=== PATIENT | male | born 1965 | race Caucasian/White ===

== ENCOUNTER → 2018-10-30 13:50 | Outpatient (CLI) | payer OTHER, SELFPAY ==
[2018-10-10 08:43] VITALS: BMI 30.9
--- NOTE | 2018-10-30 13:51 | ECHOCS_ITS ---
Reason For Study: HTN Procedure This was a 2D Doppler, Color Flow transthoracic echocardiogram. The study was technically difficult. Contrast injection was performed. Exam performed in department. Left Ventricle Normal LV size. Moderate eccentric left ventricular hypertrophy. Left ventricular systolic function is normal. The estimated ejection fraction is 70 %. Stage 1 diastolic dysfunction. Mid cavitary dynamic gradient 35 mm/Hg. No regional wall motion abnormalities noted. Right Ventricle Normal RV size. ICD or pacer leads identified within the right ventricle. Normal systolic function. Atria The left atrium is moderately enlarged. Normal right atrium. Mitral Valve Normal mitral valve. Mild (1+) eccentric mitral valve insufficiency. Tricuspid Valve Normal tricuspid valve. Aortic Valve Trisinus/trileaflet aortic valve. Mild (1+) aortic valve insufficiency. Pulmonic Valve Normal pulmonic valve. Great Vessels Normal aortic root. The pulmonary artery is normal size. Normal inferior vena cava. Pericardium/Pleural No pericardial effusion. Medication 22 gauge I.V. with prn adaptor inserted into right arm. Diluted definity 3.5ml given slow IV push to enhance endocardial definition. MMode/2D Measurements & Calculations LVIDd: 5.5 cm IVSd: 1.5 cm Ao root diam: 3.5 cm LVIDs: 2.4 cm LVPWd: 0.85 cm LA dimension: 5.1 cm FS: 56.8 % LAV(MOD-bp): 85.5 ml LA A4 area: 27.5 cm2 RA A4 area: 19.8 cm2 LAV(MOD-bp) Indexed: 38.2 ml/m2 LAV(MOD-sp2): 73.1 ml LAV(MOD-sp4): 99.9 ml Time Measurements MV dec time: 0.24 sec Doppler Measurements & Calculations MV E max osmani: 82.9 cm/sec Lat Peak E' Osmani: 6.2 cm/sec Med Peak E' Osmani: 4.3 cm/sec MV A max osmani: 99.9 cm/sec E/E' lat: 13.4 E/E' med: 19.2 MV E/A: 0.83 MV V2 max: 118.5 cm/sec MV P1/2t max osmani: 91.5 cm/sec Ao V2 max: 188.3 cm/sec MV max P.6 mmHg MV P1/2t: 78.3 msec Ao max P.2 mmHg MV V2 mean: 58.1 cm/sec MV dec slope: 342.2 cm/sec2 MV mean P.6 mmHg MV V2 VTI: 36.3 cm MVA(P1/2t): 2.8 cm2 AI max osmani: 369.3 cm/sec LV V1 max: 176.0 cm/sec PA V2 max: 107.9 cm/sec AI max P.5 mmHg LV V1 max P.4 mmHg AI dec slope: 54.9 cm/sec2 AI P1/2t: 1972 msec Interpretation Summary Normal LV size. Moderate eccentric left ventricular hypertrophy. Left ventricular systolic function is normal. The estimated ejection fraction is 70 %. Stage 1 diastolic dysfunction. Mid cavitary dynamic gradient 35 mm/Hg. Contrast injection was performed. Compared to prior study, there is no significant change. Ordering Physician: Garrett Noguera Referring Physician: Duane Ellison Performed By: West Rojas RCS
== END ==
PROVIDERS: Family Provider Family Medicine; PCP Family Medicine; Referring Provider Internal Medicine Cardiovascular Disease; Visit Provider Internal Medicine Cardiovascular Disease
DX: I10 Essential (primary) hypertension (principal); I42.2 Other hypertrophic cardiomyopathy
CPT/HCPCS: 93306; Q9957; A4216; C8929

== ENCOUNTER → 2019-01-26 15:34 | Outpatient (CLI) | payer OTHER, SELFPAY ==
[2018-10-10 08:43] VITALS: BMI 30.9
[2019-01-26 17:21] LABS: Absolute Lymphocyte Count 4.99 X10^3/uL (0.83-4.51); Absolute Neutrophil Count 4.9 X10^3/uL (2.0-7.7); Basophil# 0.07 X10^3/uL; Basophil% 0.6 % (0-1); Eosinophil# 0.19 X10^3/uL; Eosinophils% 1.7 % (0-5); Hematocrit 49.1 % (40-54); Hemoglobin 16.7 g/dL (13.0-16.5); Lymphocyte # 4.99 X10^3/ul (4.0); Lymphocyte % 44.6 % (19-41); Mean Corpuscular Volume 88.3 fL (80-94); Mean Platelet Vol. 11.5 fl (6.2-12.0); Monocyte# 0.98 X10^3/uL; Monocyte% 8.8 % (0-10); NRBC Flagged by Analyzer 0 % (0-5); Neutrophil # 4.92 X10^3/uL (2.7-7.7); Neutrophil % 43.9 % (47-70); Platelet Count 195 K/mm3 (150-450); RBC Distribution Width CV 13.2 % (11.6-14.6); RBC Distribution Width SD 42.3 fl (35.1-43.9); Red Blood Count 5.56 M/mm3 (4.6-6.2); White Blood Count 11.2 K/mm3 (4.4-11.0)
[2019-01-26 17:53] LABS: Anion Gap 6 (5-15); BUN 20 mg/dL (7-18); BUN/Creat Ratio 18.3 RATIO (10-20); Calcium,Total 8.8 mg/dL (8.5-10.1); Chloride 106 mmol/L (98-107); Creatinine, Serum 1.09 mg/dL (0.70-1.30); EST Glomerular Filtration Rate 74 mL/min (>60); Est Glom Filt Rate - Afr Amer 90 mL/min (>60); Glucose 73 mg/dL (74-106); Magnesium 2.4 mg/dL (1.6-2.6); Potassium 4.2 mmol/L (3.5-5.1); Sodium Level 141 mmol/L (136-145)
== END ==
PROVIDERS: Family Provider Family Medicine; PCP Family Medicine; Referring Provider Nurse Practitioner Family; Visit Provider Nurse Practitioner Family
DX: I42.2 Other hypertrophic cardiomyopathy (principal); I49.8 Other specified cardiac arrhythmias; R53.83 Other fatigue
CPT/HCPCS: 80048; 83735; 85025

== ENCOUNTER → 2019-04-14 10:29 | Outpatient (CLI) | payer OTHER, SELFPAY ==
[2018-10-10 08:43] VITALS: BMI 30.9
[2019-04-14 11:06] LABS: Absolute Lymphocyte Count 4.41 X10^3/uL (0.83-4.51); Absolute Neutrophil Count 4.3 X10^3/uL (2.0-7.7); Basophil# 0.09 X10^3/uL; Basophil% 0.9 % (0-1); Color, Urine Yellow (Yellow); Eosinophil# 0.27 X10^3/uL; Eosinophils% 2.8 % (0-5); Glucose, Dipstick Normal (Normal); Hematocrit 51.8 % (40-54); Hemoglobin 17.4 g/dL (13.0-16.5); Ketone-Dipstick Negative (Negative); Leukocyte Esterase-Dipstick Negative /ul (Negative); Lymphocyte # 4.41 X10^3/ul (4.0); Lymphocyte % 45.5 % (19-41); Mean Corp Hgb Conc 33.6 g/dL (32-36); Mean Corpuscular Hgb 29.6 pg (27.0-32.0); Mean Corpuscular Volume 88.1 fL (80-94); Mean Platelet Vol. 10.9 fl (6.2-12.0); Monocyte# 0.55 X10^3/uL; Monocyte% 5.7 % (0-10); NRBC Flagged by Analyzer 0 % (0-5); Neutrophil # 4.32 X10^3/uL (2.7-7.7); Neutrophil % 44.5 % (47-70); Nitrite-Dipstick Negative (Negative); Occult Blood-Urine Negative /ul (Negative); Platelet Count 197 K/mm3 (150-450); Protein-Dipstick 15 mg/dl (Negative); RBC Distribution Width CV 12.8 % (11.6-14.6); RBC Distribution Width SD 41.7 fl (35.1-43.9); Red Blood Count 5.88 M/mm3 (4.6-6.2); Urine Bilirubin Dipstick Negative (Negative); Urine Clarity Sl. Cloudy (Clear); Urine Urobilinogen Normal (Normal); White Blood Count 9.7 K/mm3 (4.4-11.0)
[2019-04-14 11:30] LABS: ALB/GLOB Ratio 1.3 RATIO (0.9-2.4); AST(SGOT) 30 U/L (15-37); Alanine Aminotransfer ALT/SGPT 50 U/L (16-61); Alkaline Phosphatase 69 U/L (45-117); Anion Gap 4 (5-15); BUN 15 mg/dL (7-18); BUN/Creat Ratio 12.9 RATIO (10-20); Calcium,Total 8.6 mg/dL (8.5-10.1); Chloride 107 mmol/L (98-107); Cholesterol 221 mg/dL (200); Creatinine, Serum 1.16 mg/dL (0.70-1.30); EST Glomerular Filtration Rate 69 mL/min (>60); Est Glom Filt Rate - Afr Amer 84 mL/min (>60); Globulin 3.1 g/dL (2.2-4.2); Glucose 91 mg/dL (74-106); High Density Lipoprotein 51 mg/dL; PSA,Total - Annual Screen 0.43 ng/mL (0.00-4.00); Potassium 4.7 mmol/L (3.5-5.1); Protein, Total 7.1 g/dL (6.4-8.2); Sodium Level 142 mmol/L (136-145); Triglycerides 249 mg/dL; Very Low Density Lipoprotein 50 mg/dL (5-40)
== END ==
PROVIDERS: Family Provider Family Medicine; PCP Family Medicine; Referring Provider Family Medicine; Visit Provider Family Medicine
DX: Z00.00 Encounter for general adult medical examination without abnormal findings (principal); I10 Essential (primary) hypertension; Z12.5 Encounter for screening for malignant neoplasm of prostate
CPT/HCPCS: 36415; 80053; 80061; 81002; 84153; 85025; G0103

== ENCOUNTER → 2020-04-22 16:44 | Outpatient (CLI) | payer OTHER, SELFPAY ==
[2020-04-22 12:49] VITALS: BMI 29.7
[2020-04-22 17:51] LABS: AST(SGOT) 24 U/L (15-37); Alanine Aminotransfer ALT/SGPT 37 U/L (16-61); Alkaline Phosphatase 63 U/L (45-117); Anion Gap 5 (5-15); BUN 20 mg/dL (7-18); BUN/Creat Ratio 18.2 RATIO (10-20); Bilirubin, Direct 0.22 mg/dL (0.00-0.30); Calcium,Total 8.7 mg/dL (8.5-10.1); Chloride 105 mmol/L (98-107); Cholesterol 229 mg/dL (200); EST Glomerular Filtration Rate 73 mL/min (>60); Est Glom Filt Rate - Afr Amer 89 mL/min (>60); Globulin 3.1 g/dL (2.2-4.2); Glucose 80 mg/dL (74-106); High Density Lipoprotein 61 mg/dL; Magnesium 2.4 mg/dL (1.6-2.6); Potassium 4.5 mmol/L (3.5-5.1); Protein, Total 7.1 g/dL (6.4-8.2); Sodium Level 138 mmol/L (136-145); Thyroid Stim Hormone (TSH) 1.94 uIU/mL (0.358-3.74); Triglycerides 158 mg/dL; Very Low Density Lipoprotein 32 mg/dL (5-40)
== END ==
PROVIDERS: PCP Family Medicine; Referring Provider Internal Medicine Cardiovascular Disease; Visit Provider Internal Medicine Cardiovascular Disease
DX: E78.5 Hyperlipidemia, unspecified (principal); I47.1 Supraventricular tachycardia; I42.2 Other hypertrophic cardiomyopathy
CPT/HCPCS: 36415; 80048; 80061; 80076; 83735; 84443

== ENCOUNTER 2020-06-20 06:46 | Day surgery (SDC) | payer OTHER, SELFPAY ==
[2020-04-22 12:49] VITALS: BMI 29.7
--- NOTE | 2020-06-12 11:41 | RAD_ITS ---
STUDY: X-RAY CHEST REASON FOR EXAM: Male, 55 years old. HOCM -- CATHETERIZATION TUESDAY TECHNIQUE: PA and lateral views of the chest. COMPARISON: Comparison is made with prior study dated 01/31/2015. FINDINGS: The lungs are clear and expanded. There is no demonstrated pleural abnormality. Normal size heart. A left-sided ICD is seen. Normal mediastinum and arleth. Normal visualized pulmonary arteries. Normal visualized aortic arch and descending thoracic aorta. There are degenerative changes of the visualized thoracic spine. Normal visualized ribs, clavicles, and shoulders. There is no demonstrated abnormality of the visualized soft tissue structures of the upper abdomen. RAD/Chest PA and Lateral IMPRESSION: No acute abnormality is seen. Electronically Signed: Floyd Tran MD at 11:56 EST , Service support ,
[2020-06-12 12:07] LABS: Absolute Lymphocyte Count 2.83 X10^3/uL (0.83-4.51); Absolute Neutrophil Count 3.4 X10^3/uL (2.0-7.7); Basophil# 0.05 X10^3/uL; Basophil% 0.7 % (0-1); Eosinophil# 0.14 X10^3/uL; Hematocrit 48.1 % (40-54); Hemoglobin 15.7 g/dL (13.0-16.5); Lymphocyte # 2.83 X10^3/ul (4.0); Mean Corp Hgb Conc 32.6 g/dL (32-36); Mean Corpuscular Hgb 29.2 pg (27.0-32.0); Mean Corpuscular Volume 89.4 fL (80-94); Mean Platelet Vol. 11.5 fl (6.2-12.0); Monocyte# 0.48 X10^3/uL; Monocyte% 6.9 % (0-10); NRBC Flagged by Analyzer 0 % (0-5); Neutrophil # 3.38 X10^3/uL (2.7-7.7); Platelet Count 179 K/mm3 (150-450); RBC Distribution Width SD 42.2 fl (35.1-43.9); Red Blood Count 5.38 M/mm3 (4.6-6.2); White Blood Count 6.9 K/mm3 (4.4-11.0)
[2020-06-12 12:40] LABS: Anion Gap 4 (5-15); BUN 17 mg/dL (7-18); BUN/Creat Ratio 15.9 RATIO (10-20); Calcium,Total 9.2 mg/dL (8.5-10.1); Chloride 106 mmol/L (98-107); Creatinine, Serum 1.07 mg/dL (0.70-1.30); EST Glomerular Filtration Rate 76 mL/min (>60); Est Glom Filt Rate - Afr Amer 92 mL/min (>60); Glucose 90 mg/dL (74-106); Potassium 4.7 mmol/L (3.5-5.1); Sodium Level 139 mmol/L (136-145)
[2020-06-19 09:58] VITALS: BMI 29.7
[2020-06-20] VITALS (13 sets, daily range): BP systolic 144–184; BP diastolic 77–96; PULSE 49–64; RESP 8–18; TEMP 36.2–36.6; O2SAT 94–99
--- NOTE | 2020-06-20 06:49 | HP_ITS ---
[facility] History of Present Illness Details: ALVARADO KIRBY, is a 55 M who presents to the office today for a follow-up visit. He is a gentleman with a history of hypertrophic cardiomyopathy hypertension status post ICD implantation who returns today for routine follow-up visit. He had had an episode where he had some symptoms with activity and came in and had his defibrillator interrogated. On he noted some palpitations and his interrogation today did confirm that he did have approximately 7 hours of probable atrial tachyarrhythmia. It appeared to have abated spontaneously. He did have an episode in January as well for a few beats. He otherwise feels well. He has lost a significant amount of weight which is commendable. He denies any chest pain or shortness breath and paroxysmal nocturnal dyspnea. He also denies any pedal edema and has had no neck, jaw discomfort suggest angina he says that he occasionally does feel some palpitations. He had his defibrillator interrogated today. His physical exam today demonstrates clear lungs and systolic murmur at the left sternal border but no pedal edema. His blood pressure is under excellent control. Intake Vital Signs 04/22/20 Height 6 ft 04/22/20 Weight: 219 lb 04/22/20 BMI 29.7 04/22/20 BP 133/80 H 04/22/20 Respiration 16 04/22/20 Pulse 60 04/22/20 Pulse Oximetry (%) 96 Intake Visit Reasons: 1 Y FU, pacer 3:30 Allergies cefadroxil [From Duricef] Allergy (Severe, Verified 04/22/20 12:50) Rash Medications metoprolol succinate 100 mg tablet,extended release 24 hr 100 mg PO BID #180 tab 04/22/20 [Rx Confirmed 04/22/20] Ejection fraction %: 65 to 70 [facility] Medical History Hypertrophic cardiomyopathy (Chronic) Hyperlipidemia (Chronic) History of melanoma (Resolved) Obesity (Chronic) Atrial arrhythmia (Resolved) Frequent PVCs (Resolved) Non-sustained ventricular tachycardia (Resolved) Syncope (Resolved) Surgical History History of implantable cardiac defibrillator (ICD) (Chronic 07/24/14) History of arthroscopic knee surgery (Resolved) History of left heart catheterization (Resolved 06/04/05) History of melanoma excision (Resolved) History of shoulder surgery (Resolved) Family History Father CAD (coronary artery disease) Hx of CABG Myocardial infarction, Onset Age: 41 Uncle CAD (coronary artery disease) Myocardial infarction, Onset Age: 40 Social History (Updated 04/22/20 @ 16:[address] Garrett Noguera MD) Smoking Status: Never smoker alcohol intake: current details: Rare substance use type: does not use ROS Const Const: Positive for weight loss; negative for fatigue, weakness, headache(s), frequent falls, difficulty sleeping or excessive sweating Eyes Eyes: Negative for loss of peripheral vision, transient loss of vision, blurry vision, double vision or tunnel vision ENT ENT: Negative for headache(s), dizziness, Nosebleed/epistaxis or balance problems Cardio Chest Pain: No Palpitations: Yes (feels weak, lightheaded, sob) feels like its: fast, thumping, pounding Edema: None Muscle aches with walking: None Resp Respiratory: Negative for SOB with activity, SOB at rest, SOB orthopnea\SOB lying down, Cough or paroxysmal nocturnal dyspnea GI GI: Negative nausea, vomiting, heartburn or black,tarry stools : Negative for hematuria Musc Musc: Negative for muscle aches/ myalgia, muscle weakness, joint pain or balance problems Skin Skin: Negative non-healing lesions, rash or unusual bruising Neuro Neuro: Negative for dizziness, lightheadedness, near syncope, syncope, orthostatic symptoms, frequent falls, headache(s), weakness, blurry vision, double vision or lack of coordination Amos Hematologic/Lymphatic: Negative for easy bleeding or easy bruising Endo Endo: Negative for fatigue, excessive sweating or increased thirst/drinking Psych Psych: Negative for anxiety or depression Allergy Allergy/Immunology: Negative for hives, Negative for rash Cardiology Exam Const Appearance: cooperative, healthy appearing, no acute distress, well developed and well groomed Nutritional Appearance: average body habitus and well nourished Orientation: alert, awake and oriented x3 Head Head: normal to inspection, normocephalic and atraumatic Ears: hearing grossly normal bilaterally and external ears normal Nose: external nose normal, nares normal, nasal mucous membranes and turbinates normal, septum normal, no nasal discharge Face and Sinus: face symmetric Mouth: oral mucosae normal, tongue normal, oropharynx normal and moist mucous membranes Teeth and gingiva: dentition normal Throat: posterior oropharynx normal, tonsils normal and uvula midline Eyes General: appearance normal, both eyes and all related structures Eyelids: eyelids normal Conjunctivae: conjunctivae normal Pupils: PERRL, normal by confrontation and accommodation normal EOM: EOM intact bilaterally Neck Neck: normal visual inspection, trachea midline and no JVD JVD: +5 Carotids: normal carotid upstroke and bounding pulses Chest Chest inspection: normal inspection of the chest, symmetric chest movement and normal respiratory effort Auscultation: Bilateral: Clear to Auscultation Cardio Palpation: normal PMI Rate: regular rate Rhythm: regular rhythm Heart sounds: S1 normal, S2 normal and normal, physiologic split S2; negative rub, gallop or murmur GI GI: normal to inspection, soft, no hepatosplenomegaly and bowel sounds present Neuro General: alert, awake, oriented x3, gait normal, moves all extremities and no focal sensory deficit Skin Skin: no rashes or lesions noted Extremities Pulses: Normal: Right Femoral Pulse, Left Femoral Pulse, Right Dorsalis Pedis Pulse, Left Dorsalis Pedis Pulse, Right Posterior Tibial Pulse, Left Posterior Tibial Pulse, Right Radial Pulse, Left Radial Pulse Lower Extremity Edema: None: Bilateral Musculoskel Musculoskeletal: No joint tenderness Psych Psychological: normal affect Assessment & Plan 1. Hypertrophic cardiomyopathy I42.2 Plan He does have a history of hypertrophic cardiomyopathy his last echocardiogram in October 2018 demonstrated an ejection fraction of 70%, moderate left ventricular hypertrophy, mid cavity gradient of 35 mmHg. He has had no other symptomatology and the plan is to continue the same and repeat the echo at his next visit. Orders Orders: Basic Metabolic Profile (BMP) Today Liver Profile Today 2. History of implantable cardiac defibrillator (ICD) Z95.810 Plan He is status post ICD implantation his ICD was interrogated today it is noted to be functioning well with a longevity of 6 years. He did notice some atrial tachyarrhythmias which was confirmed I have suggested that he can take an extra metoprolol if this happens again. I do not think there is a reason for an antiarrhythmic at this time. No evidence of atrial fibrillation was noted. 3. Atrial tachycardia I47.1 Plan He does have a history of atrial tachyarrhythmia and this would continue to be monitored through our device clinic. Thank you for allowing me to participate in his care. A lipid profile is also warranted for risk stratification. 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) Coding Level of Care Code Off vis,est,level 4 Diagnoses Hypertrophic cardiomyopathy I42.2 History of implantable cardiac defibrillator (ICD) Z95.810 Atrial tachycardia I47.1 Coding Level of Care Code Off vis,est,level 4 Diagnoses Hypertrophic cardiomyopathy I42.2 History of implantable cardiac defibrillator (ICD) Z95.810 Atrial tachycardia I47.1 Supplemental Info Supplemental Information Labs LDL Cholesterol 120 mg/dL (0-130) 04/14/19 HDL Cholesterol 51 mg/dL (40-) 04/14/19 Triglycerides 249 mg/dL (-199) H 04/14/19 VLDL Cholesterol 50 mg/dL (5-40) H 04/14/19 Diagnostics Echocardiogram 10/30/18 Pacemaker Check 05/25/19
--- NOTE | 2020-06-20 08:37 | CL.D_ITS ---
Patient Name: ALVARADO KIRBY Study Date: 06/20/2020 Performing: Garrett Noguera MD Ht: 72.04 inches 183 cm : 1965 Wt: 218.26 lbs 99 kg Age: 55 Gender: male BSA: 2.21 PROCEDURE(S) PERFORMED [id number]/COR/LV [id number] W OR WO PTCA, SINGLE CORONARY ARTERY CLINICAL PROFILE AND INDICATIONS Indications: Cardiac Arrythmia Heart Failure: None Stress/Imaging Stress/Image Study Performed: No CAD Presentations: No Sxs, no angina. CONCLUSIONS High-grade stenosis of the mid left circumflex artery. Minimal disease noted in the LAD and right co ronary artery RECOMMENDATIONS Referred for immediate PCI DESCRIPTION OF PROCEDURE The patient arrived to the procedure lab. The risks and benefits of the procedure as well as a full d escription of our services here and current unavailability of surgical backup were fully explained to the patient and/or their significant other prior to the catheterization. The Timeout was completed, verifying the correct patient and procedure. The patient's procedural site was prepped and draped in the usual fashion. Local anesthetic was given subcutaneously to right radial region with Lidocaine 2% . Using a modified Seldinger technique, arterial access was obtained via the right radial artery, a 6 Fr sheath was inserted. Left Coronary Artery selective angiography was performed in multiple views u sing a 5 Fr. 4.0 [place] catheter. Right Coronary Artery selective angiography was then performed in mu ltiple views using a 5 Fr. 4.0 [place] catheter. Left Ventriculography was performed in JAY projection using a 5 Fr. Pigtail catheter. LV to AO pullback pressures were then recorded. CORONARY ANGIOGRAPHY DOMINANCE: Right Dominant LEFT HEART ASSESSMENT Left Ventricular Ejection Fraction: by LV Gram 70 % Normal LV wall motion Cardiomyopathy: Hypertrophic LEFT MAIN: Angiographically normal LEFT ANTERIOR DESCENDING ARTERY: Mild luminal irregularities CIRCUMFLEX ARTERY: MID CIRC: 99 % Stenosis RIGHT CORONARY ARTERY: Mild luminal irregularities COMPLICATIONS PROCEDURE MEDICATIONS Fentanyl 50 mcg IV Versed 1 mg IV Versed 1 mg IV Oxygen: 2 L/min via nasal cannula Brilinta 180 mg PO @ 06/20/2020 08:16:42 Heparin diluted in 23cc Heparinized saline. Patient given 10cc IA of this solution. 06/20/2020 07:58:2 5 Verapamil 2.5mg, Ntg 100mcgs, 2000 units of Heparin diluted in 23cc Heparinized saline. Patient give n 10cc IA of this solution. 06/20/2020 07:58:25 SUMMARY OF HEMODYNAMIC DATA Time AIR REST ECG 07:14:41 AO 136/78 (102) SA 08:13:45 LV 105/9, 19 08:19:35 LV 102/8, 14 08:19:41 LV 108/12, 22 08:20:46 LVp 107/11, 19 08:20:50 AOp 114/70 (91) 08:20:55 Signed By Garrett Noguera MD On 06/20/2020 08:36:46 Garrett Noguera MD
--- NOTE | 2020-06-20 10:30 | EKG12_ITS ---
Test Reason : POST PCI Blood Pressure : / mmHG Vent. Rate : 054 BPM Atrial Rate : 054 BPM P-R Int : 170 ms QRS Dur : 112 ms QT Int : 476 ms P-R-T Axes : 014 -36 106 degrees QTc Int : 451 ms Sinus bradycardia Left axis deviation T wave abnormality, consider lateral ischemia Abnormal ECG Confirmed by WILL JUAN, GARRETT ([id number]), television news video editor PERCY PACKER ([id number]) on 06/24/2020 12:37:25 PM Referred By: Garrett Noguera Confirmed By:GARRETT NOGUERA MD
[2020-06-20] MEDS: 0.9% Normal Saline 1,000 ML 75 ML IV (10:40)
--- NOTE | 2020-06-20 11:29 | CRPHASE1_ITS ---
Patient Communication PHII Cardiac Rehab Discussed with Patient:: Yes Guide to Cardiac Rehab Given to Patient:: Yes Cardiac Rehab Facility Choice List Given to Patient:: Yes - Pt chooses [facility] Choice Program [facility] CR PHII:: Communication Given to CR, Refer to [facility] Manager Performance:: Dr. Haskins Refer Phase II Cardiac Rehab:: Yes Sessions:: 36 sessions - 3 days/wk, 12 weeks Cardiac Rehabilitation Info Cardiac Rehabilitation Program Information: Cardiac Rehabilitation is important for patients like you who are recovering from a heart problem. Cardiac rehabilitation programs are recognized as integral to the continued care of the patient with coronary heart disease. The cardiac rehabilitation program is designed to optimize a patient's physical, psychological, and social functioning. Health special needs caregiver work in cardiac rehabilitation programs and assist you with getting the treatments you need to get stronger and healthier - like exercise, healthy eating habits, and medications. Cardiac rehabilitation has been show to help people with heart problems live longer and have better life enjoyment than people who do not go to cardiac rehabilitation. Please contact the Cardiac Rehabilitation Program at [facility] at in two weeks if you have not heard from them.
--- NOTE | 2020-06-20 11:30 | CRPH1.INSTRU ---
General Education CAD and cardiac anatomy and function:: Patient communicates acknowledgment Explanation of diagnoses and procedures:: Patient communicates acknowledgment Sign/Symptoms of NM:: Patient communicates acknowledgment Antiplatelet therapy: Patient communicates acknowledgment Proper use of NTG-SL: Not instructed Emergency procedures and activation of EMS: Patient communicates acknowledgment Compliance of all prescribed medications: Patient communicates acknowledgment Smoking Nicotine/Smoking Response Code:: Patient communicates acknowledgment Dyslipidemia Dyslipidemia Response Code:: Patient communicates acknowledgment Overweight/Obesity Patient Overweight/Obesity Risk Factors Are:: Overweight = 26-29 Overweight/Obesity:: Patient communicates acknowledgment Hypertension Hypertension:: Patient communicates acknowledgment Heart Disease Heart Disease Response Code:: Patient communicates acknowledgment Diabetes Diabetes:: Patient communicates acknowledgment Metabolic Syndrome Metabolic Syndrome Response Code:: Patient communicates acknowledgment Sedentary Sedentary Response Code:: Patient communicates acknowledgment Stress Stress Response Code:: Patient communicates acknowledgment
--- NOTE | 2020-06-20 13:46 | CL.PCI_ITS ---
PCI Cardiac Cath Report PCI Report: Procedure performed; Successful percutaneous core intervention of high-grade proximal left circumflex stent Using 2.5 x 22 mm drug-eluting stent/resolute Preprocedure stenosis is a 95% and ERROL-3 flow with reduction of stenosis post stent to 0% and maintaining ERROL-3 flow post procedure. Pre-procedure; This patient is a 55-year-old with history of hypertrophic cardiomyopathy, hypertension Had ICD device He is to see his primary irb compliance coordinator Dr. Noguera in the office where he had symptoms of palpitation and atrial arrhythmia his device has been interrogated LV function is preserved Based on his clinical presentation he was brought into the [facility] by his primary irb compliance coordinator underwent cardiac catheterization I reviewed the cardiac catheterization and discussed the plan with the Dr. Noguera He had left main normal angiographically, had mild nonobstructive LAD and left circumflex Had a very high-grade stenosis of at least 95% of the proximal left circumflex which is moderate sized vessel. Patient was given Brilinta 180 mg, aspirin and we used heparin as an anticoagulant Interventional equipment and plan; 1. We used 6 Moldovan 3.5 EBU guide catheter 2. We used 2 x 15 mm balloon We used 2.5 x 22 resolute/drug-eluting stent. Consent; Risk and benefit of the procedure explained in detail the patient elected to proceed informed consent obtained Procedure in detail; We proceed with the guide catheter cannulate the left main ostium without difficulty then we proceed with a run-through wire across the lesion in the proximal left circumflex, followed by balloon dilatation using 2.0 balloon and followed by placement of a drug-eluting stent 2.5 x 22 is explained Patient tolerated the procedure very well with no complication and achievement of excellent result with no evidence of dissection or flow limitation of the left circumflex artery Following this all catheter removed TR band applied to right radial artery area to maintain hemostasis. Conclusion and recommendations; Patient will be on dual antiplatelet therapy with the Brilinta and aspirin at least for 1 year if no complication and will continue on medical therapy with his primary irb compliance coordinator No complication in the Sample Processor. Suleman Haskins MD,[facility]
--- NOTE | 2020-06-20 14:02 | CASEMGMT ---
Pt to be sent home on Brilinta. Pt provided Brilinta copay, explanation provided. Pt denies further questions. No cooncerns returning home.
--- NOTE | 2020-06-20 16:35 | PCM.DC.CCA ---
<Lauren Haynes - Last Filed: 06/20/20 16:58> Discharge Diet: Low fat/ Low Cholesterol Lifting Restrictions: 10 pounds and also avoid any pushing or pulling for 3 days after your test. Call your doctor if your incision/area has: Continuous Slow Oozing, Sudden Increased Bleeding, Increased Pain/ Swelling, Increased Redness, Foul Smelling Discharge, Swelling at the incision site Call your doctor if you observe: Fever of 101 or Higher, Shortness of breath, Chest pain Additional Instructions: You were started on Brilinta. This medication is important to keep you stent open. This can NOT be stopped fro at least one year. At your next Office visit, we can discuss switching this to a less expensive medication if need be. I have also started you on 2 new medications to help with your heart. You were started on Lisinopril and atorvastatin. I sent these to the local pharmacy An appt was made for a follow up visit at the [facility], if you can not make this appt please call the office to reschedule. Allergies/Adverse Reactions: Allergies cefadroxil [From Duricef] Allergy (Severe, Verified 06/19/20 10:07) Rash Medications to take at Discharge aspirin 81 mg tablet,delayed release 81 mg PO DAILY 06/05/20 Atorvastatin Calcium 40 mg PO QHS #30 tab 06/20/20 Lisinopril [Zestril] 5 mg PO DAILY #30 tab 06/20/20 Ticagrelor [Brilinta] 90 mg PO BID #60 tab 06/20/20 atorvastatin 40 mg tablet 40 mg PO DAILY #30 tab 06/20/20 Metoprolol Succinate 25 mg PO BID #60 tab.er.24h 06/21/20 The following prescriptions were given: Atorvastatin Calcium 40 mg PO QHS #30 tab Ticagrelor [Brilinta] 90 mg PO BID #60 tab Transmission Status: Received by [facility]/pharmacy #[id number] Metoprolol Succinate 25 mg PO BID #60 tab.er.24h Transmission Status: Pending to [facility]/pharmacy #[id number] Lisinopril [Zestril] 5 mg PO DAILY #30 tab Transmission Status: Received by [facility]/pharmacy #[id number] Orders to be completed after discharge: Phase II, Outpatient Cardiac Rehab Location: None Selected Primary Care Physician: Duane Ellison MD [Primary Care Provider] - Test Results: Test results from this visit will be discussed in further detail at your follow-up appointment, if applicable. Please Follow Up With: Lauren Haynes PA When: 07/15 at 1:30 Cardiac Rehabilitation Info Cardiac Rehabilitation Program Information: Cardiac Rehabilitation is important for patients like you who are recovering from a heart problem. Cardiac rehabilitation programs are recognized as integral to the continued care of the patient with coronary heart disease. The cardiac rehabilitation program is designed to optimize a patient's physical, psychological, and social functioning. Health managed care director work in cardiac rehabilitation programs and assist you with getting the treatments you need to get stronger and healthier - like exercise, healthy eating habits, and medications. Cardiac rehabilitation has been show to help people with heart problems live longer and have better life enjoyment than people who do not go to cardiac rehabilitation. Please contact the Cardiac Rehabilitation Program at [facility] at in two weeks if you have not heard from them. <Suleman Haskins - Last Filed: 06/21/20 11:30> Discharge Activity: Return to Normal Activity Call your doctor if you observe: Dizziness, Fainting spells, Swelling in the ankles, Increased palpitations (irregular heartbeat), Uncontrolled pain Please follow up with your Primary Care Physician in: 2 weeks Test Results: Test results from this visit will be discussed in further detail at your follow-up appointment, if applicable. Cardiac Rehabilitation Info Cardiac Rehabilitation Program Information: Cardiac Rehabilitation is important for patients like you who are recovering from a heart problem. Cardiac rehabilitation programs are recognized as integral to the continued care of the patient with coronary heart disease. The cardiac rehabilitation program is designed to optimize a patient's physical, psychological, and social functioning. Health managed care director work in cardiac rehabilitation programs and assist you with getting the treatments you need to get stronger and healthier - like exercise, healthy eating habits, and medications. Cardiac rehabilitation has been show to help people with heart problems live longer and have better life enjoyment than people who do not go to cardiac rehabilitation. Please contact the Cardiac Rehabilitation Program at [facility] at in two weeks if you have not heard from them.
[2020-06-20] MEDS: MELATONIN 3 MG TABLET PO (23:59)
[2020-06-21] VITALS (7 sets, daily range): BP systolic 142–165; BP diastolic 80–88; PULSE 48–65; RESP 16; TEMP 36.5–36.7; O2SAT 94–99
--- NOTE | 2020-06-21 00:22 | NURSING ---
Per pt request, vitals and second assessment done at midnight so pt can sleep until 6 am without being woken up. ROSEANN Pickens.
[2020-06-21 08:02] LABS: Hematocrit 48.3 % (40-54); Hemoglobin 16.1 g/dL (13.0-16.5); Mean Corp Hgb Conc 33.3 g/dL (32-36); Mean Corpuscular Hgb 29.8 pg (27.0-32.0); Mean Corpuscular Volume 89.4 fL (80-94); Mean Platelet Vol. 11.5 fl (6.2-12.0); Platelet Count 158 K/mm3 (150-450); RBC Distribution Width CV 13.2 % (11.6-14.6); White Blood Count 6.7 K/mm3 (4.4-11.0)
[2020-06-21] MEDS: Aspirin E.C. 81 MG Tablet PO (08:09)
[2020-06-21] MEDS: TICAGRELOR 90 MG TABLET PO (08:10)
[2020-06-21 08:20] LABS: ALB/GLOB Ratio 1.3 RATIO (0.9-2.4); AST(SGOT) 18 U/L (15-37); Alanine Aminotransfer ALT/SGPT 26 U/L (16-61); Albumin, Serum 3.5 g/dL (3.2-5.0); Alkaline Phosphatase 63 U/L (45-117); Anion Gap 4 (5-15); BUN 12 mg/dL (7-18); BUN/Creat Ratio 13.2 RATIO (10-20); Calcium,Total 8.4 mg/dL (8.5-10.1); Chloride 112 mmol/L (98-107); Creatinine, Serum 0.91 mg/dL (0.70-1.30); EST Glomerular Filtration Rate 91 mL/min (>60); Est Glom Filt Rate - Afr Amer 110 mL/min (>60); Globulin 2.7 g/dL (2.2-4.2); Glucose 101 mg/dL (74-106); Potassium 4.3 mmol/L (3.5-5.1); Protein, Total 6.2 g/dL (6.4-8.2); Sodium Level 141 mmol/L (136-145)
--- NOTE | 2020-06-21 10:00 | EKG12_ITS ---
Test Reason : AM EKG Blood Pressure : / mmHG Vent. Rate : 052 BPM Atrial Rate : 052 BPM P-R Int : 160 ms QRS Dur : 108 ms QT Int : 488 ms P-R-T Axes : 033 -18 087 degrees QTc Int : 453 ms Sinus bradycardia T wave abnormality, consider anterolateral ischemia Abnormal ECG When compared with ECG of 20-JUN-2020 10:08, MANUAL COMPARISON REQUIRED, DATA IS UNCONFIRMED Confirmed by WILL JUAN, GARRETT ([id number]), video tape editor PERCY PACKER ([id number]) on 06/24/2020 12:51:01 PM Referred By: Garrett Noguera Confirmed By:GARRETT NOGUERA MD
--- NOTE | 2020-06-21 12:45 | NURSING ---
at bedside. Discharge teaching completed. Questions answered.
== END 2020-06-21 12:55 | disposition home or self-care (01) ==
LOC: CLSP 06:46 → PCU 10:59
PROVIDERS: Internal Medicine Interventional Cardiology; PCP Family Medicine; Referring Provider Internal Medicine Cardiovascular Disease; Visit Provider Internal Medicine Cardiovascular Disease
DX: I42.2 Other hypertrophic cardiomyopathy (principal); I47.1 Supraventricular tachycardia; Z95.810 Presence of automatic (implantable) cardiac defibrillator; R01.1 Cardiac murmur, unspecified; E78.5 Hyperlipidemia, unspecified; E66.9 Obesity, unspecified; Z88.1 Allergy status to other antibiotic agents; Z82.49 Family history of ischemic heart disease and other diseases of the circulatory system
CPT/HCPCS: 36415; 71046; 80048; 80053; 85025; 85027; 92928; 93005; 93458; 99152; 99153; J7030; J7040; C1725; C1769; C1874; C1887; C1894; C9600; J1327; Q9967

== ENCOUNTER → 2021-01-13 13:56 | Outpatient (CLI) | payer OTHER, SELFPAY ==
[2021-01-13 17:53] LABS: Anion Gap 8 (5-15); BUN 24 mg/dL (7-18); BUN/Creat Ratio 18.2 RATIO (10-20); Calcium,Total 8.4 mg/dL (8.5-10.1); Chloride 105 mmol/L (98-107); Creatinine, Serum 1.32 mg/dL (0.70-1.30); EST Glomerular Filtration Rate 59 mL/min (>60); Est Glom Filt Rate - Afr Amer 72 mL/min (>60); Glucose 86 mg/dL (74-106); Magnesium 2.3 mg/dL (1.6-2.6); Potassium 4.5 mmol/L (3.5-5.1); Sodium Level 141 mmol/L (136-145)
== END ==
PROVIDERS: PCP Family Medicine; Referring Provider Internal Medicine Cardiovascular Disease; Visit Provider Internal Medicine Cardiovascular Disease
DX: I42.2 Other hypertrophic cardiomyopathy (principal); I47.1 Supraventricular tachycardia; I25.10 Atherosclerotic heart disease of native coronary artery without angina pectoris; I51.4 Myocarditis, unspecified; I47.2 Ventricular tachycardia; E78.5 Hyperlipidemia, unspecified; Z85.820 Personal history of malignant melanoma of skin
CPT/HCPCS: 36415; 80048; 83735; 93225; 93226

== ENCOUNTER → 2021-01-23 14:59 | Outpatient (CLI) | payer OTHER, SELFPAY ==
--- NOTE | 2021-01-23 15:01 | ECHOCS_ITS ---
Version 2 Reason For Study: Arrhythmia Procedure This was a 2D Doppler, Color Flow transthoracic echocardiogram. Contrast injection was performed. Exam performed in department. Left Ventricle Normal LV size. Moderate concentric left ventricular hypertrophy. The echo findings are consistent with hypertrophic cardiomyopathy. Mid cavitary obliteration noted. The estimated ejection fraction is 75 %. Left ventricular systolic function is hyperdynamic. [place] : Hypokinetic. Apical wall motion abnormality may reflect pacemaker activation. Right Ventricle Normal RV size. ICD or pacer leads identified within the right ventricle. Normal systolic function. Atria Normal left atrium. Normal right atrium. Mitral Valve Normal mitral valve. Mild (1+) mitral valve insufficiency. Tricuspid Valve Normal tricuspid valve. Mild (1+) tricuspid valve insufficiency. Pulmonary artery systolic pressure is 32 mmHg. Aortic Valve Normal aortic valve. Mild (1+) aortic valve insufficiency. Great Vessels Normal aortic root. The pulmonary artery is normal size. Normal inferior vena cava. Pericardium/Pleural No pericardial effusion. Medication Diluted definity 4ml given slow IV push to enhance endocardial definition. MMode/2D Measurements & Calculations LVIDd: 5.0 cm IVSd: 1.6 cm Ao root diam: 3.4 cm LVIDs: 2.4 cm LVPWd: 1.3 cm RVDd: 3.5 cm FS: 51.9 % LAV(MOD-bp): 57.3 ml LA A4 area: 18.9 cm2 LA dimension(2D): 5.4 cm LAV(MOD-bp) Indexed: 26.1 ml/m2 LAV(MOD-sp2): 64.5 ml LAV(MOD-sp4): 49.9 ml RA A4 area: 15.6 cm2 Doppler Measurements & Calculations MV E max osmani: 78.5 cm/sec Lat Peak E' Osmani: 7.1 cm/sec Med Peak E' Osmani: 3.9 cm/sec MV A max osmani: 90.8 cm/sec E/E' lat: 11.1 E/E' med: 20.3 MV E/A: 0.86 Ao V2 max: 179.8 cm/sec AI max osmani: 365.7 cm/sec LV V1 max: 160.0 cm/sec Ao max P.9 mmHg AI max P.5 mmHg LV V1 max P.2 mmHg Ao V2 mean: 133.7 cm/sec AI dec slope: 126.3 cm/sec2 Ao mean P.7 mmHg AI P1/2t: 848.3 msec Ao V2 VTI: 39.9 cm PA V2 max: 114.6 cm/sec TR max osmani: 268.2 cm/sec TR max P.8 mmHg ECHO/Echo Complete W/ Contrast Interpretation Summary Normal LV size. Moderate concentric left ventricular hypertrophy. The estimated ejection fraction is 75 %. Left ventricular systolic function is hyperdynamic. Mid cavitary obliteration noted Contrast injection was performed. Ordering Physician: Garrett Noguera Referring Physician: Duane Ellison Performed By: Vianey Pacheco, ALEJANDRA, RVT
== END ==
PROVIDERS: PCP Family Medicine; Referring Provider Internal Medicine Cardiovascular Disease; Visit Provider Internal Medicine Cardiovascular Disease
DX: I42.2 Other hypertrophic cardiomyopathy (principal); I47.1 Supraventricular tachycardia; Z95.5 Presence of coronary angioplasty implant and graft
CPT/HCPCS: 93306; Q9957; A4216; C8929; J3490

== ENCOUNTER 2021-05-05 08:28 | Outpatient (CLI) | payer OTHER, SELFPAY | END 2021-05-05 23:59 | disposition short-term general hospital (02) | LOC: LABSPEC 08:29 | PROVIDERS: PCP Family Medicine; Referring Provider Physician Assistant Surgical; Visit Provider Physician Assistant Surgical | DX: Z11.52 Encounter for screening for COVID-19 (principal) | CPT/HCPCS: 87635; U0003; U0005 ==

== ENCOUNTER → 2021-09-29 | Outpatient (CLI) | payer OTHER, SELFPAY | END | disposition home or self-care (01) | PROVIDERS: PCP Family Medicine; Visit Provider Physician Assistant Medical | DX: G47.33 Obstructive sleep apnea (adult) (pediatric) (principal) | CPT/HCPCS: 95811 ==

== ENCOUNTER → 2021-10-03 | Outpatient (CLI) | payer OTHER, SELFPAY ==
[2021-10-03 11:18] LABS: Absolute Lymphocyte Count 3.62 X10^3/uL (0.83-4.51); Absolute Neutrophil Count 3.6 X10^3/uL (2.0-7.7); Basophil# 0.05 X10^3/uL; Basophil% 0.6 % (0-1); Eosinophil# 0.14 X10^3/uL; Eosinophils% 1.8 % (0-5); Hemoglobin 16.1 g/dL (13.0-16.5); Lymphocyte # 3.62 X10^3/ul (0.83-4.51); Lymphocyte % 45.4 % (19-41); Mean Corp Hgb Conc 33.5 g/dL (32-36); Mean Corpuscular Hgb 29.5 pg (27.0-32.0); Mean Corpuscular Volume 88.1 fL (80-94); Mean Platelet Vol. 10.9 fl (6.2-12.0); Monocyte# 0.55 X10^3/uL; Monocyte% 6.9 % (0-10); NRBC Flagged by Analyzer 0 % (0-5); Platelet Count 178 K/mm3 (150-450); RBC Distribution Width CV 13.3 % (11.6-14.6); RBC Distribution Width SD 42.8 fl (35.1-43.9); Red Blood Count 5.45 M/mm3 (4.6-6.2)
[2021-10-03 12:07] LABS: ALB/GLOB Ratio 1.2 RATIO (0.9-2.4); AST(SGOT) 32 U/L (15-37); Alanine Aminotransfer ALT/SGPT 55 U/L (16-61); Albumin, Serum 3.7 g/dL (3.2-5.0); Alkaline Phosphatase 66 U/L (45-117); Anion Gap 3 (5-15); BUN 18 mg/dL (7-18); BUN/Creat Ratio 16.1 RATIO (10-20); Calcium,Total 8.3 mg/dL (8.5-10.1); Chloride 108 mmol/L (98-107); Cholesterol 112 mg/dL (200); Creatinine, Serum 1.12 mg/dL (0.70-1.30); EST Glomerular Filtration Rate 71 mL/min (>60); Est Glom Filt Rate - Afr Amer 86 mL/min (>60); Glucose 94 mg/dL (74-106); High Density Lipoprotein 48 mg/dL; PSA,Total - Annual Screen 0.46 ng/mL (0.00-4.00); Potassium 4.6 mmol/L (3.5-5.1); Protein, Total 6.7 g/dL (6.4-8.2); Sodium Level 139 mmol/L (136-145); Triglycerides 49 mg/dL; Very Low Density Lipoprotein 10 mg/dL (5-40)
== END | disposition home or self-care (01) ==
LOC: LAB 10:37
PROVIDERS: PCP Family Medicine; Referring Provider Family Medicine; Visit Provider Family Medicine
DX: Z00.00 Encounter for general adult medical examination without abnormal findings (principal); E78.5 Hyperlipidemia, unspecified; I25.10 Atherosclerotic heart disease of native coronary artery without angina pectoris; I10 Essential (primary) hypertension; Z12.5 Encounter for screening for malignant neoplasm of prostate
CPT/HCPCS: 36415; 80053; 80061; 84153; 85025; G0103

== ENCOUNTER → 2022-01-18 | Outpatient (CLI) | payer OTHER, SELFPAY | END | disposition home or self-care (01) | LOC: SL 08:40 | PROVIDERS: PCP Family Medicine; Visit Provider Nurse Practitioner Acute Care | DX: Z46.89 Encounter for fitting and adjustment of other specified devices (principal) ==

== ENCOUNTER → 2022-04-08 | Outpatient (CLI) | payer OTHER, SELFPAY | END | disposition home or self-care (01) | LOC: SL 13:32 | PROVIDERS: PCP Family Medicine; Visit Provider Internal Medicine Critical Care Medicine | DX: Z46.89 Encounter for fitting and adjustment of other specified devices (principal) ==

== ENCOUNTER → 2022-06-04 | Outpatient (CLI) | payer OTHER, SELFPAY ==
--- NOTE | 2022-06-04 13:45 | ECHOCS_ITS ---
Reason For Study: HOCM Procedure This was a 2D Doppler, Color Flow transthoracic echocardiogram. The study was technically difficult. Contrast injection was performed. Exam performed in department. Left Ventricle Normal LV size. Moderate concentric left ventricular hypertrophy. The estimated ejection fraction is 80 %. Mid cavitary dynamic gradient 32 mmHg increasing to 42 mmHg with Valsalva mm/Hg. Stage 3 diastolic dysfunction. No regional wall motion abnormalities noted. Right Ventricle Normal RV size. ICD or pacer leads identified within the right ventricle. Normal systolic function. Atria The left atrium is mildly enlarged. Normal right atrium. Mitral Valve Normal mitral valve. Mild-Moderate (1-2+) eccentric mitral valve insufficiency. Tricuspid Valve Normal tricuspid valve. Mild (1+) tricuspid valve insufficiency. Pulmonary artery systolic pressure is 30 mmHg. Aortic Valve Trisinus/trileaflet aortic valve. Mild (1+) aortic valve insufficiency. Pulmonic Valve Normal pulmonic valve. Mild (1+) pulmonic valve insufficiency. Great Vessels Normal aortic root. The pulmonary artery is normal size. Normal inferior vena cava. Pericardium/Pleural No pericardial effusion. Medication 22 gauge I.V. with prn adaptor inserted into right arm. Diluted definity 2ml given slow IV push to enhance endocardial definition. MMode/2D Measurements & Calculations LVIDd: 5.4 cm IVSd: 1.4 cm Ao root diam: 3.2 cm LVIDs: 2.7 cm LVPWd: 1.2 cm FS: 49.3 % LAV(MOD-sp4): 93.3 ml LA A4 area: 26.4 cm2 LA dimension(2D): 4.5 cm RA A4 area: 15.4 cm2 Time Measurements MV dec time: 0.23 sec Doppler Measurements & Calculations MV E max osmani: 91.9 cm/sec Lat Peak E' Osmani: 8.9 cm/sec Med Peak E' Osmani: 5.6 cm/sec MV A max osmani: 28.6 cm/sec E/E' lat: 10.3 E/E' med: 16.5 MV E/A: 3.2 MV V2 max: 110.9 cm/sec MV dec slope: 406.2 cm/sec2 Ao V2 max: 153.1 cm/sec MV max P.9 mmHg Ao max P.4 mmHg MV V2 mean: 55.8 cm/sec Ao V2 mean: 118.0 cm/sec MV mean P.6 mmHg Ao mean P.9 mmHg MV V2 VTI: 37.7 cm Ao V2 VTI: 34.6 cm AV (velocity ratio): 0.92 LV V1 max: 145.4 cm/sec PA V2 max: 109.1 cm/sec TR max osmani: 256.2 cm/sec LV V1 max P.5 mmHg PA V2 mean: 65.1 cm/sec TR max P.3 mmHg LV V1 mean P.2 mmHg LV V1 mean: 91.7 cm/sec LV V1 VTI: 31.8 cm ECHO/Echo Complete W/ Contrast Interpretation Summary Normal LV size. The estimated ejection fraction is 80 %. Mid cavitary dynamic gradient 32 mmHg increasing to 42 mmHg with Valsalva mm/Hg . Moderate concentric left ventricular hypertrophy. Stage 3 diastolic dysfunction. The left atrium is mildly enlarged. Contrast injection was performed. Compared to previous study, the left ventricu lar systolic function is the same.. Ordering Physician: Lauren Haynes Referring Physician: Guilherme Ellison M.D. Performed By: Sofia Prado RCS
== END | disposition home or self-care (01) ==
PROVIDERS: PCP Family Medicine; Visit Provider Physician Assistant Medical
DX: I42.2 Other hypertrophic cardiomyopathy (principal)
CPT/HCPCS: 93306; Q9957; A4216; C8929

== ENCOUNTER → 2022-12-21 | Outpatient (CLI) | payer OTHER, SELFPAY ==
--- NOTE | 2022-12-21 12:54 | ECHOLC_ITS ---
Reason For Study: HCOM Procedure This was a limited 2D transthoracic echocardiogram. The study was technically difficult. Contrast injection was performed. Exam performed in department. Left Ventricle Normal LV size. Moderate concentric left ventricular hypertrophy. Left ventricular systolic function is normal. The estimated ejection fraction is 70 %. Mid cavitary dynamic gradient 17 mm at rest to 35 mm with Valsalva. mm/Hg. No regional wall motion abnormalities noted. Right Ventricle Normal RV size. ICD or pacer leads identified within the right ventricle. Normal systolic function. Atria The left atrium is mildly enlarged. Normal right atrium. Great Vessels Normal aortic root. The pulmonary artery is normal size. Normal inferior vena cava. Pericardium/Pleural No pericardial effusion. Medication 22 gauge I.V. with prn adaptor inserted into right arm. Diluted definity 1.5ml given slow IV push to enhance endocardial definition. MMode/2D Measurements & Calculations LVIDd: 5.1 cm IVSd: 1.2 cm LAV(MOD-sp4): 83.0 ml LVIDs: 2.7 cm LVPWd: 1.2 cm FS: 47.1 % SV(MOD-sp4): 91.8 ml LVAd ap4: 40.4 cm2 LVAd ap2: 24.4 cm2 LVLd ap4: 10.1 cm LVLd ap2: 6.4 cm EDV(MOD-sp4): 131.0 ml EDV(MOD-sp2): 75.5 ml EDV(sp4-el): 136.6 ml EDV(sp2-el): 78.8 ml LVAs ap4: 19.4 cm2 LVLs ap4: 8.3 cm ESV(MOD-sp4): 39.2 ml ESV(sp4-el): 38.4 ml EF(MOD-sp4): 70.1 % EF(sp4-el): 71.9 % SV(sp4-el): 98.2 ml LA A4 area: 26.3 cm2 LA dimension(2D): 4.3 cm RA A4 area: 19.7 cm2 ECHO/Echo Limited w/Contrast Interpretation Summary Normal LV size. Left ventricular systolic function is normal. The estimated ejection fraction is 70 %. Mid cavitary dynamic gradient 17 mm at rest to 35 mm with Valsalva. mm/Hg. Moderate concentric left ventricular hypertrophy. Compared to the previous the extent of the gradient is less. Contrast injection was performed. Ordering Physician: Lauren Haynes Referring Physician: Lauren Haynes Performed By: Sofia Prado RCS
== END | disposition home or self-care (01) ==
PROVIDERS: PCP Family Medicine; Referring Provider Physician Assistant Medical; Visit Provider Physician Assistant Medical
DX: I50.9 Heart failure, unspecified (principal); I42.2 Other hypertrophic cardiomyopathy
CPT/HCPCS: 93308; Q9957; A4216; C8924

== ENCOUNTER → 2023-10-10 | Outpatient (CLI) | payer OTHER, SELFPAY ==
[2023-10-10 09:16] LABS: Cholesterol 117 mg/dL (200); High Density Lipoprotein 47 mg/dL; PSA,Total - Annual Screen 0.88 ng/mL (0.00-4.00); Triglycerides 58 mg/dL; Very Low Density Lipoprotein 12 mg/dL (5-40)
== END | disposition home or self-care (01) ==
PROVIDERS: PCP Family Medicine; Visit Provider Family Medicine
DX: Z13.0 Encounter for screening for diseases of the blood and blood-forming organs and certain disorders involving the immune mechanism (principal); E78.1 Pure hyperglyceridemia
CPT/HCPCS: 36415; 80061; 84153; G0103

== ENCOUNTER → 2023-10-12 | Outpatient (CLI) | payer OTHER, SELFPAY ==
[2023-10-12 08:20] LABS: Absolute Lymphocyte Count 3.27 X10^3/uL (0.83-4.51); Absolute Neutrophil Count 4.5 X10^3/uL (2.0-7.7); Basophil# 0.07 X10^3/uL; Basophil% 0.8 % (0-1); Eosinophil# 0.21 X10^3/uL; Eosinophils% 2.4 % (0-5); Hematocrit 45.7 % (40-54); Hemoglobin 15.1 g/dL (13.0-16.5); Lymphocyte # 3.27 X10^3/ul (0.83-4.51); Lymphocyte % 37.9 % (19-41); Mean Corpuscular Hgb 27.9 pg (27.0-32.0); Mean Corpuscular Volume 84.5 fL (80-94); Mean Platelet Vol. 10.8 fl (6.2-12.0); Monocyte# 0.56 X10^3/uL; Monocyte% 6.5 % (0-10); NRBC Flagged by Analyzer 0 % (0-5); Neutrophil # 4.49 X10^3/uL (2.7-7.7); Neutrophil % 52.1 % (47-70); Platelet Count 184 K/mm3 (150-450); RBC Distribution Width CV 14.7 % (11.6-14.6); RBC Distribution Width SD 44.6 fl (35.1-43.9); Red Blood Count 5.41 M/mm3 (4.6-6.2); White Blood Count 8.6 K/mm3 (4.4-11.0)
== END | disposition home or self-care (01) ==
LOC: LAB 08:01
PROVIDERS: PCP Family Medicine; Visit Provider Family Medicine
DX: Z13.0 Encounter for screening for diseases of the blood and blood-forming organs and certain disorders involving the immune mechanism (principal); E78.1 Pure hyperglyceridemia
CPT/HCPCS: 85025

== ENCOUNTER → 2023-12-29 | Outpatient (CLI) | payer OTHER, SELFPAY ==
--- NOTE | 2023-12-29 07:54 | ECHOCS_ITS ---
Reason For Study: Other Hypertrophic Cardiomyopathy Procedure This was a 2D Doppler, Color Flow transthoracic echocardiogram. Contrast injection was performed. Exam performed in department. Left Ventricle Normal LV size. Moderate concentric left ventricular hypertrophy. The estimated ejection fraction is 70 %. Resting LV gradient 34 mmHg. Valsalva LV gradient 42 mmHg. No regional wall motion abnormalities noted. Right Ventricle Normal RV size. ICD or pacer leads identified within the right ventricle. Normal systolic function. Atria Normal left atrium. Normal right atrium. Mitral Valve Normal mitral valve. Tricuspid Valve Normal tricuspid valve. Mild tricuspid valve insufficiency. Pulmonary artery systolic pressure is 26 mmHg. Aortic Valve Trisinus/trileaflet aortic valve. Pulmonic Valve Normal pulmonic valve. Great Vessels Mildly dilated aortic root. The pulmonary artery is normal size. Inferior vena cava collapse with respiration. Pericardium/Pleural No pericardial effusion. Medication 22 gauge I.V. with prn adaptor inserted into right arm. Diluted definity 2.5ml given slow IV push to enhance endocardial definition. MMode/2D Measurements & Calculations LVIDd: 4.9 cm IVSd: 1.7 cm Ao root diam: 3.9 cm LVIDs: 3.7 cm LVPWd: 1.5 cm RVDd: 4.1 cm FS: 24.6 % LAV(MOD-bp): 77.8 ml LVAd ap4: 40.4 cm2 SV(MOD-sp4): 110.1 ml LAV(MOD-bp) Indexed: 33.5 ml/m2 LVLd ap4: 8.8 cm LAV(MOD-sp2): 94.0 ml EDV(MOD-sp4): 150.8 ml LAV(MOD-sp4): 61.8 ml EDV(sp4-el): 157.3 ml LVAs ap4: 20.0 cm2 LVLs ap4: 8.2 cm ESV(MOD-sp4): 40.7 ml ESV(sp4-el): 41.7 ml EF(MOD-sp4): 73.0 % EF(sp4-el): 73.5 % SV(sp4-el): 115.6 ml LA A4 area: 21.6 cm2 LA dimension(2D): 4.3 cm RA A4 area: 16.1 cm2 TAPSE: 2.0 cm Time Measurements MV dec time: 0.26 sec Doppler Measurements & Calculations MV E max osmani: 75.7 cm/sec Lat Peak E' Osmani: 7.9 cm/sec Med Peak E' Osmani: 4.5 cm/sec MV A max osmani: 73.1 cm/sec E/E' lat: 9.5 E/E' med: 16.8 MV E/A: 1.0 MV V2 max: 85.7 cm/sec MV P1/2t max osmani: 88.8 cm/sec Ao V2 max: 171.0 cm/sec MV max P.9 mmHg MV P1/2t: 85.4 msec Ao max P.7 mmHg MV V2 mean: 46.0 cm/sec MV dec slope: 304.4 cm/sec2 Ao V2 mean: 120.6 cm/sec MV mean P.0 mmHg MVA(P1/2t): 2.6 cm2 Ao mean P.7 mmHg MV V2 VTI: 34.3 cm Ao V2 VTI: 35.8 cm AV (velocity ratio): 0.96 LV V1 max: 146.3 cm/sec PA V2 max: 88.8 cm/sec TR max osmani: 241.2 cm/sec LV V1 max P.6 mmHg PA max PG (full): 1.2 mmHg TR max P.3 mmHg LV V1 mean P.6 mmHg LV V1 mean: 98.9 cm/sec LV V1 VTI: 34.3 cm ECHO/Echo Complete W/ Contrast Interpretation Summary Normal LV size. Moderate concentric left ventricular hypertrophy. The estimated ejection fraction is 70 %. Resting LV gradient 34 mmHg. Mildly dilated aortic root. Contrast injection was performed. Ordering Physician: Lauren Haynes Referring Physician: Lauren Haynes Performed By: West Rojas RCS
== END | disposition home or self-care (01) ==
PROVIDERS: PCP Family Medicine; Referring Provider Physician Assistant Medical; Visit Provider Physician Assistant Medical
DX: I42.2 Other hypertrophic cardiomyopathy (principal)
CPT/HCPCS: 93306; Q9957; A4216; C8929

== ENCOUNTER → 2025-03-05 | Outpatient (CLI) | payer OTHER, SELFPAY ==
--- NOTE | 2025-03-05 07:56 | ECHOCS_ITS ---
Reason For Study Reason For Study: HCM Procedure This was a 2D Doppler, Color Flow transthoracic echocardiogram. Contrast injection was performed. Exam performed in department. Left Ventricle Normal LV size. Moderate concentric left ventricular hypertrophy. The left ventricular ejection fraction is 65 %. Resting LV gradient 24 mmHg. Valsalva LV gradient 42 mmHg. No regional wall motion abnormalities noted. Right Ventricle Normal RV size. ICD or pacer leads identified within the right ventricle. Normal systolic function. Atria Normal left atrium. Normal right atrium. Mitral Valve Mild-Moderate (1-2+) eccentric mitral valve insufficiency. Tricuspid Valve Normal tricuspid valve. Mild (1+) tricuspid valve insufficiency. Pulmonary artery systolic pressure is 33 mmHg. Aortic Valve Trisinus/trileaflet aortic valve. Mild (1+) aortic valve insufficiency. Pulmonic Valve Normal pulmonic valve. Mild (1+) pulmonic valve insufficiency. Great Vessels Mild to moderately dilated aortic root. The pulmonary artery is normal size. Inferior vena cava collapse with respiration. Pericardium/Pleural No pericardial effusion. Medication 22 gauge I.V. with prn adaptor inserted into right arm. Diluted definity 2ml given slow IV push to enhance endocardial definition. MMode/2D Measurements & Calculations LVIDd: 4.8 cm IVSd: 1.7 cm Ao root diam: 4.1 cm LVIDs: 2.4 cm LVPWd: 1.4 cm RVDd: 4.2 cm FS: 49.8 % asc Aorta Diam: 4.0 cm LAV(MOD-bp): 71.8 ml LVAd ap4: 43.6 cm2 LAV(MOD-bp) Indexed: 31.8 ml/m2 LVLd ap4: 9.5 cm LAV(MOD-sp2): 79.1 ml EDV(MOD-sp4): 164.7 ml LAV(MOD-sp4): 63.6 ml EDV(sp4-el): 170.7 ml LVAs ap4: 26.9 cm2 LVLs ap4: 8.2 cm ESV(MOD-sp4): 72.4 ml ESV(sp4-el): 74.8 ml EF(MOD-sp4): 56.0 % EF(sp4-el): 56.2 % LVAd ap2: 42.9 cm2 SV(MOD-sp4): 92.3 ml SV(MOD-sp2): 108.2 ml LVLd ap2: 9.2 cm SI(MOD-sp4): 40.8 ml/m2 SI(MOD-sp2): 47.9 ml/m2 EDV(MOD-sp2): 166.9 ml EDV(sp2-el): 169.1 ml LVAs ap2: 23.8 cm2 LVLs ap2: 8.2 cm ESV(MOD-sp2): 58.7 ml ESV(sp2-el): 58.8 ml EF(MOD-sp2): 64.8 % SV(sp4-el): 96.0 ml Ao sinus diam: 3.[address] [place]: 3.0 cm LA dimension(2D): 4.9 cm LA A4 area: 20.5 cm2 RA A4 area: 15.2 cm2 TAPSE: 1.5 cm Time Measurements MV dec time: 0.30 sec Doppler Measurements & Calculations MV E max osmani: 86.4 cm/sec Lat Peak E' Osmani: 8.5 cm/sec Med Peak E' Osmani: 5.7 cm/sec MV A max osmani: 77.0 cm/sec E/E' lat: 10.2 E/E' med: 15.0 MV E/A: 1.1 MV dec slope: 284.7 cm/sec2 Ao V2 max: 163.4 cm/sec AI max osmani: 370.9 cm/sec Ao max P.7 mmHg AI max P.1 mmHg Ao V2 mean: 129.2 cm/sec AI dec slope: 175.4 cm/sec2 Ao mean P.2 mmHg AI P1/2t: 619.5 msec Ao V2 VTI: 38.7 cm AV (velocity ratio): 0.85 LV V1 max: 137.3 cm/sec PA V2 max: 86.4 cm/sec PI end-d osmani: 178.9 cm/sec LV V1 max P.5 mmHg LV V1 mean P.7 mmHg LV V1 mean: 103.6 cm/sec LV V1 VTI: 32.8 cm TR max osmani: 270.6 cm/sec TR max P.3 mmHg ECHO/Echo Complete W/ Contrast Interpretation Summary Normal LV size. Moderate concentric left ventricular hypertrophy. The left ventricular ejection fraction is 65 %. Valsalva LV gradient 42 mmHg. Resting LV gradient 24 mmHg. Ordering Physician: Lauren Haynes Referring Physician: Lauren Haynes Performed By: Imani Andersen RDCS
== END | disposition home or self-care (01) ==
LOC: CVS 07:54
PROVIDERS: PCP Family Medicine; Referring Provider Physician Assistant Medical; Visit Provider Physician Assistant Medical
DX: I42.2 Other hypertrophic cardiomyopathy (principal)
CPT/HCPCS: 93306; Q9957; A4216; C8929

== ENCOUNTER 2025-03-08 23:31 | Emergency (ER) | payer OTHER, SELFPAY ==
[2025-03-08 23:33] VITALS: BP 140/71; PULSE 62; RESP 16; TEMP 36.6; O2SAT 98; BMI 32.2
--- NOTE | 2025-03-08 23:56 | EKG12_ITS ---
Test Reason : DYSRHYTHMIA Blood Pressure : */* mmHG Vent. Rate : 61 BPM Atrial Rate : 61 BPM P-R Int : 180 ms QRS Dur : 122 ms QT Int : 456 ms P-R-T Axes : 25 -53 98 degrees QTcB Int : 459 ms Normal sinus rhythm Left anterior fascicular block Left ventricular hypertrophy with QRS widening and repolarization abnormality ( R in aVL , Harman product , Romhilt-Crockett ) Abnormal ECG Confirmed by WILL JUAN, KENNY ([id number]), associate entertainment editor PERCY PACKER ([id number]) on 03/11/2025 1:34:17 PM Referred By: Confirmed By: KENNY SOLIS MD
[2025-03-09 00:15] VITALS: BP 118/75; BP 126/71; BP 131/67
[2025-03-09 00:17] LABS: Hematocrit 49.0 % (40-54); Hemoglobin 16.9 g/dL (13.0-16.5); Immature Granulocytes Count 0.030 X10^3/uL (0.0-0.0); Mean Corp Hgb Conc 34.5 g/dL (32-36); Mean Corpuscular Volume 86.0 fL (80-94); Mean Platelet Vol. 11.4 fl (6.2-12.0); NRBC Flagged by Analyzer 0 % (0-5); Platelet Count 189 K/mm3 (150-450); RBC Distribution Width CV 13.4 % (11.6-14.6); RBC Distribution Width SD 41.7 fl (35.1-43.9); Red Blood Count 5.70 M/mm3 (4.6-6.2); White Blood Count 9.8 K/mm3 (4.4-11.0)
[2025-03-09 00:33] LABS: Magnesium 2.2 mg/dL (1.5-2.2)
[2025-03-09 00:37] LABS: Anion Gap 13 (5-15); BUN 17 mg/dL (4-19); BUN/Creat Ratio 16.3 RATIO (10-20); Calcium,Total 8.7 mg/dL (7.6-11.0); Carbon Dioxide 21.2 mmol/L (21.0-32.0); Chloride 104 mmol/L (98-108); Estimated Creatinine Clearance 92.87 ml/min (50-250); Glucose 104 mg/dL (70-99); Potassium 3.9 mmol/L (3.3-5.1)
--- OUTSIDE RECORDS SUMMARY | 2025-03-09 01:06 | XMS RPT_ITS | CCD ---
Author Organization [facility] Care Team Providers Care Business Development Agent Name Role Phone ROSEANN Cedeno, Taylor Guardado Unavailable Unavailable ROSEANN Cedeno, Taylor Guardado Unavailable Unavailable ROSEANN Cedeno, Taylor Guardado Unavailable Unavailable THEODORE ALLISON Attending Unavailable REFERRING, GIFTY WO ID~[id number] Primary Care Unava ilable Laci Eller Unavailable Unavailable Unavailable Dr. Laci Eller Primary Care Provider Dr. Laci Eller Referring Provider JULIO Fisher Attending Provider Dr. Laci Eller Primary Care Provider Dr. Laci Eller Referring Provider JULIO Fisher Attending Provider Dr. Laci Eller Primary Care Provider Dr. Laci Eller Referring Provider [phone] Brian LOPEZ, JOHN-Meño Kimbrough Attending Provider Laci Eller MD Primary Care Provider Dr. Laci Eller Primary Care Provider Dr. Laci Eller Referring Provider Dr. Johann Blunt Attending Provider JULIO Fisher Attending Provider Dr. Garrett Noguera Attending Provider Dr. Laci Eller Primary Care Provider Dr. Laci Eller Referring Provider Alexandrea Cedeno Attending Provider Unavailable JULIO Fisher Attending Provider Dr. Garrett Noguera Attending Provider Laci Eller MD Primary Care Provider RAFITA, LACI SIERRA Primary Care Unavailab le INGRAM, MOUNA Y Referring Unavailable RAFITA, LACI SIERRA Primary Care Unavailab le RAFITA, LACI SIERRA Referring Unavailab le RAFITA, LACI SIERRA Primary Care Unavailab le RAFITA, LACI SIERRA Referring Unavailab le INGRAM, MOUNA Y Referring Unavailable RAFITA, LACI SIERRA Primary Care Unavailab Laci Ambriz MD Primary Care Provider LACI ELLER Attending Unavailab le RAFITA, LACI SIERRA Primary Care Unavailab le RAFITA, LACI SIERRA Attending Unavailab le RAFITA, LACI SIERRA Primary Care Unavailab le RAFITA, LACI SIERRA Attending Unavailab le SELF Referring Unavailable RAFITA, LACI SIERRA Primary Care Unavailab le RAFITA, LACI SIERRA Attending Unavailab le RAFITA, LACI SIERRA Primary Care Unavailab le Rafita Dr. Laci JUAN Primary Care Provider Dr. Laci Eller MD Referring Provider Brian MIDDLEWARE ENGINEER-CKaylan Attending Provider Tal MIDDLEWARE ENGINEER-CSavannah Attending Provider [phone] Dr. Garrett Noguera MD Attending Provider [phone] Alexandrea Cedeno Attending Provider Unavailable Dr. Laci Eller MD Primary Care Provider [phone] Dr. Laci Eller MD Referring Provider Felipe Torres Attending Provider Dr. Laci Eller MD Primary Care Provider Dr. Garrett Noguera MD Attending Provider Dr. Garrett Noguera MD Referring Provider [phone] Dr. Laci Eller MD Referring Provider Rafita, Laci Primary Care Unavailable Surinder Engle Attending Unavailable Rafita, Laci Referring Unavailable Rafita, Laci Primary Care Unavailable Chuckie, Roxobel Referring Unavailable Chuckie, Roxobel Attending Unavailable Rafita, Laci Primary Care Unavailable Chuckie, Garrett Referring Unavailable Chuckie, Garrett Attending Unavailable Rafita, Laci Primary Care Unavailable Chuckie, Roxobel Attending Unavailable Rafita, Laci Referring Unavailable Rafita, Laci Primary Care Unavailable Chuckie, Garrett Attending Unavailable Rafita, Alci Primary Care Unavailable Savannah Parada Attending Unavailable Rafita, Laci Referring Unavailable Rafita, Laci Primary Care Unavailable Alexandrea Cedeno Attending Unavailable Rafita, Laci Referring Unavailable Rafita, Laci Primary Care Unavailable Kaylan Torres NP Attending Unavailable Rafita, Laci Referring Unavailable WilianAlexandrea Attending Unavailable Rafita, Laci Referring Unavailable Rafita, Laci Primary Care Unavailable Lauren Fisher Attending Unavail able Rafita, Laci Referring Unavailable Rafita, Laci Primary Care Unavailable Chuckie, Garrett Referring Unavailable Chuckie, Garrett Attending Unavailable Rafita, Laci Primary Care Unavailable Rafita, Laci Primary Care Unavailable Felipe Torres Attending Unavailable Allergies Allergy Classification Reported Allergen(s) Allergy Type Date of Onset Reaction(s) Facility (3 sources) cefadroxil drug allergy 1 developed a rash [facility] Work Phone: (11 sources) Cefadroxil Drug Allergy 2 Rash [facility] (20 sources) ceFAZolin; Translations: [CEFAZOLIN] Drug Allergy 5 Rash, Itching [facility] (1 source) Cefadroxil Drug Allergy 5 [facility] Repository Medications Current Medications Medication Drug Class(es) Dates Sig (Normalized) Sig (Original) amoxicillin 875 mg / clavulanate 125 mg oral tablet (3 sources) Penicillin-class Antibacterial Start: 11-20-2024 Amoxicillin-Pot Clavulanate 875-125 mg tablet Active 1 {tbl} PO Q12H 14 0 November 20, 2024 12:00am 12 hr dextromethorphan hydrobromide 30 mg / guaiFENesin 600 mg extended release oral tablet (3 sources) Uncompetitive T-dghwwj-R-aspartat e Receptor Antagonist, Sigma-1 Agonist Start: 11-20-2024 Dextromethorphan -Guaifenesin 30-600 mg tablet extended release 12 hr Active 1 {tbl} PO Q12H as needed for cough 14 0 November 20, 2024 12:00am Ibuprofen (18 sources) Nonsteroidal Anti-inflammatory Drug IBUPROFEN ORAL as necessary Active IBUPROFEN ORAL a s necessary 0 Active Comment on above: as necessary tirzepatide (MOUNJARO) 5 mg/0.5 mL pen injector (2 sources) Start: 4 End: 5 inject 5 mg by subcutaneous injection every week tirzepatide (MOUNJARO) 5 mg/0.5 mL pen injector Inject 5 mg subcutaneously one time a week. 2 mL 5 02/27/2024 08/25/2024 Active Completed/Discontinued Medications Medication Drug Class(es) Dates Sig (Normalized) Sig (Original) OXYCODONE-ACETAMINO PHEN (12 sources) Opioid Agonist Start: 03-19-2011 End: 07-16-2011 PERCOCET 5-325 MG TABS one to two tabs four times a day as needed for pain OXYCODONE-ACETAMINOP HEN [id number] Garrett Noguera MD Start: 03-19-2011 PERCOCET 5-325 MG TABS one to two tabs four times a day as needed for pain OXYCODONE-ACETAMINOPHEN [id number] Theodore Mcwilliams MD Start: 12-04-2010 End: 07-16-2011 PERCOCET 5-325 MG TABS one t o two tabs four times a day as needed for pain OXYCODONE-ACETAMINOPHEN [id number] Garrett Noguera MD Start: 12-04-2010 PERCOCET 5-325 MG TABS one to two tabs four times a day as needed for pain OXYCODONE-ACETAMINOPHEN [id number] Theodore Mcwilliams MD amoxicillin 500 mg oral tablet (6 sources) Penicillin-class Antibacterial Start: 07-31-2010 End: 09-29-2010 take 4 tablets by mouth every hour AMOXICILLIN 500 MG TABS 4 tablets by mouth 1 hr prior to procedure AMOXICILLIN [id number] Qing Fournier apixaban 5 mg oral tablet (20 sources) Factor Xa Inhibitor Start: 03-07-2021 End: 08-10-2024 take 1 tablet by mouth twice daily Apixaban (Eliquis) 5 mg tablet Discontinued 5 mg PO TWICE A DAY 60 September 13, 2023 1:19pm August 10, 2024 7:55am Comment on above: Take 5 mg by mouth t wice daily. aspirin 81 mg delayed release oral tablet (20 sources) Platelet Aggregation Inhibitor, Nonsteroidal Anti-inflammatory Drug Start: 06-30-2021 End: 11-23-2022 take 1 tablet by mouth once daily Aspirin (Adult Aspirin Regimen) 81 mg tablet,delayed release (DR/EC) Discontinued 81 mg PO DAILY 1 June 30, 2021 12:00am November 23, 2022 1:45pm Start: 06-05-2020 End: 03-07-2021 take 1 tablet by mouth once daily Aspirin (Adult Aspirin Regimen) 81 mg tablet,delayed release (DR/EC) Discontinued 81 mg PO DAILY June 05, 2020 1:00am March 07, 2021 12:39pm atorvastatin 40 mg oral tablet (20 sources) HMG-CoA Reductase Inhibitor Start: 06-20-2020 End: 06-18-2024 take 1 tablet by mouth at bedtime Atorvastatin 40 mg tablet Discontinued 40 mg PO AT BEDTIME 90 June 24, 2023 12:59pm June 18, 2024 11:44am Comment on above: Take by mouth. Take 40 mg by mouth once daily. cefadroxil 500 mg oral capsule (6 sources) Cephalosporin Antibacterial Start: 12-04-2010 End: 07-16-2011 CEFADROXIL 500 MG CAPS one tab twice a day CEFADROXIL [id number] Garrett Noguera MD clindamycin 300 mg oral capsule (12 sources) Lincosamide Antibacterial Start: 12-06-2010 End: 07-16-2011 CLEOCIN 300 MG CAPS one tab three times a day CLINDAMYCIN HCL [id number] Garrett Noguera MD INTERFERON JUNAID-2B (6 sources) Interferon alpha INTRON A [id number] UNIT/ML SOLN INTERFERON JUNAID-2B [id number] Herman Bearmudez DO End: 07-16-2011 INTRON A [id number] UNIT/ML SO LN INTERFERON JUNAID-2B [id number] Garrett Noguera MD lisinopril 5 mg oral tablet (20 sources) Angiotensin Converting Enzyme Inhibitor Start: 06-20-2020 End: 10-17-2024 take 1 tablet by mouth once daily Lisinopril 5 mg tablet Discontinued 5 mg PO DAILY 90 4 June 18, 2024 11:44am October 17, 2024 12:52pm Comment on above: Take by mouth. Take 5 mg by mouth o nce daily. loratadine 10 mg oral tablet (4 sources) Start: 04-18-1969 loratadine (CLARITIN) 10 mg tablet Take by mouth. 0 04/18/1969 Active Comment on above: Take by mouth. 24 hr metoprolol succinate 100 mg extended release oral tablet (20 sources) beta-Adrenergic Selin Start: 06-24-2020 End: 07-04-2020 take 1 capsule by mouth twice daily Metoprolol Succinate 100 mg capsule,sprinkle,ER 24hr Discontinued 100 mg PO TWICE A DAY June 24, 2020 1:00am July 04, 2020 12:59pm Start: 06-21-2020 End: 06-24-2020 take 1 tablet by mouth twice daily Metoprolol Succinate 25 MG tablet extended release 24 hr Discontinued 25 mg PO TWICE A DAY 60 0 June 21, 2020 1:00am June 24, 2020 12:05pm Start: 11-08-2017 End: 01-26-2019 take 0.5 tablet by mouth every twenty-four hours in the evening Metoprolol Succinate 100 mg tablet extended release 24 hr Discontinued 100 mg PO .COMPLEX 135 November 08, 2017 10:36am October 10, 2018 8:47am 100 mg PO 1 tablet in the am and 0.5 tablet in the pm: MUST BE PAR Brand, [place] Brand, Aralez brand, or Name brand Astra ZenXipLink Start: 08-26-2017 End: 11-08-2017 take 0.5 tablet by mouth once in the evening Metoprolol Succinate 100 mg tablet extended release 24 hr Discontinued 100 mg PO .COMPLEX August 26, 2017 12:00am November 08, 2017 10:36am 100 mg PO 1 tablet in the am and 0.5 tablet in the pm: MUST BE PAR Brand, [place] Brand, Aralez brand, or Name brand Astra ZenXipLink per Dr. Baljinder Forde Start: 12-03-2015 End: 08-01-2024 take 1 tablet by mouth twice daily Metoprolol Succinate 100 mg tablet extended release 24 hr Discontinued 100 mg PO TWICE A DAY 180 3 August 11, 2023 8:05am August 01, 2024 8:01am Start: 07-31-2010 take 1 tablet by marita th in the morning, then take 0.5 tablet by mouth once METOPROLOL SUCCINATE ER 100 MG [id number] One tablet by mouth in am and 1/2 tablet at night (per Dr. Baljinder Forde) METOPROLOL SUCCINATE [id number] Garrett Noguera MD Comment on above: Take one tablet in t he morning and one-half tablet in the evening daily. MULTIPLE VITAMIN (3 sources) Start: 1 take 1 tablet by mouth once daily MULTIVITAMINS TABS One tablet by mouth daily MULTIPLE VITAMIN [id number] Qing Fournier Multivitamin preparation (8 sources) Start: 8 End: 8 take 1 tablet by mouth once daily Multivitamin Discontinued 1 TABLET PO daily October 02, 2017 11:00pm October 04, 2017 8:19am Start: 10-03-2017 End: 10-04-2017 take 1 tablet by mouth once daily Multivitamin Discontinued 1 TABLET PO daily October 03, 2017 12:00am October 04, 2017 9:19am Start: 07-31-2010 multivitamin ( MULTIPLE VITAMIN ESSENTIAL ORAL) Take by mouth. 0 07/31/2010 Active Comment on above: Take by mouth. multivitamin tablet (1 source) End: 022 take 6-9 tablets by mouth once daily multivitamin tablet Take 6-9 tablets by mouth once daily. 0 04/05/2022 Discontinued Comment on above: Take 6-9 tablets by mouth once daily. Multivitamin tablet (5 sources) Start: 018 End: 018 Multivitamin tablet Discontinued 1 {tbl} PO daily October 03, 2017 12:00am October 04, 2017 9:19am naproxen sodium 220 mg oral tablet (6 sources) Nonsteroidal Anti-inflammatory Drug Start: 011 End: 011 ALEVE 220 MG TABS PRN NAPROXEN SODIUM [id number] Theodore Mcwilliams MD pantoprazole 40 mg delayed release oral tablet (11 sources) Proton Pump Inhibitor Start: End: take 1 tablet by mouth once daily Pantoprazole 40 mg tablet,delayed release (DR/EC) Discontinued 40 mg PO DAILY May 11, 2021 1:00am June 09, 2021 3:22pm x 4 weeks ticagrelor 90 mg oral tablet (20 sources) Start: End: take 1 tablet by mouth twice daily Ticagrelor 90 mg tablet Discontinued 90 mg PO TWICE A DAY 180 4 August 05, 2020 9:44am June 30, 2021 5:02pm tirzepatide (MOUNJARO) 2.5 mg/0.5 mL pen injector (9 sources) Start: 024 End: inject 2.5 mg by subcutaneous injection every week tirzepatide (MOUNJARO) 2.5 mg/0.5 mL pen injector Inject 2.5 mg subcutaneously one time a week. 2 mL 1 12/12/2023 02/27/2024 Discontinued Start: 12-12-2023 inject 2.5 mg by sub cutaneous injection every week tirzepatide (MOUNJARO) 2.5 mg/0.5 mL pen injector Inject 2.5 mg subcutaneously one time a week. 2 mL 1 12/12/2023 Active Start: 11-17-2023 End: 12-12-2023 inject 2.5 mg by subcutaneous injection every week tirzepatide (MOUNJARO) 2.5 mg/0.5 mL pen injector Inject 2.5 mg subcutaneously one time a week. 2 mL 1 11/17/2023 12/12/2023 Discontinued Start: 11-17-2023 inject 2.5 mg by sub cutaneous injection every week tirzepatide (MOUNJARO) 2.5 mg/0.5 mL pen injector Inject 2.5 mg subcutaneously one time a week. 2 mL 1 11/17/2023 Active tirzepatide 2.5 mg/0.5 mL (5 mg/mL) subcutaneous compounded injection (1 source) Start: 01-26-2024 End: 02-27-2024 inject 50 [IU] by subcutaneous injection every week tirzepatide 2.5 mg/0.5 mL (5 mg/mL) subcutaneous compounded injection INJECT 50 UNITS SUBCUTANEOUSLY ONCE WEEKLY 01/26/2024 02/27/2024 Discontinued Problems Active Problems Problem Classification Problem Date Documented Date Episodic/Chronic Cancer; other and unspecified primary (20 sources) H/O Malignant melanoma; Translations: [Personal history of malignant melanoma of skin] Onset: 07-16-2011 10-01-2010 Episodic Cardiac dysrhythmias (20 sources) Atrial arrhythmia; Translations: [Paroxysmal atrial fibrillation] Onset: 03-12-2014 03-12-2014 Chronic Comment on above: per 30 day event mon itor 03/05/21 Cardiac dysrhythmias (20 sources) Palpitations; Translations: [Palpitations] Onset: 04-05-2022 04-05-2022 Episodic Conduction disorders (20 sources) Presence of automatic (implantable) cardiac defibrillator; Translations: [Past history of procedure] Onset: 07-24-2014 07-30-2014 Chronic Congestive heart failure; nonhypertensive (6 sources) Symptomatic congestive heart failure; Translations: [Heart failure, unspecified] 11-23-2022 Chronic Coronary atherosclerosis and other heart disease (20 sources) Multi vessel coronary artery disease; Translations: [Coronary atherosclerosis of unspecified type of vessel, [place] or graft] Chronic Disorders of lipid metabolism (20 sources) Hyperlipidemia; Translations: [Other and unspecified hyperlipidemia] Onset: 10-08-2016 Chronic Essential hypertension (20 sources) Hypertensive disorder; Translations: [Unspecified essential hypertension] Onset: 10-08-2016 Resolved: 04-04-2023 Chronic Heart valve disorders (20 sources) Mitral valve disorder; Translations: [Rheumatic mitral valve disease, unspecified] Onset: 07-31-2010 07-31-2010 Chronic Immunizations and screening for infectious disease (7 sources) Patient encounter status; Translations: [Encounter for immunization] Episodic Melanomas of skin (20 sources) Malignant melanoma; Translations: [Melanoma of skin, site unspecified] Onset: 05-06-2010 05-06-2010 Chronic Other diseases of veins and lymphatics (18 sources) Lymphedema; Translations: [Lymphedema, not elsewhere classified] Onset: 11-05-2011 11-05-2011 Chronic Other nutritional; endocrine; and metabolic disorders (3 sources) Body mass index (BMI) 31.0-31.9, adult; Translations: [Body mass index (BMI) 31.0-31.9, adult] Onset: 03-06-2013 03-06-2013 Chronic Other nutritional; endocrine; and metabolic disorders (20 sources) Obesity; Translations: [Obesity, unspecified] Onset: 03-25-2022 04-05-2022 Chronic Other nutritional; endocrine; and metabolic disorders (3 sources) Obesity, unspecified; Translations: [Obesity, unspecified] Chronic Other nutritional; endocrine; and metabolic disorders (2 sources) Obesity caused by energy imbalance; Translations: [Other obesity due to excess calories] 11-21-2023 Chronic Other upper respiratory infections (7 sources) Acute sinusitis; Translations: [Acute sinusitis, unspecified] Onset: 11-20-2024 11-20-2024 Episodic Kisha-; endo-; and myocarditis; cardiomyopathy (20 sources) Cardiomyopathy in diseases classified elsewhere; Translations: [Other hypertrophic cardiomyopathy] Onset: 04-17-2006 Resolved: 09-26-2015 02-29-2012 Chronic Residual codes; unclassified (20 sources) Obstructive sleep apnea syndrome; Translations: [Obstructive sleep apnea (adult) (pediatric)] Onset: 09-08-2021 Chronic Comment on above: AutoPap 5 to 15 cm o f water Residual codes; unclassified (7 sources) Obstructive sleep apnea (adult) (pediatric); Translations: [Obstructive sleep apnea (adult)(pediatric)] Chronic Residual codes; unclassified (11 sources) Other specified postprocedural states; Translations: [Personal history of surgery to heart and great vessels, presenting hazards to health] Onset: 05-08-2021 Episodic Unclassified (1 source) Weight Problem Onset: 11-17-2023 Past or Other Problems Problem Classification Problem Date Documented Date Episodic/Chronic Administrative/social admission (7 sources) Other specified counseling; Translations: [Administrative reason for encounter] Onset: 4 05-05-2023 Episodic Conditions associated with dizziness or vertigo (6 sources) Dizziness and giddiness; Translations: [Dizziness and giddiness] Onset: 1 Resolved: 6 07-31-2010 Episodic Coronary atherosclerosis and other heart disease (1 source) Presence of coronary angioplasty implant and graft; Translations: [History of coronary artery stent placement] Onset: 2 Episodic Melanomas of skin (18 sources) History of melanoma in situ of skin; Translations: [Personal history of melanoma in-situ] Onset: 9 04-05-2022 Episodic Neoplasms of unspecified nature or uncertain behavior (20 sources) Neoplasm of uncertain behavior of skin; Translations: [Neoplasm of uncertain behavior of skin] Onset: 1 11-19-2010 Episodic Other and unspecified benign neoplasm (12 sources) Benign neoplasm of skin of trunk; Translations: [Lipoma of other skin and subcutaneous tissue] Onset: 1 Resolved: 6 10-01-2010 Episodic Other circulatory disease (6 sources) Electrocardiogram abnormal; Translations: [Abnormal electrocardiogram [ECG] [EKG]] Onset: 1 Resolved: 6 09-26-2015 Episodic Other lower respiratory disease (6 sources) Dyspnea; Translations: [Shortness of breath] Onset: 1 Resolved: 6 07-31-2010 Episodic Other screening for suspected conditions (not mental disorders or infectious disease) (4 sources) Encounter for screening for diseases of the blood and blood-forming organs and certain disorders involving the immune mechanism; Translations: [Encounter for screening for malignant neoplasm of prostate] Onset: 3 Episodic Other skin disorders (3 sources) Localized swelling, mass and lump, unspecified; Translations: [Localized swelling, mass and lump, unspecified] Onset: 1 11-19-2010 Episodic Residual codes; unclassified (20 sources) History of radiofrequency ablation operation for arrhythmia; Translations: [Other specified postprocedural states] Onset: 2 05-11-2021 Episodic Comment on above: Successful ablation for atrial fibrillation and homogeneization of scar area inthe spetal area. The patient tolerated the procedure well with no immediatecomplications.05/08/2021 Syncope (6 sources) Syncope and collapse; Translations: [Syncope and collapse] Onset: 1 Resolved: 6 07-31-2010 Episodic Unclassified (3 sources) Family history of ischemic heart disease and other diseases of the circulatory system; Translations: [Family history of ischemic heart disease and other diseases of the circulatory system] 03-12-2014 Episodic Results Test Name Value Interpretation Reference Range Facility Cardiology Visit Reporton Cardiology Visit Report [facility] [address] [place] [address] OFFICE VISIT Date of Service: 02/07/25 MR#: [id number] Acct: [id number] Name: CARLOS BRIONES Rep #: [id number] : 1965 Provider: JULIO Quinn Age/Sex: 59/M Location: [facility] Status: Signed HPI HPI History of Present Illness Details: Carlos Briones is a 59 year-old gentleman who presents here today for a cardiovascular follow-up. He has a history of hypertrophic cardiomyopathy, hypertension and ICD implant. In March of 2020 he was seen in the ER for probable atrial tachyarrhythmia. It appeared to have abated spontaneously. He underwent a cardiac catheterization in 06/2020 demonstrated a high-grade 95% proximal circumflex artery and a moderate-sized vessel. He underwent angioplasty and stenting using a 2.5 x 22 mm drug-eluting stent. He had established with EP for evaluation for atrial fibrillation and tachyarrhythmia. He did undergo an AF RF ablation on May 08, 2021. He did start on a Bipap for his JANNETH. Recent echocardiogram from December 2022 demonstrates an ejection fraction of 70%, mid cavitary dynamic gradient of 17 mmHg at rest with 35 mmHg at Valsalva. Moderate concentric LVH is noted. From a cardiac standpoint, the patient is doing well. He denies any palpitations, chest pain, pressure or heaviness. He denies SOB, Orthopnea, and PND. He does not have bleeding issues; no blood in urine, stool, or nosebleeds. He denies any decrease in energy level, or claudication. He does have myalgias- bilateral lower extremities. He does not have edema, or sudden weight gain. He denies lightheadedness, dizziness, syncopal or near syncopal episodes, and headaches. 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 @ 9:00 [employer] Fusion Developer Required: No Accompanied by: Self Is patient in pain?: No Allergies cefadroxil (From Duricef) Allergy (Severe, Verified 02/07/25 09:31) Rash Medications ???Medication ???Instructions ???Recorded ???Confirmed ???Type atorvastatin 40 mg tablet 40 mg PO QHS #90 tabs 06/18/24 Rx metoprolol succinate 100 mg 100 mg PO BID #180 tabs 08/01/24 1 Rx tablet,extended release 24 hr apixaban 5 mg tablet (Eliquis) 5 mg PO BID #60 tabs 08/10/2401/17 Rx lisinopril 5 mg tablet 5 mg PO DAILY #90 tabs 10/17/24 Rx Ejection fraction %: 75 Have you fallen in the past year?: No Nurse's Note: Pt states that his BP is not normally that high. [facility] Medical History (Updated 02/07/25 @ 09:53 by Lauren KIM, PA) Essential hypertension Paroxysmal atrial fibrillation Myocardial fibrosis determined by magnetic resonance imaging (06/01/14) Atherosclerotic heart disease of [place] coronary artery without angina pectoris Atrial tachycardia Hyperlipidemia Non-sustained ventricular tachycardia Frequent PVCs Obesity Syncope History of melanoma Hypertrophic cardiomyopathy Atrial arrhythmia Surgical History Lipoma History of radiofrequency ablation procedure for cardiac arrhythmia (05/08/21) History of coronary artery stent placement (03/05/21) History of melanoma excision History of left heart catheterization (06/04/05) History of implantable cardiac defibrillator (ICD) (07/24/14) History of arthroscopic knee surgery History of shoulder surgery Family History Father CAD (coronary artery disease) Hx of CABG Myocardial infarction, Onset Age: 41 Uncle CAD (coronary artery disease) Myocardial infarction, Onset Age: 40 Social History Smoking Status: Never smoker alcohol intake: current details: Rare substance use type: does not use ROS Const Const: Negative for fatigue, weakness or headache(s) Eyes Eyes: Negative for change in vision ENT ENT: Negative for headache(s), dizziness, Nosebleed/epistaxis or balance problems Cardio Chest Pain: No Palpitations: No Edema: None Resp Respiratory: Negative for SOB with activity GI GI: Negative nausea, vomiting, heartburn or bright, red blood in stools : Negative for hematuria Musc Musc: Negative for balance problems Neuro Neuro: Negative for dizziness, lightheadedness, syncope, headache(s) or weakness Endo Endo: Negative for fatigue Cardiology Exam Con (more content not included)... Normal [facility] Pacemaker Checkon 02-07-2025 Pacemaker Check [facility] [address] [place] [address]. [address] [place] [address] Pacemaker Check Date of Service: 02/07/251714 MR#: [id number] Acct: [id number] Name: CARLOS BRIONES Rep #: [id number] : 1965 From: Alexandrea Cedeno Age/Sex: 59/M Location: [facility] [place] Status: Signed Billing Codes ICD Device Billin ICD Dev Prog Eval, Single Assessment and Plan Assessment and Plan (1) History of implantable cardiac defibrillator (ICD): Status: Chronic (2) Hypertrophic cardiomyopathy: Status: Chronic (3) History of radiofrequency ablation procedure for cardiac arrhythmia: Status: Acute Comment: Successful ablation for atrial fibrillation and homogeneization of scar area in the spetal area. The patient tolerated the procedure well with no immediate complications.05/08/2021 10/23/25 1716 Date Alexandrea Chavez Signature: Date (if applicable) CC: Normal [facility] Office Visit Reporton 2024 Office Visit Report [facility] [address] [place] [address] OFFICE VISIT Date of Service: 11/20/24 MR#: [id number] Acct: [id number] Patient: CARLOS BRIONES Rep #: [id number] : 1965 Provider: JULIO Oliveros Age/Sex: 59/M [place] [facility] [place]: Signed Intake Vital Signs 08/02/24 08:33 Height 1.83 m Weight: 97.522 kg BMI 29.1 BP 132/76 H Blood Pressure Location Rt brachial Position Sitting Respiration 18 Pulse 51 L Pulse Source Monitor Pulse Oximetry (%) 94 Oxygen Delivery Method room air Intake Visit Reasons: Cough Chief Complaint: sinus pressure Allergies cefadroxil (From Duricef) Allergy (Severe, Verified 08/02/24 08:52) Rash [facility] Medical History Paroxysmal atrial fibrillation Myocardial fibrosis determined by magnetic resonance imaging (06/01/14) Atherosclerotic heart disease of [place] coronary artery without angina pectoris Atrial tachycardia Hyperlipidemia Non-sustained ventricular tachycardia Frequent PVCs Obesity Syncope History of melanoma Hypertrophic cardiomyopathy Atrial arrhythmia Surgical History Lipoma History of radiofrequency ablation procedure for cardiac arrhythmia (05/08/21) History of coronary artery stent placement (06/20/20) History of melanoma excision History of left heart catheterization (06/04/05) History of implantable cardiac defibrillator (ICD) (07/24/14) History of arthroscopic knee surgery History of shoulder surgery Family History Father CAD (coronary artery disease) Hx of CABG Myocardial infarction, Onset Age: 41 Uncle CAD (coronary artery disease) Myocardial infarction, Onset Age: 40 Social History Smoking Status: Never smoker alcohol intake: current details: Rare substance use type: does not use HPI HPI Chief Complaint: sinus pressure Details: CARLOS BRIONES, is a 59 M who presents to virtual visit today for sinus pressure. Pt started to feel ill on . He has increased frontal and maxillary pressure. After this he started to have fevers noting a temperature up to 102.8F at home. This am his temp was 99.6F. He has chills and body aches along with that. He also has a cough that is productive of mucus. He has no SOB. He has no runny nose, ear ache, or sore throat. He has post nasal drainage. He is taking motrin prn for aches and fever. ROS Const Constitutional: Positive for body ache, chills, fatigue and fever(s) ENT ENT: Positive for sinus pressure and sinus pain; No ear or mastoid pain, nasal congestion or sore throat Resp Respiratory: Positive for cough Cough: Yes productive; No shortness of breath or wheezing Endo Endocrine: Positive for fatigue Aller/Imm Allergy/Immunologic: No wheezing Exam Const General: cooperative, healthy appearing, comfortable, no acute distress, well developed and well groomed Nutritional Appearance: average body habitus and well nourished Orientation: alert, awake and oriented x3 HENMT Head: normocephalic and atraumatic Face and sinus: no sinus tenderness Resp Effort Inspection: normal respiratory effort, able to speak in complete sentences, symmetric chest movement and no cough Coding Level of Care Code Off vis,est,level 3 Diagnoses Acute sinusitis J01.90 Assessment and Plan Assessment and Plan (1) Acute sinusitis: Status: Acute Plan: Approx 6 day hx of sinus pressure, post nasal drainage, productive cough without sob, fevers up to 102.8F, chills, body ache. NO SOB. At this time his presentation is c/w acute sinusitis, and he will be placed on amox/clav (pt has allergy to duricef however notes that he has had amox without any issues in the past), and mucinex prn cough/congestion. I have stressed that if he develops worsening symptoms especially SOB then he will need seen in person for a more thorough evaluation. pmhx CHF, CAD, AICD in place, Afib, JANNETH, HLD complicating the above as comorbidity. Time spent on virtual visit 10 minutes. Disclaimer: This visit was performed virtually via live audio and video at the request of the patient. As such the physical exam and testing is limited by what is able to be seen through the patient's camera and lighting which may vary in quality, and limited by what the patient is able to perform via clinician instruction. If there is no significant improvement or new complications, the patient should follow up [id number] with a clinician of the appropriate level of care. Medications: New amoxicillin-pot clavulanate 875-125 mg 1 TAB PO Q12H 14 tabs 0RF dextromethorphan-guaifenes in 30-600 mg 1 TAB P (more content not included)... Normal [facility] Pacemaker Checkon 11-05-2024 Pacemaker Check [facility] [address] [place] [address] Pacemaker Check Date of Service: 11/05/24 1640 MR#: [id number] Acct: [id number] Name: BRIONESCARLOS NELSON Rep #: [id number] : 1965 From: Alexandrea Cedeno Age/Sex: 59/M Location: [facility] [place] Status: Signed Assessment and Plan Assessment and Plan (1) History of radiofrequency ablation procedure for cardiac arrhythmia: Status: Acute Comment: Successful ablation for atrial fibrillation and homogeneization of scar area in the spetal area. The patient tolerated the procedure well with no immediate complications.05/08/2021 (2) Paroxysmal atrial fibrillation: Status: Acute Comment: per 30 day event monitor 03/05/21 (3) History of implantable cardiac defibrillator (ICD): Status: Chronic (4) Hypertrophic cardiomyopathy: Status: Chronic 11/05/24 1644 Date Alexandrea Chavez Signature: Date (if applicable) CC: Normal [facility] Cardiology Visit Reporton Cardiology Visit Report [facility] [address] [place] [address] OFFICE VISIT Date of Service: 08/02/24 MR#: [id number] Acct: [id number] Name: CARLOS BRIONES Rep #: [id number] : 1965 Provider: DEUCE connors Age/Sex: 59/M Location: [facility] [place] Status: Signed HPI HPI History of Present Illness Details: Carlos Briones is a 59 year-old gentleman who presents here today for a cardiovascular follow-up. He has a history of hypertrophic cardiomyopathy, hypertension and ICD implant. In March of 2020 he was seen in the ER for probable atrial tachyarrhythmia. It appeared to have abated spontaneously. He underwent a cardiac catheterization in 06/2020 demonstrated a high-grade 95% proximal circumflex artery and a moderate-sized vessel. He underwent angioplasty and stenting using a 2.5 x 22 mm drug-eluting stent. He had established with EP for evaluation for atrial fibrillation and tachyarrhythmia. He did undergo an AF RF ablation on May 08, 2021. He did start on a Bipap for his JANNETH. Recent echocardiogram from December 2022 demonstrates an ejection fraction of 70%, mid cavitary dynamic gradient of 17 mmHg at rest with 35 mmHg at Valsalva. Moderate concentric LVH is noted. From a cardiac standpoint, the patient is doing well. He denies any palpitations, chest pain, pressure or heaviness. He denies SOB, Orthopnea, and PND. He does not have bleeding issues; no blood in urine, stool, or nosebleeds. He denies any decrease in energy level, or claudication. He does have myalgias- bilateral lower extremities. He does not have edema, or sudden weight gain. He denies lightheadedness, dizziness, syncopal or near syncopal episodes, and headaches. Intake Vital Signs 01/03/24 14:24 07/19/24 07:48 08/02/24 08:33 Height 6 ft 6 ft 6 ft Weight: 215 lb BMI 29.1 BP 132/76 H Blood Pressure Location Rt brachial Position Sitting Respiration 18 Pulse 51 L Pulse Source Monitor Pulse Oximetry (%) 94 Oxygen Delivery Method room air Intake Visit Reasons: 6 M FU/SR @ 8:30 Oracle Fusion Developer Required: No Accompanied by: Self Is patient in pain?: No Allergies cefadroxil (From Duricef) Allergy (Severe, Verified 08/02/24 08:52) Rash Medications ???Medication ???Instructions ???Recorded ???Confirmed ???Type apixaban 5 mg tablet (Eliquis) 5 mg PO BID #60 tabs 09/13/2307/17 Rx atorvastatin 40 mg tablet 40 mg PO QHS #90 tabs 06/18/24 Rx lisinopril 5 mg tablet 5 mg PO DAILY #90 tabs 06/18/24 Rx metoprolol succinate 100 mg 100 mg PO BID #180 tabs 08/01/24 0 08/02/24 Rx tablet,extended release 24 hr Have you fallen in the past year?: No PFSH Medical History Paroxysmal atrial fibrillation Myocardial fibrosis determined by magnetic resonance imaging (06/01/14) Atherosclerotic heart disease of [place] coronary artery without angina pectoris Atrial tachycardia Hyperlipidemia Non-sustained ventricular tachycardia Frequent PVCs Obesity Syncope History of melanoma Hypertrophic cardiomyopathy Atrial arrhythmia Surgical History Lipoma History of radiofrequency ablation procedure for cardiac arrhythmia (05/08/21) History of coronary artery stent placement (06/20/20) History of melanoma excision History of left heart catheterization (06/04/05) History of implantable cardiac defibrillator (ICD) (07/24/14) History of arthroscopic knee surgery History of shoulder surgery Family History Father CAD (coronary artery disease) Hx of CABG Myocardial infarction, Onset Age: 41 Uncle CAD (coronary artery disease) Myocardial infarction, Onset Age: 40 Social History Smoking Status: Never smoker alcohol intake: current details: Rare substance use type: does not use ROS Const Const: Negative for fatigue, weakness, fever(s), headache(s), chills, frequent falls, weight gain or weight loss Eyes Eyes: Negative for blind spots, loss of peripheral vision, transient loss of vision, blurry vision, change in vision, double vision, floaters or tunnel vision ENT ENT: Negative for headache(s), dizziness, Nosebleed/epistaxis, balance problems or neck pain Cardio Chest Pain: No Palpitations: No Edema: None Muscle aches with walking: None Resp Respiratory: Negative for SOB with activity, SOB at rest or SOB orthopnea SOB lying down GI GI: Negative nausea, vomiting, heartburn, bloating, vomiting blood/hematemesis, bright, red blood in stools or black,tarry stools Musc Musc: Positive for muscle aches/ myalgia; Negative for muscle w (more content not included)... Normal [facility] Pacemaker Checkon 08-02-2024 Pacemaker Check [facility] [address] [place] [address] Pacemaker Check Date of Service: 08/02/24 1016 MR#: [id number] Acct: [id number] Name: CARLOS BRIONES Rep #: [id number] : 1965 From: Alexandrea Cedeno Age/Sex: 59/M Location: [facility] [place] Status: Signed Billing Codes ICD Device Billin ICD Dev Prog Eval, Single Assessment and Plan Assessment and Plan (1) Paroxysmal atrial fibrillation: Status: Acute Comment: per 30 day event monitor 03/05/21 (2) History of implantable cardiac defibrillator (ICD): Status: Chronic (3) Hypertrophic cardiomyopathy: Status: Chronic (4) Non-sustained ventricular tachycardia: Status: Chronic 08/02/24 1017 Date Alexandrea Robersonignuriah Signature: Date (if applicable) CC: Normal [facility] Pulmonary Visit Reporton Pulmonary Visit Report [facility] [address] [place] [address] OFFICE VISIT Date of Service: 07/19/24 MR#: [id number] Acct: [id number] Name: CARLOS BRIONES Rep #: [id number] : 1965 Provider: DEUCE Torres Age/Sex: 59/M Location: [facility] [place] Status: Signed Assessment and Plan Assessment and Plan (1) JANNETH (obstructive sleep apnea): Status: Chronic Comment: AutoPap 5 to 15 cm of water Plan: He is using and benefiting from Pap therapy. No indication for titration study at this time. Contact the office for any new or worsening symptoms in the meantime. Follow-up in 1 year. (2) Obesity: Status: Chronic Qualifiers: Obesity type: due to excess calories Obesity classification: adult class 1 (BMI 30 - 34.9) Serious obesity comorbidity presence: with serious comorbidity Body mass index: BMI 30.0-30.9 Qualified Code(s): E66.811 - Obesity, class 1; E66.09 - Other obesity due to excess calories; Z68.30 - Body mass index [BMI] 30.0-30.9, adult Plan: Improving. Continue to encourage weight loss. Plan Details Follow Up: 1 Year HPI 1 Y FU Chief Complaint: Routine follow-up HPI Comments Details: This patient presents to the office today for annual follow-up of his obstructive sleep apnea. He is ambulatory and currently on room air. He has not recently been seen in the ED or urgent care for any respiratory illness. He has not required any antibiotics or prednisone for any breathing problems. He denies any difficulty with shortness of breath. He denies any wheezing, chest tightness, chest pain or palpitations. He also denies any fever, chills or body aches. He has not had any cough, sputum production or hemoptysis. He wakes up feeling rested and refreshed. He does admit to some restlessness when sleeping, however not problematic. He is not requiring naps. He does not nod off to sleep unintentionally. He does not have difficulty with dry mouth or morning headaches. He is not having problems with mask leak. He is not having excessive nocturia. Compliance report for the past 30 days shows 97 % compliance with an average use of 6 hours and 57 minutes per night. Current setting is 5 to 15 cm of water with pressures being utilized at 6.3-9.9 cm of water. Residual AHI of 3.2 events per hour. Leaks do not appear to be an issue. Intake Vital Signs 07/14/23 07:27 01/03/24 14:24 07/19/24 07:48 Height 6 ft 6 ft 6 ft Weight: 224 lb BMI 30.4 BP 120/75 Blood Pressure Location Rt brachial Position Sitting Respiration 18 Pulse 58 L Pulse Source Monitor Temp 97.4 F L Temperature Source Temporal Artery Pulse Oximetry (%) 95 Oxygen Delivery Method room air Intake Visit Reasons: 1 Y FU Chief Complaint: Annual FU JANNETH Oracle Fusion Developer Required: No DME Vendor: Emmanuel Accompanied by: Self Allergies cefadroxil (From [employer]) Allergy (Severe, Verified 07/19/24 07:55) Rash Medications ???Medication ???Instructions ???Recorded ???Confirmed ???Type metoprolol succinate 100 mg 100 mg PO BID #180 tabs 08/11/23 0 07/19/24 Rx tablet,extended release 24 hr apixaban 5 mg tablet (Eliquis) 5 mg PO BID #60 tabs 09/13/23/07/10 Rx atorvastatin 40 mg tablet 40 mg PO QHS #90 tabs 06/18/2407/10 Rx lisinopril 5 mg tablet 5 mg PO DAILY #90 tabs 06/18/24 Rx PFSH Medical History Paroxysmal atrial fibrillation Myocardial fibrosis determined by magnetic resonance imaging (06/01/14) Atherosclerotic heart disease of [place] coronary artery without angina pectoris Atrial tachycardia Hyperlipidemia Non-sustained ventricular tachycardia Frequent PVCs Obesity Syncope History of melanoma Hypertrophic cardiomyopathy Atrial arrhythmia Surgical History Lipoma History of radiofrequency ablation procedure for cardiac arrhythmia (05/08/21) History of coronary artery stent placement (06/20/20) History of melanoma excision History of left heart catheterization (06/04/05) History of implantable cardiac defibrillator (ICD) (07/24/14) History of arthroscopic knee surgery History of shoulder surgery Family History Father CAD (coronary artery disease) Hx of CABG Myocardial infarction, Onset Age: 41 Uncle CAD (coronary artery disease) Myocardial infarction, Onset Age: 40 Social History Smoking Status: Never smoker alcohol intake: current details: Rare substance use type: does not use Review of Systems Resp Respiratory: Yes as per HPI Exam Const Constitutional: Positive conversant, co (more content not included)... Normal [facility] Urgent Care Visit Reporton 1 06-10-2023 Urgent Care Visit Report [facility] [address], [address] [place] [id number] OFFICE VISIT Date of Service: 04/09/24 MR#: [id number] Acct: [id number] Name: CARLOS BRIONES Rep #: [id number] : 1965 Provider: JULIO Hunter Age/Sex: 59/M Location: [facility] [place] Status: Signed Intake Vital Signs 01/03/24 14:24 Height 6 ft Weight: 243 lb BMI 32.9 BP 131/75 H Blood Pressure Location Rt brachial Position Sitting Respiration 18 Pulse 58 L Pulse Source Monitor Pulse Oximetry (%) 96 Oxygen Delivery Method room air Intake Visit Reasons: DOT 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 Chief Complaint: Annual FU JANNETH Allergies cefadroxil (From [facility] Allergy (Severe, Verified 04/09/24 08:03) Rash Medications ???Medication ???Instructions ???Recorded ???Confirmed ???Type atorvastatin 40 mg tablet 40 mg PO QHS #90 tabs 06/24/23 04/09/24 Rx lisinopril 5 mg tablet 5 mg PO DAILY #90 tabs 03/08/24 12/23/24 Rx metoprolol succinate 100 mg 100 mg PO BID #180 tabs 08/11/23 04/09/24 Rx tablet,extended release 24 hr apixaban 5 mg tablet (Eliquis) 5 mg PO BID #60 tabs 09/13/23 04/09/24 Rx Nurse's Note: [facility] Medical History Paroxysmal atrial fibrillation Myocardial fibrosis determined by magnetic resonance imaging (06/01/14) Atherosclerotic heart disease of [place] coronary artery without angina pectoris Atrial tachycardia Hyperlipidemia Non-sustained ventricular tachycardia Frequent PVCs Obesity Syncope History of melanoma Hypertrophic cardiomyopathy Atrial arrhythmia Surgical History Lipoma History of radiofrequency ablation procedure for cardiac arrhythmia (05/08/21) History of coronary artery stent placement (06/20/20) History of melanoma excision History of left heart catheterization (06/04/05) History of implantable cardiac defibrillator (ICD) (07/24/14) History of arthroscopic knee surgery History of shoulder surgery Family History Father CAD (coronary artery disease) Hx of CABG Myocardial infarction, Onset Age: 41 Uncle CAD (coronary artery disease) Myocardial infarction, Onset Age: 40 Social History Smoking Status: Never smoker alcohol intake: current details: Rare substance use type: does not use HPI HPI Chief Complaint: Annual FU JANNETH Details: CARLOS BRIONES, is a 59 M who presents to the office today for Office Procedures Physical Exam Coding PE Coding DOT PE: Yes Coding Level of Care Code No Charge Diagnoses Encounter for examination required by Department of Transportation (DOT) Z02.89 Assessment and Plan Assessment and Plan (1) Encounter for examination required by Department of Transportation (DOT): Status: Acute 04/09/24 0832 Date Surinder Chavez Signature: Date (if applicable) CC: Normal [facility] CNOVon 02-27-2024 CNOV Office Visit ([facility] ) -- CARLOS BRIONES ([id number]) 1965 M Date Time Provider Department 02/27/24 3:50 PM LACI ELLER During your visit today, we recorded the following information about you: Temperature Pulse Respiration Blood pressure 97.2 degrees 64/minute 18/minute 130/80 Weight Height 109.3 kg 1.829 m Elena Escobar MA 02/27/2024 3:41 PM Signed Pt is here today for his 3 month follow up. Pt would like to increase the dose of tirzepatide to the compounding pharmacy. Laci Eller MD 03/04/2024 5:20 PM Signed Subjective Carlosharshad Briones is a 58 year old male. Neyda presents today for follow-up for his obesity. He was placed on Mounjaro 2.5 mg. He is tolerating this well. He has lost 6 pounds in 1 month. Review of Systems Constitutional: Negative. HENT: Negative. Eyes: Negative. Respiratory: Negative. Cardiovascular: Negative. Gastrointestinal: Negative. Endocrine: Negative. Genitourinary: Negative. Musculoskeletal: Negative. Skin: Negative. Allergic/Immunologic: Negative. Neurological: Negative. Hematological: Negative. Psychiatric/Behavioral: Negative. PAST SURGICAL HISTORY Procedure Laterality Date PAST SURGICAL HISTORY OF right shoulder repair PAST SURGICAL HISTORY OF left knee surgery PAST SURGICAL HISTORY OF 04/09/10 Left knee meniscus repair PAST SURGICAL HISTORY OF 05/28/10 Excision back AND chest skin cancer PAST SURGICAL HISTORY OF 2010 Excision lymph nodes left axilla VASECTOMY UNI/BI SPX W/POSTOP SEMEN EXAMS PAST MEDICAL HISTORY Diagnosis Date H/O Malignant melanoma 07/16/2011 History of coronary artery stent placement 06/20/2020 Hyperlipidemia 03/23/2021 Hypertension, benign 10/08/2016 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) 04/17/2006 Melanoma (HCC) Mitral valve disease 07/31/2010 Neoplasm of uncertain behavior of skin 11/17/2010 Other lymphedema 11/05/2011 Other primary cardiomyopathies HCM Palpitations 04/05/2022 Personal history of melanoma in-situ 04/03/2019 Pure hyperglyceridemia 10/08/2016 FAMILY HISTORY Problem Relation Age of Onset other (CAD s/p CABG, stents [Other]) Father age 65, .First [place] at age of 41 Coronary Artery Disease Paternal Grandfather Ischemic Heart Disease Paternal Uncle Cancer Mother at age 76 - mediastinal tumor Social History Tobacco Use Smoking status: Never Smokeless tobacco: Never Vaping Use Vaping status: Never Used Substance Use Topics Alcohol use: Yes Comment: occassionally Drug use: No ALLERGIES Allergen Reactions Ancef [Cefazolin] Rash, Itching MEDICATIONS: ELIQUIS 5 mg tab(s) Take 5 mg by mouth twice daily. atorvastatin (LIPITOR) 40 mg tablet Take 40 mg by mouth once daily. lisinopril (ZESTRIL, PRINIVIL) 5 mg tablet Take 5 mg by mouth once daily. metoprolol succinate ER (TOPROL XL) 100 mg Tb24 Take one tablet in the morning and one-half tablet in the evening daily. (Patient taking differently: Take 100 mg by mouth two times a day.) tirzepatide (MOUNJARO) 5 mg/0.5 mL pen injector Inject 5 mg subcutaneously one time a week. IBUPROFEN ORAL as necessary Allergies, past surgical history, family history and past medical history were reviewed per this encounter. Medications were reviewed and verified. 02/21/2024 02/27/2024 INTAKE PAIN ASSESSMENT Are you having pain associated with your visit today? No No If pain assessment is 0, no action needed. If pain assessment is positive, please see assessment and plain. Objective BP 130/80 (BP Site: Right Arm, BP Position: Sitting, BP Cuff Size: Regular Adult) Pulse 64 Temp 36.2 ?C (97.2 ?F) (Temporal) Resp 18 Ht 182.9 cm (6') Wt 109.3 kg (241 lb) SpO2 95% BMI 32.69 kg/m? Physical Exam Assessment and Plan Encounter Diagnosis ICD-10-CM 1. Class 1 obesity due to excess calories with serious comorbidity and body mass index (BMI) of 32.0 to 32.9 in adult E66.811 E66.09 Z68.32 Increase tirzepatide to 5 mg weekly. Improve diet. Exercise as tolerated. Laci Eller MD March 04, 2024 Allergies As of Date: 02/27/2024 Noted Allergy Reaction ANCEF (CEFAZOLIN) 07/24/2014 2 - Rash 9 - Itching Date Reviewed: 02/27/2024 Reviewed by: Elena Escobar MA - Fully Assessed Reason for Visit: 3 Month Follow up [Other] Primary Visit Diagnosis:Class 1 obesity due to excess calories with serious comorbidity and body mass index (BMI) of 32.0 to 32.9 in adult [E66.811, E66.09, Z68.32] Order(s):tirzepatide (MOUNJARO) 5 mg/0.5 mL pen injectorInject 5 mg subcutaneously one time a week.Disp: 2 mLRfl: 5 Prescriptions as of 03/04/2024 - tirzepatide (MOUNJARO) 5 mg/0.5 mL pen injector Inject 5 mg subcutaneously one time a week. - ELIQUIS 5 mg tab(s) Take 5 mg by mouth twice daily. - atorvastatin (LIPITOR) 40 mg tablet Take 40 mg by mouth onc (more content not included)... [facility] [employer] -- CARLOS BRIONES ([id number]) 1965 M Date Time Provider Department 11/21/23 LACI ELLER During your visit today, we recorded the following information about you: Lexi Schafer MA 11/21/2023 6:40 AM Signed Items addressed in this encounter: Prior Authorization Denied, Mounjaro Not covered when used to treat weight loss Able to close encounter. Lexi Schafer MA November 21, 2023 6:39 AM 6:39 AM Allergies As of Date: 11/21/2023 Noted Allergy Reaction ANCEF (CEFAZOLIN) 07/24/2014 2 - Rash 9 - Itching Date Reviewed: 11/17/2023 Reviewed by: Racheal Mazariegos LPN - Fully Assessed Reason for Visit: Denied, Mounjaro [Other] Prescriptions as of 11/21/2023 - tirzepatide (MOUNJARO) 2.5 mg/0.5 mL pen injector Inject 2.5 mg subcutaneously one time a week. - ELIQUIS 5 mg tab(s) Take 5 mg by mouth twice daily. - atorvastatin (LIPITOR) 40 mg tablet Take 40 mg by mouth once daily. - lisinopril (ZESTRIL, PRINIVIL) 5 mg tablet Take 5 mg by mouth once daily. - metoprolol succinate ER (TOPROL XL) 100 mg Tb24 Take one tablet in the morning and one-half tablet in the evening daily. - IBUPROFEN ORAL as necessary Problem List As Of Date 11/21/2023 Noted Resolved Hypertrophic obstructive cardiomyopathy (HOCM) *04/17/2006 Melanoma [C43.9] 05/06/2010 H/O Malignant melanoma [Z85.820] 07/16/2011 Other lymphedema [I89.0] 11/05/2011 History of coronary artery stent placement [Z95*06/20/2020 Pure hyperglyceridemia [E78.1] 10/08/2016 Personal history of melanoma in-situ [Z86.006] 04/03/2019 Palpitations [R00.2] 04/05/2022 Obstructive sleep apnea syndrome [G47.33] 09/08/2021 Obesity [E66.9] 03/25/2022 Neoplasm of uncertain behavior of skin [D48.5] 11/17/2010 Mitral valve disease [I05.9] 07/31/2010 Hypertension, benign [I10] 10/08/2016 Hyperlipidemia [E78.5] 03/23/2021 Hypertension [I10] 04/05/2022 04/04/2023 Encounter Status:Closed by LEXI SCHAFER on 11/21/23 [facility] CNPN Telephone (CHARLINES) -- MIRTACARLOS ([id number]) 1965 M Date Time Provider Department 11/21/23 LACI ELLER During your visit today, we recorded the following information about you: Lexi Schafer MA 11/21/2023 9:06 AM Signed Items addressed in this encounter: Prior Authorization Chantell Crouch Only covered when used to treat type 2 diabetes Able to close encounter. Lexi Schafer MA November 21, 2023 9:05 AM 9:05 AM Allergies As of Date: 11/21/2023 Noted Allergy Reaction ANCEF (CEFAZOLIN) 07/24/2014 2 - Rash 9 - Itching Date Reviewed: 11/17/2023 Reviewed by: Racheal Mazariegos LPN - Fully Assessed Reason for Visit: Chantell Crouch [Other] Prescriptions as of 11/21/2023 - tirzepatide (MOUNJARO) 2.5 mg/0.5 mL pen injector Inject 2.5 mg subcutaneously one time a week. - ELIQUIS 5 mg tab(s) Take 5 mg by mouth twice daily. - atorvastatin (LIPITOR) 40 mg tablet Take 40 mg by mouth once daily. - lisinopril (ZESTRIL, PRINIVIL) 5 mg tablet Take 5 mg by mouth once daily. - metoprolol succinate ER (TOPROL XL) 100 mg Tb24 Take one tablet in the morning and one-half tablet in the evening daily. - IBUPROFEN ORAL as necessary Problem List As Of Date 11/21/2023 Noted Resolved Hypertrophic obstructive cardiomyopathy (HOCM) *04/17/2006 Melanoma [C43.9] 05/06/2010 H/O Malignant melanoma [Z85.820] 07/16/2011 Other lymphedema [I89.0] 11/05/2011 History of coronary artery stent placement [Z95*06/20/2020 Pure hyperglyceridemia [E78.1] 10/08/2016 Personal history of melanoma in-situ [Z86.006] 04/03/2019 Palpitations [R00.2] 04/05/2022 Obstructive sleep apnea syndrome [G47.33] 09/08/2021 Obesity [E66.9] 03/25/2022 Neoplasm of uncertain behavior of skin [D48.5] 11/17/2010 Mitral valve disease [I05.9] 07/31/2010 Hypertension, benign [I10] 10/08/2016 Hyperlipidemia [E78.5] 03/23/2021 Hypertension [I10] 04/05/2022 04/04/2023 Encounter Status:Closed by LEXI SCHAFER on 11/21/23 [facility] CNPN Telephone (Glau[employer]) -- CARLOS BRIONES ([id number]) 1965 M Date Time Provider Department 11/21/23 LACI ELLER During your visit today, we recorded the following information about you: Lexi Schafer MA 11/21/2023 9:08 AM Signed Items addressed in this encounter: MyChart Encounter Denied, Mounjaro Only covered when used to treat type 2 diabetes Able to close encounter. Lexi Schafer MA November 21, 2023 9:08 AM 9:08 AM Allergies As of Date: 11/21/2023 Noted Allergy Reaction ANCEF (CEFAZOLIN) 07/24/2014 2 - Rash 9 - Itching Date Reviewed: 11/17/2023 Reviewed by: Racheal Mazariegos LPN - Fully Assessed Prescriptions as of 11/21/2023 - tirzepatide (MOUNJARO) 2.5 mg/0.5 mL pen injector Inject 2.5 mg subcutaneously one time a week. - ELIQUIS 5 mg tab(s) Take 5 mg by mouth twice daily. - atorvastatin (LIPITOR) 40 mg tablet Take 40 mg by mouth once daily. - lisinopril (ZESTRIL, PRINIVIL) 5 mg tablet Take 5 mg by mouth once daily. - metoprolol succinate ER (TOPROL XL) 100 mg Tb24 Take one tablet in the morning and one-half tablet in the evening daily. - IBUPROFEN ORAL as necessary Problem List As Of Date 11/21/2023 Noted Resolved Hypertrophic obstructive cardiomyopathy (HOCM) *04/17/2006 Melanoma [C43.9] 05/06/2010 H/O Malignant melanoma [Z85.820] 07/16/2011 Other lymphedema [I89.0] 11/05/2011 History of coronary artery stent placement [Z95*06/20/2020 Pure hyperglyceridemia [E78.1] 10/08/2016 Personal history of melanoma in-situ [Z86.006] 04/03/2019 Palpitations [R00.2] 04/05/2022 Obstructive sleep apnea syndrome [G47.33] 09/08/2021 Obesity [E66.9] 03/25/2022 Neoplasm of uncertain behavior of skin [D48.5] 11/17/2010 Mitral valve disease [I05.9] 07/31/2010 Hypertension, benign [I10] 10/08/2016 Hyperlipidemia [E78.5] 03/23/2021 Hypertension [I10] 04/05/2022 04/04/2023 Encounter Status:Closed by LEXI SCHAFER on 11/21/23 [facility] CNOVkirk 11-17-2023 CNOV Office Visit (COMPAPLA ) -- CARLOS BRIONES ([id number]) 1965 M Date Time Provider Department 11/17/23 1:40 PM LACI ELLER During your visit today, we recorded the following information about you: Temperature Pulse Respiration Blood pressure 98.2 degrees 58/minute 18/minute 138/82 Weight Height 112.2 kg 1.829 m Racheal Mazariegos LPN 11/21/2023 10:04 AM Signed Patient in the office today wanting to discuss weight loss options. No refills needed. Racheal Mazariegos LPN November 17, 2023 2:12 PM Laci Eller MD 11/21/2023 10:04 AM Signed Subjective Carlos Briones is a 58 year old male. Neyda presents today for evaluation of his obesity. His BMI is 33.5. His weight is 247 pounds. He is interested in weight loss medication. Review of Systems Constitutional: Negative. HENT: Negative. Eyes: Negative. Respiratory: Negative. Cardiovascular: Negative. Gastrointestinal: Negative. Endocrine: Negative. Genitourinary: Negative. Musculoskeletal: Negative. Skin: Negative. Allergic/Immunologic: Negative. Neurological: Negative. Hematological: Negative. Psychiatric/Behavioral: Negative. PAST SURGICAL HISTORY No date: PAST SURGICAL HISTORY OF Comment: right shoulder repair No date: PAST SURGICAL HISTORY OF Comment: left knee surgery 04/09/10: PAST SURGICAL HISTORY OF Comment: Left knee meniscus repair 05/28/10: PAST SURGICAL HISTORY OF Comment: Excision back AND chest skin cancer 2010: PAST SURGICAL HISTORY OF Comment: Excision lymph nodes left axilla No date: VASECTOMY UNI/BI SPX W/POSTOP SEMEN EXAMS PAST MEDICAL HISTORY 07/16/2011: H/O Malignant melanoma 06/20/2020: History of coronary artery stent placement 03/23/2021: Hyperlipidemia 10/08/2016: Hypertension, benign 04/17/2006: 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) No date: Melanoma (HCC) 07/31/2010: Mitral valve disease 11/17/2010: Neoplasm of uncertain behavior of skin 11/05/2011: Other lymphedema No date: Other primary cardiomyopathies Comment: HCM 04/05/2022: Palpitations 04/03/2019: Personal history of melanoma in-situ 10/08/2016: Pure hyperglyceridemia FAMILY HISTORY Problem Relation Age of Onset other (CAD s/p CABG, stents [Other]) Father age 65, .First [place] at age of 41 Coronary Artery Disease Paternal Grandfather Ischemic Heart Disease Paternal Uncle Cancer Mother at age 76 - mediastinal tumor Social History Tobacco Use Smoking status: Never Smokeless tobacco: Never Vaping Use Vaping Use: Never used Substance Use Topics Alcohol use: Yes Comment: occassionally Drug use: No ALLERGIES Allergen Reactions Ancef [Cefazolin] Rash, Itching MEDICATIONS: ELIQUIS 5 mg tab(s) Take 5 mg by mouth twice daily. atorvastatin (LIPITOR) 40 mg tablet Take 40 mg by mouth once daily. lisinopril (ZESTRIL, PRINIVIL) 5 mg tablet Take 5 mg by mouth once daily. metoprolol succinate ER (TOPROL XL) 100 mg Tb24 Take one tablet in the morning and one-half tablet in the evening daily. (Patient taking differently: Take 100 mg by mouth two times a day.) IBUPROFEN ORAL as necessary tirzepatide (MOUNJARO) 2.5 mg/0.5 mL pen injector Inject 2.5 mg subcutaneously one time a week. Allergies, past surgical history, family history and past medical history were reviewed per this encounter. Medications were reviewed and verified. Objective BP 138/82 (BP Site: Left Arm, BP Position: Sitting, BP Cuff Size: Large Adult) Pulse (!) 58 Temp 36.8 ?C (98.2 ?F) (Temporal) Resp 18 Ht 182.9 cm (6') Wt 112.2 kg (247 lb 4 oz) SpO2 96% BMI 33.53 kg/m? Physical Exam Vitals reviewed. Constitutional: Appearance: Normal appearance. HENT: Head: Normocephalic and atraumatic. Nose: Nose normal. Eyes: Extraocular Movements: Extraocular movements intact. Pupils: Pupils are equal, round, and reactive to light. Cardiovascular: Rate and Rhythm: Normal rate and regular rhythm. Pulmonary: Effort: Pulmonary effort is normal. Breath sounds: Normal breath sounds. Abdominal: General: Bowel sounds are normal. Palpations: Abdomen is soft. Musculoskeletal: General: Normal range of motion. Cervical back: Normal range of motion and neck supple. Skin: General: Skin is warm and dry. Capillary Refill: Capillary refill takes less than 2 seconds. Neurological: General: No focal deficit present. Mental Status: He is alert and oriented to person, place, and time. Mental status is at baseline. Psychiatric: Mood and Affect: Mood normal. Behavior: Behavior normal. Assessment and Plan Encounter Diagnosis ICD-10-CM 1. Class 1 obesity due to excess calories with serious comorbidity and body mass index (BMI) of 33.0 to 33.9 in adult E66.09 Z68.33 2. Coronary artery disease involving [place] coronary artery of [place] heart without angina pectoris I25.10 3. History of cor (more content not included)... [facility] CNPNon 11-17-2023 CNPN Telephone (FAMMAS) -- CARLOS BRIONES ([id number]) 1965 M Date Time Provider Department 11/17/23 LACI ELLER During your visit today, we recorded the following information about you: Lexi Schafer MA 11/17/2023 2:49 PM Signed Items addressed in this encounter: Prior Authorization Pending chantell Pro Able to close encounter. Lexi Schafer MA November 17, 2023 2:49 PM 2:49 PM Allergies As of Date: 11/17/2023 Noted Allergy Reaction ANCEF (CEFAZOLIN) 07/24/2014 2 - Rash 9 - Itching Date Reviewed: 11/17/2023 Reviewed by: Racheal Mazariegos LPN - Fully Assessed Reason for Visit: Pending chantell [Other] Prescriptions as of 11/17/2023 - tirzepatide (MOUNJARO) 2.5 mg/0.5 mL pen injector Inject 2.5 mg subcutaneously one time a week. - ELIQUIS 5 mg tab(s) Take 5 mg by mouth twice daily. - atorvastatin (LIPITOR) 40 mg tablet Take 40 mg by mouth once daily. - lisinopril (ZESTRIL, PRINIVIL) 5 mg tablet Take 5 mg by mouth once daily. - metoprolol succinate ER (TOPROL XL) 100 mg Tb24 Take one tablet in the morning and one-half tablet in the evening daily. - IBUPROFEN ORAL as necessary Problem List As Of Date 11/17/2023 Noted Resolved Hypertrophic obstructive cardiomyopathy (HOCM) *04/17/2006 Melanoma [C43.9] 05/06/2010 H/O Malignant melanoma [Z85.820] 07/16/2011 Other lymphedema [I89.0] 11/05/2011 History of coronary artery stent placement [Z95*06/20/2020 Pure hyperglyceridemia [E78.1] 10/08/2016 Personal history of melanoma in-situ [Z86.006] 04/03/2019 Palpitations [R00.2] 04/05/2022 Obstructive sleep apnea syndrome [G47.33] 09/08/2021 Obesity [E66.9] 03/25/2022 Neoplasm of uncertain behavior of skin [D48.5] 11/17/2010 Mitral valve disease [I05.9] 07/31/2010 Hypertension, benign [I10] 10/08/2016 Hyperlipidemia [E78.5] 03/23/2021 Hypertension [I10] 04/05/2022 04/04/2023 Encounter Status:Closed by LEXI SCHAFER on 11/17/23 [facility] Nadiya 10-05-2023 [facility] Office Visit (FAMMAS ) -- MIRTACARLOS Meño ([id number]) 1965 M Date Time Provider Department 10/05/23 2:50 PM LACI ELLER During your visit today, we recorded the following information about you: Temperature Pulse Respiration Blood pressure 97.6 degrees 76/minute 18/minute 132/82 Weight Height 111.6 kg 1.829 m Laci Eller MD 10/12/2023 8:58 AM Addendum Subjective Carlos Wilder Briones is a 58 year old male. Neyda presents today for his annual wellness visit. Additionally he follows up for multiple medical problems. See list. His chronic medical problems been stable. Blood pressure is under excellent control on his current regimen. He has no new complaints today. Review of Systems Constitutional: Negative. HENT: Negative. Eyes: Negative. Respiratory: Negative. Cardiovascular: Negative. Gastrointestinal: Negative. Endocrine: Negative. Genitourinary: Negative. Musculoskeletal: Negative. Skin: Negative. Allergic/Immunologic: Negative. Neurological: Negative. Hematological: Negative. Psychiatric/Behavioral: Negative. PAST SURGICAL HISTORY Procedure Laterality Date PAST SURGICAL HISTORY OF right shoulder repair PAST SURGICAL HISTORY OF left knee surgery PAST SURGICAL HISTORY OF 04/09/10 Left knee meniscus repair PAST SURGICAL HISTORY OF 05/28/10 Excision back AND chest skin cancer PAST SURGICAL HISTORY OF 2010 Excision lymph nodes left axilla VASECTOMY UNI/BI SPX W/POSTOP SEMEN EXAMS PAST MEDICAL HISTORY Diagnosis Date H/O Malignant melanoma 07/16/2011 History of coronary artery stent placement 06/20/2020 Hyperlipidemia 03/23/2021 Hypertension, benign 10/08/2016 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) 04/17/2006 Melanoma (HCC) Mitral valve disease 07/31/2010 Neoplasm of uncertain behavior of skin 11/17/2010 Other lymphedema 11/05/2011 Other primary cardiomyopathies HCM Palpitations 04/05/2022 Personal history of melanoma in-situ 04/03/2019 Pure hyperglyceridemia 10/08/2016 FAMILY HISTORY Problem Relation Age of Onset other (CAD s/p CABG, stents [Other]) Father age 65, .First [place] at age of 41 Coronary Artery Disease Paternal Grandfather Ischemic Heart Disease Paternal Uncle Cancer Mother at age 76 - mediastinal tumor Social History Tobacco Use Smoking status: Never Smokeless tobacco: Never Vaping Use Vaping Use: Never used Substance Use Topics Alcohol use: Yes Comment: occassionally Drug use: No ALLERGIES Allergen Reactions Ancef [Cefazolin] Rash, Itching MEDICATIONS: ELIQUIS 5 mg tab(s) Take 5 mg by mouth twice daily. atorvastatin (LIPITOR) 40 mg tablet Take 40 mg by mouth once daily. lisinopril (ZESTRIL, PRINIVIL) 5 mg tablet Take 5 mg by mouth once daily. metoprolol succinate ER (TOPROL XL) 100 mg Tb24 Take one tablet in the morning and one-half tablet in the evening daily. (Patient taking differently: Take 100 mg by mouth two times a day.) IBUPROFEN ORAL as necessary Allergies, past surgical history, family history and past medical history were reviewed per this encounter. Medications were reviewed and verified. Objective BP 132/82 (BP Site: Left Arm, BP Position: Sitting, BP Cuff Size: Regular Adult) Pulse 76 Temp 36.4 ?C (97.6 ?F) (Temporal) Resp 18 Ht 182.9 cm (6') Wt 111.6 kg (246 lb) SpO2 97% BMI 33.36 kg/m? Physical Exam Vitals reviewed. Constitutional: Appearance: Normal appearance. HENT: Head: Normocephalic and atraumatic. Nose: Nose normal. Eyes: Extraocular Movements: Extraocular movements intact. Pupils: Pupils are equal, round, and reactive to light. Cardiovascular: Rate and Rhythm: Normal rate and regular rhythm. Pulmonary: Effort: Pulmonary effort is normal. Breath sounds: Normal breath sounds. Abdominal: General: Bowel sounds are normal. Palpations: Abdomen is soft. Musculoskeletal: General: Normal range of motion. Cervical back: Normal range of motion and neck supple. Skin: General: Skin is warm and dry. Capillary Refill: Capillary refill takes less than 2 seconds. Neurological: General: No focal deficit present. Mental Status: He is alert and oriented to person, place, and time. Mental status is at baseline. Psychiatric: Mood and Affect: Mood normal. Behavior: Behavior normal. Assessment and Plan Encounter Diagnosis ICD-10-CM 1. Wellness examination Z00.00 2. Advanced care planning/counseling discussion Z71.89 ADVANCE CARE PLAN DISCUSSION 3. Hypertension, benign I10 COMPREHENSIVE METABOLIC PANEL 4. History of coronary artery stent placement Z95.5 5. Hypertrophic obstructive cardiomyopathy (HOCM) (HCC) I42.1 Stable. 6. Pure hyperglyceridemia E78.1 COMPREHENSIVE METABOLIC PANEL LIPID PANEL BASIC 7. Screening for deficiency anemia Z13.0 COMPLETE BLOOD COUNT AND DIFFERENTIAL 8. Screening PSA (p (more content not included)... Normal [facility] CNOVon 06-06-2023 CNOV Office Visit (CARIMN ) -- CARLOS BRIONES ([id number]) 1965 M Date Time Provider Department 06/06/23 7:00 AM [facility] During your visit today, we recorded the following information about you: Romain Steinberg 06/06/2023 2:39 PM Signed RESEARCH HCMR YEARLY F/U IRB# [id number] HCMR Study PI: Dr Elliott Martino Phone Call Follow-up 9 Called patient: left a voicemail with callback request and contact information. Rn Clinician: Romain Oneill Coord Pager #: [phone] Romain Steinberg 06/07/2023 11:40 AM Signed RESEARCH HCMR YEARLY F/U IRB# [id number] HCMR Study PI: Dr Elliott Martino Phone Call Follow-up 9 06/07/23 Patient called back. Did patient have a heart transplant? No NYHA Class:Class II: Slight limitation of physical activity; comfortable at rest; ordinary physical activity results in fatigue, dyspnea or anginal pain; symptomatic with moderate exertion Patient reports: Hospitalization for heart failure: No New onset of Atrial Fibrillation: No Sudden Cardiac : No Non-fatal Stroke: No Implantable ICD: No (shocks and/or ER visit or cardiology fu) Septal Myectomy : No Alcohol Septal Ablation : No Mitral Valve Replacement: No Mitral Valve Repair: No Pacemaker placement: No LVAD placement: No Any other Cardiac Surgery: No Echocardiogram: Yes Cardiac MRI: No Symptoms of: String of palpitations? Yes, not new/worsening/requiring additional treatment Near Syncope? No Syncope? No COVID-19 Exposure; Diagnosed with COVID-19? No Confirmed by testing? NA-Not diagnosed with COVID COVID Associated symptoms? Breathlessness: NA-Not diagnosed with COVID Palpitations: NA-Not diagnosed with COVID Syncope: NA-Not diagnosed with COVID Memory Loss: NA-Not diagnosed with COVID Fatigue: NA-Not diagnosed with COVID Loss of sense of taste: NA-Not diagnosed with COVID Loss of sense of smell: NA-Not diagnosed with COVID Headache: NA-Not diagnosed with COVID Admitted to a hospital? NA-Not diagnosed with COVID Require oxygen? NA-Not diagnosed with COVID Require mecahnical ventillation? NA-Not diagnosed with COVID Experience any heart related complications? NA-Not diagnosed with COVID Symptoms have returned to baseline? NA-Not diagnosed with COVID Will request outside records as needed. Meds reviewed:and updated. Rn Clinician: Romain Burnette Pager #: [phone] Referring Provider: MOUNA INGRAM [[id number]] Allergies As of Date: 06/06/2023 Noted Allergy Reaction ANCEF (CEFAZOLIN) 07/24/2014 2 - Rash 9 - Itching Date Reviewed: 04/04/2023 Reviewed by: Arabella Araujo LPN - Fully Assessed Reason for Visit: Research [[id number]] Cmt: IRB #[id number] HCMR Novel Predictors Registry Primary Visit Diagnosis:IRB #[id number] HCMR Novel Predictors Registry [Z00.6] Prescriptions as of 06/07/2023 - ELIQUIS 5 mg tab(s) Take 5 mg by mouth twice daily. - atorvastatin (LIPITOR) 40 mg tablet Take 40 mg by mouth once daily. - lisinopril (ZESTRIL, PRINIVIL) 5 mg tablet Take 5 mg by mouth once daily. - metoprolol succinate ER (TOPROL XL) 100 mg Tb24 Take one tablet in the morning and one-half tablet in the evening daily. - IBUPROFEN ORAL as necessary Problem List As Of Date 06/06/2023 Noted Resolved Hypertrophic obstructive cardiomyopathy (HOCM) *04/17/2006 Melanoma [C43.9] 05/06/2010 H/O Malignant melanoma [Z85.820] 07/16/2011 Other lymphedema [I89.0] 11/05/2011 History of coronary artery stent placement [Z95*06/20/2020 Pure hyperglyceridemia [E78.1] 10/08/2016 Personal history of melanoma in-situ [Z86.006] 04/03/2019 Palpitations [R00.2] 04/05/2022 Obstructive sleep apnea syndrome [G47.33] 09/08/2021 Obesity [E66.9] 03/25/2022 Neoplasm of uncertain behavior of skin [D48.5] 11/17/2010 Mitral valve disease [I05.9] 07/31/2010 Hypertension, benign [I10] 10/08/2016 Hyperlipidemia [E78.5] 03/23/2021 Hypertension [I10] 04/05/2022 04/04/2023 Encounter Status:Closed by ROMAIN STEINBERG on 06/06/23 Normal [facility] metabolic 2000 panelon 04-22-2023 Albumin [Mass/Vol] 4.1 g/dL Normal 3.9-4.9 [facility] Comment on above: Order Comment: Speci men Type: BLOOD SPECIMEN Ordering Facility: [facility] Address: [address] [place] [address] Performed By: #### 2 4331-1 #### [facility] CLIA [id number] [address] [id number] [place] [facility] CLIA [id number] [address] [place] [address] [place] ALP [Catalytic activity/Vol] 74 U/L Normal 38-113 [facility] Comment on above: Order Comment: Speci men Type: BLOOD SPECIMEN Ordering Facility: [facility] Address: [address] [place] [address] Performed By: #### 2 4331-1 #### [facility] CLIA [id number] [address] [id number] [place] [facility] CLIA [id number] [address] [place] [address] [place] ALT [Catalytic activity/Vol] 32 U/L Normal 10-54 [facility] Comment on above: Order Comment: Speci men Type: BLOOD SPECIMEN Ordering Facility: [facility] Address: [address] [place] [address] Performed By: #### 2 4331-1 #### [facility] CLIA [id number] [address] [id number] [place] [facility] CLIA [id number] [address] [place] [address] [place] Anion gap [Moles/Vol] 3 mmol/L Low 9-18 [facility] Comment on above: Order Comment: Speci men Type: BLOOD SPECIMEN Ordering Facility: [facility] Address: [address] [place] [address] Performed By: #### 2 4331-1 #### [facility] CLIA [id number] [address] [place] [address] [place] [facility] CLIA [id number] [address] [place] [address] [place] AST [Catalytic activity/Vol] 28 U/L Normal 14-40 [facility] Comment on above: Order Comment: Speci men Type: BLOOD SPECIMEN Ordering Facility: [facility] Address: [address] [place] [address] Performed By: #### 2 4331-1 #### [facility] CLIA [id number] [address] [place] [address] [place] [facility] CLIA [id number] [address] [place] [address] [place] Bilirubin [Mass/Vol] 0.9 mg/dL Normal 0.2-1.3 [facility] Comment on above: Order Comment: Speci men Type: BLOOD SPECIMEN Ordering Facility: [facility] Address: [address] [place] [address] Performed By: #### 2 4331-1 #### [facility] CLIA [id number] [address] [place] [address] [place] [facility] CLIA [id number] [address] [place] [address] [place] Calcium [Mass/Vol] 8.6 mg/dL Normal 8.5-10.2 [facility] Comment on above: Order Comment: Speci men Type: BLOOD SPECIMEN Ordering Facility: [facility] Address: [address] [id number] Performed By: #### 2 4331-1 #### [facility] CLIA [id number] [address] [id number] [place] [facility] CLIA [id number] [address] [place] [address] [place] Chloride [Moles/Vol] 104 mmol/L Normal 97-105 [facility] Comment on above: Order Comment: Speci men Type: BLOOD SPECIMEN Ordering Facility: [facility] Address: [address] [place] [address] Performed By: #### 2 4331-1 #### [facility] CLIA [id number] [address] [place] [address] [place] [facility] CLIA [id number] [address] [place] [address] [place] CO2 [Moles/Vol] 30 mmol/L Normal 22-30 [facility] Comment on above: Order Comment: Speci men Type: BLOOD SPECIMEN Ordering Facility: [facility] Address: [address] [place] [address] Performed By: #### 2 4331-1 #### [facility] CLIA [id number] [address] [place] [address] [place] [facility] CLIA [id number] [address] [place] [address] [place] Creatinine [Mass/Vol] 1.12 mg/dL Normal 0.73-1.22 [facility] Comment on above: Order Comment: Speci men Type: BLOOD SPECIMEN Ordering Facility: [facility] Address: [address] [place] [address] Performed By: #### 2 4331-1 #### [facility] CLIA [id number] [address] [id number] [place] [facility] CLIA [id number] [address] [place] [address] [place] Creatinine and Glomerular filtration rate.predicted panel (S/P/Bld) 75 mL/min/1.73m??? Normal >=60 [facility] Comment on above: Order Comment: Speci men Type: BLOOD SPECIMEN Ordering Facility: [facility] Address: [address] [place] [address] Result Comment: Johanna mated Glomerular Filtration Rate (eGFR) is calculated using the 2020 CKD-EPI creatinine equation. This equation utilizes serum creatinine, sex, and age as parameters. The creatinine assay has traceable calibration to isotope dilution-mass spectrometry. Refer to KDIGO guidelines for clinical interpretation. In patients with unstable renal function, e.g. those with acute kidney injury, the eGFR may not accurately reflect actual GFR. Performed By: #### 2 4331-1 #### [facility] CLIA [id number] [address] [place] [address] [place] [facility] CLIA [id number] [address] [place] [address] [place] Glucose [Mass/Vol] 109 mg/dL High 74-99 [facility] Comment on above: Order Comment: Speci men Type: BLOOD SPECIMEN Ordering Facility: [facility] Address: [address] [place] [address] Result Comment: The [place] Diabetes Association (ADA) provides guidance for cutoff values for fasting glucose and random glucose. The ADA defines fasting as no caloric intake for at least 8 hours. Fasting plasma glucose results between 100 to 125 mg/dL indicate increased risk for diabetes (prediabetes). Fasting plasma glucose results greater than or equal to 126 mg/dL meet the criteria for diagnosis of diabetes. In the absence of unequivocal hyperglycemia, results should be confirmed by repeat testing. In a patient with classic symptoms of hyperglycemia or hyperglycemic crisis, random plasma glucose results greater than or equal to 200 mg/dL meet the criteria for diagnosis of diabetes. Reference: Standards of Medical Care in Diabetes 2016, [place] Diabetes Association. Diabetes Care. 2016.39(Suppl 1). Performed By: #### 2 4331-1 #### [facility] CLIA [id number] [address] [place] [address] [place] [facility] CLIA [id number] [address] [place] [address] [place] Potassium [Moles/Vol] 4.7 mmol/L Normal 3.7-5.1 [facility] Comment on above: Order Comment: Speci men Type: BLOOD SPECIMEN Ordering Facility: [facility] Address: [address] [place] [address] Performed By: #### 2 4331-1 #### [facility] CLIA [id number] [address] [place] [address] [place] [facility] CLIA [id number] [address] [place] [address] [place] Protein [Mass/Vol] 6.1 g/dL Low 6.3-8.0 [facility] Comment on above: Order Comment: Speci men Type: BLOOD SPECIMEN Ordering Facility: [facility] Address: [address] [place] [address] Performed By: #### 2 4331-1 #### [facility] CLIA [id number] [address] [place] [address] [place] [facility] CLIA [id number] [address] [place] [address] [place] Sodium [Moles/Vol] 137 mmol/L Normal 136-144 [facility] Comment on above: Order Comment: Speci men Type: BLOOD SPECIMEN Ordering Facility: [facility] Address: [address] [place] [address] Performed By: #### 2 4331-1 #### [facility] CLIA [id number] [address] [place] [address] [place] [facility] CLIA [id number] [address] [place] [address] [place] Urea nitrogen [Mass/Vol] 18 mg/dL Normal 9-24 [facility] Comment on above: Order Comment: Speci men Type: BLOOD SPECIMEN Ordering Facility: [facility] Address: [address] [place] [address] Performed By: #### 2 4331-1 #### [facility] CLIA [id number] [address] [place] [address] [place] [facility] CLIA [id number] [address] [place] [address] [place] Lipid 1996 panelon 4 Cholesterol [Mass/Vol] 125 mg/dL Normal <200 [facility] Comment on above: Order Comment: Speci men Type: BLOOD SPECIMEN Ordering Facility: [facility] Address: [address] [place] [address] Result Comment: <200 mg/dL, Desirable 200-239 mg/dL, Borderline high >239 mg/dL, High Performed By: #### 2 4331-1 #### [facility] CLIA [id number] [address] [place] [address] [place] [facility] CLIA [id number] [address] [place] [address] [place] Cholesterol in HDL [Mass/Vol] 43 mg/dL Normal >39 [facility] Comment on above: Order Comment: Speci men Type: BLOOD SPECIMEN Ordering Facility: [facility] Address: [address] [place] [address] Result Comment: 40-5 9 mg/dL, Acceptable >59 mg/dL, High: Negative risk factor for coronary heart disease <40 mg/dL, Low: Positive risk factor for coronary heart disease Performed By: #### 2 4331-1 #### [facility] CLIA [id number] [address] [place] [address] [place] [facility] CLIA [id number] [address] [place] [address] [place] Cholesterol in LDL [Mass/Vol] 68 mg/dL Normal <100 [facility] Comment on above: Order Comment: Speci men Type: BLOOD SPECIMEN Ordering Facility: [facility] Address: [address] [place] [address] Result Comment: <100 mg/dL, Optimal 100-129 mg/dL, Near optimal/above optimal 130-159 mg/dL, Borderline high 160-189 mg/dL, High >189 mg/dL, Very high Secondary prevention optimal LDL Cholesterol levels are recommended to be < 70 mg/dL Performed By: #### 2 4331-1 #### [facility] CLIA [id number] [address] [facility] [place] [address] [place] [facility] CLIA [id number] [address] [place] [address] [place] Cholesterol in LDL/Cholesterol in HDL [Mass ratio] 1.58 {ratio} Normal <2.54 [facility] Comment on above: Order Comment: Speci men Type: BLOOD SPECIMEN Ordering Facility: [facility] Address: [address] [place] [address] Result Comment: Refe rence: 1. National Cholesterol Education Program ATP III Guideline At-A-Glance Quick Desk Reference: National Heart, Lung, and Blood [place]. National Institutes of Health. 2001: NIH Publication No. 01-3305. 2. An International Atherosclerosis Society position paper: global recommendations for the management of dyslipidemia: executive summary, Atherosclerosis. 2014: 232(2):410-413. Performed By: #### 2 4331-1 #### [facility] CLIA [id number] [address] [place] [address] [place] [facility] CLIA [id number] [address] [place] [address] [place] Cholesterol in VLDL [Mass/Vol] 14 mg/dL Normal <30 [facility] Comment on above: Order Comment: Speci men Type: BLOOD SPECIMEN Ordering Facility: [facility] Address: [address] [place] [address] Performed By: #### 2 4331-1 #### [facility] CLIA [id number] [address] [place] [address] [place] [facility] CLIA [id number] [address] [place] [address] [place] Cholesterol non HDL [Mass/Vol] 82 mg/dL Normal <130 [facility] Comment on above: Order Comment: Speci men Type: BLOOD SPECIMEN Ordering Facility: [facility] Address: [address] [id number] Result Comment: <130 mg/dL, Optimal 130-159 mg/dL, Near optimal/above optimal 160-189 mg/dL, Borderline high 190-219 mg/dL, High >219 mg/dL, Very high Secondary prevention optimal non HDL Cholesterol levels are recommended to be <100 mg/dL Performed By: #### 2 4331-1 #### [facility] CLIA [id number] [address] [place] [address] [place] [facility] CLIA [id number] [address] [place] [address] [place] Cholesterol.total/Ch olesterol in HDL [Mass ratio] 2.91 {ratio} Normal <5.10 [facility] Comment on above: Order Comment: Carai men Type: BLOOD SPECIMEN Ordering Facility: [facility] Address: [address] [id number] Performed By: #### 2 4331-1 #### [facility] CLIA [id number] [address] [place] [address] [place] [facility] CLIA [id number] [address] [place] [address] [place] FASTING TIME 13 hrs Normal [facility] Comment on above: Order Comment: Speci men Type: BLOOD SPECIMEN Ordering Facility: [facility] Address: [address] [phone] Performed By: #### 2 4331-1 #### [facility] CLIA [id number] [address] [id number] [place] [facility] CLIA [id number] [address] [place] [address] [place] Triglyceride [Mass/Vol] 71 mg/dL Normal <150 [facility] Comment on above: Order Comment: Speci men Type: BLOOD SPECIMEN Ordering Facility: [facility] Address: [address] [place] [address] Result Comment: <150 mg/dL, Normal 150-199 mg/dL, Borderline high 200-499 mg/dL, High >499 mg/dL, Very high Performed By: #### 2 4331-1 #### [facility] CLIA [id number] [address] [facility] [address] [id number] [address] [place] [facility] CLIA [id number] [address] CNOVon 04-04-2023 CNOV Office Visit ([facility] ) -- CARLOS BRIONES ([id number]) 1965 M Date Time Provider Department 04/04/23 9:50 AM LACI ELLER During your visit today, we recorded the following information about you: Temperature Pulse Respiration Blood pressure 97.6 degrees 62/minute 18/minute 112/76 Weight Height 112.1 kg 1.829 m Arabella Araujo LPN 04/04/2023 11:02 AM Signed Patient is in office today for 6 month exam. Patient has no current complaints or concerns. Patient would like to have Flu Vaccine and Shingles vaccines if able. No refills needed Arabella Araujo LPN April 04, 2023 9:30 AM Laci Eller MD 04/04/2023 11:02 AM Signed This note was created using Softfrontriter. Subjective Carlos Briones is a 58 year old male. He presents today for follow-up for multiple medical problems. See list. His chronic medical problems are stable and well-controlled. His blood pressure is excellent today. He has no new complaints today. He is doing well. Review of Systems Constitutional: Negative. HENT: Negative. Eyes: Negative. Respiratory: Negative. Cardiovascular: Negative. Gastrointestinal: Negative. Endocrine: Negative. Genitourinary: Negative. Musculoskeletal: Negative. Skin: Negative. Allergic/Immunologic: Negative. Neurological: Negative. Hematological: Negative. Psychiatric/Behavioral: Negative. Objective BP 112/76 (BP Site: Left Arm, BP Position: Sitting, BP Cuff Size: Regular Adult) Pulse 62 Temp 36.4 ?C (97.6 ?F) (Temporal) Resp 18 Ht 182.9 cm (6') Wt 112.1 kg (247 lb 3.2 oz) SpO2 97% BMI 33.53 kg/m? Physical Exam Vitals reviewed. Constitutional: Appearance: Normal appearance. HENT: Head: Normocephalic and atraumatic. Nose: Nose normal. Eyes: Extraocular Movements: Extraocular movements intact. Pupils: Pupils are equal, round, and reactive to light. Cardiovascular: Rate and Rhythm: Normal rate and regular rhythm. Pulmonary: Effort: Pulmonary effort is normal. Breath sounds: Normal breath sounds. Abdominal: General: Bowel sounds are normal. Palpations: Abdomen is soft. Musculoskeletal: General: Normal range of motion. Cervical back: Normal range of motion and neck supple. Skin: General: Skin is warm and dry. Capillary Refill: Capillary refill takes less than 2 seconds. Neurological: General: No focal deficit present. Mental Status: He is alert and oriented to person, place, and time. Mental status is at baseline. Psychiatric: Mood and Affect: Mood normal. Behavior: Behavior normal. Assessment and Plan Encounter Diagnosis ICD-10-CM 1. Hypertension, essential I10 COMP METABOLIC PANEL 2. Pure hypercholesterolemia E78.00 COMP METABOLIC PANEL LIPID PANEL BASIC 3. History of coronary artery stent placement Z95.5 4. Hypertrophic obstructive cardiomyopathy (HOCM) ([facility]) I42.1 5. Obstructive sleep apnea syndrome G47.33 Continue present medications. Check labs as above. Follow-up in 6 months for wellness exam. Laci Eller MD Allergies As of Date: 04/04/2023 Noted Allergy Reaction ANCEF (CEFAZOLIN) 07/24/2014 2 - Rash 9 - Itching Date Reviewed: 04/04/2023 Reviewed by: Arabella Araujo LPN - Fully Assessed Reason for Visit: 6 Month Exam [189] Primary Visit Diagnosis:Hypertension, essential [I10] Other Visit Diagnoses:Pure hypercholesterolemia [E78.00] History of coronary artery stent placement [Z95.5] Hypertrophic obstructive cardiomyopathy (HOCM) (HCC) [I42.1] Obstructive sleep apnea syndrome [G47.33] Order(s):COMP METABOLIC PANEL [SQCMP] Order #: [id number] FUTURE LIPID PANEL BASIC [SQLIPB] Order #: [id number] FUTURE Prescriptions as of 04/04/2023 - ELIQUIS 5 mg tab(s) Take 5 mg by mouth twice daily. - atorvastatin (LIPITOR) 40 mg tablet Take 40 mg by mouth once daily. - lisinopril (ZESTRIL, PRINIVIL) 5 mg tablet Take 5 mg by mouth once daily. - metoprolol succinate ER (TOPROL XL) 100 mg Tb24 Take one tablet in the morning and one-half tablet in the evening daily. - IBUPROFEN ORAL as necessary Problem List As Of Date 04/04/2023 Noted Resolved Hypertrophic obstructive cardiomyopathy (HOCM) *04/17/2006 Melanoma [C43.9] 05/06/2010 H/O Malignant melanoma [Z85.820] 07/16/2011 Other lymphedema [I89.0] 11/05/2011 History of coronary artery stent placement [Z95*06/20/2020 Pure hyperglyceridemia [E78.1] 10/08/2016 Personal history of melanoma in-situ [Z86.006] 04/03/2019 Palpitations [R00.2] 04/05/2022 Obstructive sleep apnea syndrome [G47.33] 09/08/2021 Obesity [E66.9] 03/25/2022 Neoplasm of uncertain behavior of skin [D48.5] 11/17/2010 Mitral valve disease [I05.9] 07/31/2010 Hypertension, benign [I10] 10/08/2016 Hyperlipidemia [E78.5] 03/23/2021 Hypertension [I10] 04/05/2022 04/04/2023 Medications Discontinued During This Encounter Prescriptions - multivitamin (more content not included)... Normal [facility] CBC W Auto Differential pane l (Bld)on 10-08-2022 Basophils (Bld) [#/Vol] 0.05 10*3/uL Normal <0.11 [facility] Comment on above: Order Comment: Speci men Type: BLOOD SPECIMEN Ordering Facility: [facility] Address: [address] [address] Performed By: #### 5 7021-8 #### [facility] CLIA [id number] [address] [place] [address] [place] Basophils/100 WBC (Bld) 0.6 % Normal [facility] Comment on above: Order Comment: Speci men Type: BLOOD SPECIMEN Ordering Facility: [facility] Address: [address] [place] [address] Performed By: #### 5 7021-8 #### [facility] CLIA [id number] [address] [place] [address] [place] Differential cell count method Nom (Bld) Auto Normal [facility] Comment on above: Order Comment: Speci men Type: BLOOD SPECIMEN Ordering Facility: [facility] Address: [address] [place] [address] Performed By: #### 5 7021-8 #### [facility] CLIA [id number] [address] [place] [address] [place] Eosinophils (Bld) [#/Vol] 0.19 10*3/uL Normal <0.46 [facility] Comment on above: Order Comment: Speci men Type: BLOOD SPECIMEN Ordering Facility: [facility] Address: [address] [place], [place] [address] Performed By: #### 5 7021-8 #### [facility] CLIA [id number] [address] [place] [address] [place] Eosinophils/100 WBC (Bld) 2.3 % Normal [facility] Comment on above: Order Comment: Speci men Type: BLOOD SPECIMEN Ordering Facility: [facility] Address: [address] [place] [address] Performed By: #### 5 7021-8 #### [facility] CLIA [id number] [address] [place] [address] [place] Erythrocyte distribution width (RBC) [Ratio] 13.2 % Normal 11.5-15.0 [facility] Comment on above: Order Comment: Speci men Type: BLOOD SPECIMEN Ordering Facility: [facility] Address: [address] [place] [address] Performed By: #### 5 7021-8 #### [facility] CLIA [id number] [address] [place] [address] [place] Hematocrit (Bld) [Volume fraction] 45.7 % Normal 39.0-51.0 [facility] Comment on above: Order Comment: Speci men Type: BLOOD SPECIMEN Ordering Facility: [facility] Address: [address] [place] [address] Performed By: #### 5 7021-8 #### [facility] CLIA [id number] [address] [place] [address] [place] Hemoglobin (Bld) [Mass/Vol] 15.7 g/dL Normal 13.0-17.0 [facility] Comment on above: Order Comment: Speci men Type: BLOOD SPECIMEN Ordering Facility: [facility] Address: [address] [place] [address] Performed By: #### 5 7021-8 #### [facility] CLIA [id number] [address] [place] [address] [place] Immature granulocytes (Bld) [#/Vol] 0.03 10*3/uL Normal <0.10 [facility] Comment on above: Order Comment: Speci men Type: BLOOD SPECIMEN Ordering Facility: [facility] Address: [address] [place] [address] Performed By: #### 5 7021-8 #### [facility] CLIA [id number] [address] [place] [address] [place] Immature granulocytes/100 WBC (Bld) 0.4 % Normal [facility] Comment on above: Order Comment: Speci men Type: BLOOD SPECIMEN Ordering Facility: [facility] Address: [address] [place] [address] Performed By: #### 5 7021-8 #### [facility] CLIA [id number] [address] [place] [address] [place] Lymphocytes (Bld) [#/Vol] 3.54 10*3/uL Normal 1.00-4.00 [facility] Comment on above: Order Comment: Speci men Type: BLOOD SPECIMEN Ordering Facility: [facility] Address: [address] [place] [address] Performed By: #### 5 7021-8 #### [id number] [address] [place] [address] [place] Lymphocytes/100 WBC (Bld) 43.6 % Normal [facility] Comment on above: Order Comment: Speci men Type: BLOOD SPECIMEN Ordering Facility: [facility] Address: [address] [place] [address] Performed By: #### 5 7021-8 #### [id number] [address] [place] [address] [place] MCH (RBC) [Entitic mass] 29.5 pg Normal 26.0-34.0 [facility] Comment on above: Order Comment: Speci men Type: BLOOD SPECIMEN Ordering Facility: [facility] Address: [address] [place] [address] Performed By: #### 5 7021-8 #### [facility] [id number] [address] [place] [address] [place] MCHC (RBC) [Mass/Vol] 34.4 g/dL Normal 30.5-36.0 [facility] Comment on above: Order Comment: Speci men Type: BLOOD SPECIMEN Ordering Facility: [facility] Address: [address] Performed By: #### 5 7021-8 #### [facility] CLIA [id number] [address] [place] [address] [place] MCV (RBC) [Entitic vol] 85.9 fL Normal 80.0-100.0 [facility] Comment on above: Order Comment: Speci men Type: BLOOD SPECIMEN Ordering Facility: [facility] Address: [address] [address] Performed By: #### 5 7021-8 #### [facility] CLIA [id number] [address] [place] [address] [place] Monocytes (Bld) [#/Vol] 0.53 10*3/uL Normal <0.87 [facility] Comment on above: Order Comment: Speci men Type: BLOOD SPECIMEN Ordering Facility: [facility] Address: [address] [address] Performed By: #### 5 7021-8 #### [facility] CLIA [id number] [address] [place] [address] [place] Monocytes/100 WBC (Bld) 6.5 % Normal [facility] Comment on above: Order Comment: Speci men Type: BLOOD SPECIMEN Ordering Facility: [facility] Address: [address] Performed By: #### 5 7021-8 #### [facility] CLIA [id number] [address] [place] [address] [place] Neutrophils (Bld) [#/Vol] 3.77 10*3/uL Normal 1.45-7.50 [facility] Comment on above: Order Comment: Speci men Type: BLOOD SPECIMEN Ordering Facility: [facility] Address: [address] [address] Performed By: #### 5 7021-8 #### [facility] CLIA [id number] [address] [place] [address] [place] Neutrophils/100 WBC (Bld) 46.6 % Normal [facility] Comment on above: Order Comment: Speci men Type: BLOOD SPECIMEN Ordering Facility: [facility] Address: [address] [place] [address] Performed By: #### 5 7021-8 #### [facility] CLIA [id number] [address] [place] [address] [place] Nucleated RBC (Bld) [#/Vol] 10*3/uL Normal <0.01 [facility] Comment on above: Order Comment: Speci men Type: BLOOD SPECIMEN Ordering Facility: [facility] Address: [address] [place] [address] Performed By: #### 5 7021-8 #### [facility] CLIA [id number] [address] [place] [address] [place] Nucleated RBC/100 WBC (Bld) [Ratio] 0.0 /100 WBC Normal [facility] Comment on above: Order Comment: Speci men Type: BLOOD SPECIMEN Ordering Facility: [facility] Address: [address] [place] [address] Performed By: #### 5 7021-8 #### [facility] CLIA [id number] [address] [place] [address] [place] Platelet mean volume (Bld) [Entitic vol] 10.5 fL Normal 9.0-12.7 [facility] Comment on above: Order Comment: Speci men Type: BLOOD SPECIMEN [facility] [facility] Address: [address] [place] [address] Performed By: #### 5 7021-8 #### [facility] CLIA [id number] [address] [place] [address] [place] Platelets (Bld) [#/Vol] 181 10*3/uL Normal 150-400 [facility] Comment on above: Order Comment: Speci men Type: BLOOD SPECIMEN Ordering Facility: [facility] Address: [address] [address] Performed By: #### 5 7021-8 #### [facility] CLIA [id number] [address] [place] [address] [place] RBC (Bld) [#/Vol] 5.32 10*6/uL Normal 4.20-6.00 [facility] Comment on above: Order Comment: Speci men Type: BLOOD SPECIMEN Ordering Facility: [facility] Address: [address] [address] Performed By: #### 5 7021-8 #### [facility] CLIA [id number] [address] [place] [address] [place] WBC (Bld) [#/Vol] 8.11 10*3/uL Normal 3.70-11.00 [facility] Comment on above: Order Comment: Speci men Type: BLOOD SPECIMEN Ordering Facility: [facility] Address: [address] [address] Performed By: #### 5 7021-8 #### [facility] CLIA [id number] [address] [place] [address] [place] Comprehensive metabolic 2000 panelon 10-08-2022 Albumin [Mass/Vol] 4.3 g/dL Normal 3.9-4.9 [facility] Comment on above: Order Comment: Speci men Type: BLOOD SPECIMEN Ordering Facility: [facility] Address: [address] [address] Performed By: #### 2 4323-8 #### [facility] CLIA [id number] [address] [place] [address] [place] ALP [Catalytic activity/Vol] 74 U/L Normal 38-113 [facility] Comment on above: Order Comment: Speci men Type: BLOOD SPECIMEN Ordering Facility: [facility] Address: [address] [address] Performed By: #### 2 4323-8 #### [facility] CLIA [id number] [address] [place] [address] [place] [facility] ALT [Catalytic activity/Vol] 28 U/L Normal 10-54 [facility] Comment on above: Order Comment: Speci men Type: BLOOD SPECIMEN Ordering Facility: [facility] Address: [address] [address] Performed By: #### 2 4323-8 #### [facility] CLIA [id number] [address] [place] [address] [place] Anion gap [Moles/Vol] 6 mmol/L Low 9-18 [facility] Comment on above: Order Comment: Speci men Type: BLOOD SPECIMEN Ordering Facility: [facility] Address: [address] [address] Performed By: #### 2 4323-8 #### [facility] CLIA [id number] [address] [place] [address] [place] AST [Catalytic activity/Vol] 24 U/L Normal 14-40 [facility] Comment on above: Order Comment: Speci men Type: BLOOD SPECIMEN Ordering Facility: [facility] Address: [address] [address] Performed By: #### 2 4323-8 #### [facility] CLIA [id number] [address] [place] [address] [place] Bilirubin [Mass/Vol] 0.6 mg/dL Normal 0.2-1.3 [facility] Comment on above: Order Comment: Speci men Type: BLOOD SPECIMEN Ordering Facility: [facility] Address: [address] [address] Performed By: #### 2 4323-8 #### [facility] CLIA [id number] [address] [place] [address] [place] Calcium [Mass/Vol] 8.7 mg/dL Normal 8.5-10.2 [facility] Comment on above: Order Comment: Speci men Type: BLOOD SPECIMEN Ordering Facility: [facility] Address: [address] [place] [address] Performed By: #### 2 4323-8 #### [facility] CLIA [id number] [address] [place] [address] [place] Chloride [Moles/Vol] 104 mmol/L Normal 97-105 [facility] Comment on above: Order Comment: Speci men Type: BLOOD SPECIMEN Ordering Facility: [facility] Address: [address] [place] [address] Performed By: #### 2 4323-8 #### [facility] CLIA [id number] [address] [place] [address] [place] CO2 [Moles/Vol] 27 mmol/L Normal 22-30 [facility] Comment on above: Order Comment: Speci men Type: BLOOD SPECIMEN Ordering Facility: [facility] Address: [address] [place] [address] Performed By: #### 2 4323-8 #### [facility] CLIA [id number] [address] [place] [address] [place] Creatinine [Mass/Vol] 1.05 mg/dL Normal 0.73-1.22 [facility] Comment on above: Order Comment: Speci men Type: BLOOD SPECIMEN Ordering Facility: [facility] Address: [address] [place] [address] Performed By: #### 2 4323-8 #### [facility] CLIA [id number] [address] [place] [address] [place] ESTIMATED GLOMERULAR FILTRATION RATE 82 mL/min/1.73m??? Normal >=60 [facility] Comment on above: Order Comment: Speci men Type: BLOOD SPECIMEN Ordering Facility: [facility] Address: [address] [id number] Result Comment: Johanna mated Glomerular Filtration Rate (eGFR) is calculated using the 2020 CKD-EPI creatinine equation. This equation utilizes serum creatinine, sex, and age as parameters. The creatinine assay has traceable calibration to isotope dilution-mass spectrometry. Refer to KDIGO guidelines for clinical interpretation. In patients with unstable renal function, e.g. those with acute kidney injury, the eGFR may not accurately reflect actual GFR. Performed By: #### 2 4323-8 #### [id number] [address] [place] [address] [place] Glucose [Mass/Vol] 106 mg/dL High 74-99 [facility] Comment on above: Order Comment: Aram noyola Type: BLOOD SPECIMEN Ordering Facility: [facility] Address: [address] [address] Result Comment: The [place] Diabetes Association (ADA) provides guidance for cutoff values for fasting glucose and random glucose. The ADA defines fasting as no caloric intake for at least 8 hours. Fasting plasma glucose results between 100 to 125 mg/dL indicate increased risk for diabetes (prediabetes). Fasting plasma glucose results greater than or equal to 126 mg/dL meet the criteria for diagnosis of diabetes. In the absence of unequivocal hyperglycemia, results should be confirmed by repeat testing. In a patient with classic symptoms of hyperglycemia or hyperglycemic crisis, random plasma glucose results greater than or equal to 200 mg/dL meet the criteria for diagnosis of diabetes. Reference: Standards of Medical Care in Diabetes 2016, [place] Diabetes Association. Diabetes Care. 2016.39(Suppl 1). Performed By: #### 2 4323-8 #### [id number] [address] [place] [address] [place] Potassium [Moles/Vol] 4.8 mmol/L Normal 3.7-5.1 [facility] Comment on above: Order Comment: Aram noyola Type: BLOOD SPECIMEN Ordering Facility: [facility] Address: [address] [address] Performed By: #### 2 4323-8 #### [facility] CLIA [id number] [address] [place] [address] [place] Protein [Mass/Vol] 6.3 g/dL Normal 6.3-8.0 [facility] Comment on above: Order Comment: Speci men Type: BLOOD SPECIMEN Ordering Facility: [facility] Address: [address] [address] Performed By: #### 2 4323-8 #### [facility] CLIA [id number] [address] [place] [address] [place] Sodium [Moles/Vol] 137 mmol/L Normal 136-144 [facility] Comment on above: Order Comment: Speci men Type: BLOOD SPECIMEN Ordering Facility: [facility] Address: [address] [place] [address] Performed By: #### 2 4323-8 #### [facility] CLIA [id number] [address] [place] [address] [place] Urea nitrogen [Mass/Vol] 19 mg/dL Normal 9-24 [facility] Comment on above: Order Comment: Speci men Type: BLOOD SPECIMEN Ordering Facility: [facility] Address: [address] [place] [address] Performed By: #### 2 4323-8 #### [facility] CLIA [id number] [address] [place] [address] [place] Lipid 1996 panelon 3 Cholesterol [Mass/Vol] 114 mg/dL Normal <200 [facility] Comment on above: Order Comment: Speci men Type: BLOOD SPECIMEN Ordering Facility: [facility] Address: [address] [place] [address] Result Comment: <200 mg/dL, Desirable 200-239 mg/dL, Borderline high >239 mg/dL, High Performed By: #### 2 4331-1 #### [facility] CLIA [id number] [address] [id number] [place] [facility] CLIA [id number] [address] [place] [address] [place] Cholesterol in HDL [Mass/Vol] 49 mg/dL Normal >39 [facility] Comment on above: Order Comment: Aram noyola Type: BLOOD SPECIMEN Ordering Facility: [facility] Address: [address] [place], [place] [phone] Result Comment: 40-5 9 mg/dL, Acceptable >59 mg/dL, High: Negative risk factor for coronary heart disease <40 mg/dL, Low: Positive risk factor for coronary heart disease Performed By: #### 2 4331-1 #### [facility] CLIA [id number] [address] [id number] [place] [facility] CLIA [id number] [address] [place] [address] [place] Cholesterol in LDL [Mass/Vol] 53 mg/dL Normal <100 [facility] Comment on above: Order Comment: Aram noyola Type: BLOOD SPECIMEN Ordering Facility: [facility] Address: [address] [place] [address] Result Comment: <100 mg/dL, Optimal 100-129 mg/dL, Near optimal/above optimal 130-159 mg/dL, Borderline high 160-189 mg/dL, High >189 mg/dL, Very high Secondary prevention optimal LDL Cholesterol levels are recommended to be < 70 mg/dL Performed By: #### 2 4331-1 #### [facility] CLIA [id number] [address] [id number] [place] [facility] CLIA [id number] [address] [place] [address] [place] Cholesterol in LDL/Cholesterol in HDL [Mass ratio] 1.08 {ratio} Normal <2.54 [facility] Comment on above: Order Comment: Aram noyola Type: BLOOD SPECIMEN Ordering Facility: [facility] Address: [address] [place], [place] [phone] Result Comment: Vi al: 1. National Cholesterol Education Program ATP III Guideline At-A-Glance Quick Desk Reference: National Heart, Lung, and Blood [place]. National Institutes of Health. 2001: NIH Publication No. 01-3305. 2. An International Atherosclerosis Society position paper: global recommendations for the management of dyslipidemia: executive summary, Atherosclerosis. 2014: 232(2):410-413. Performed By: #### 2 4331-1 #### [facility] CLIA [id number] [address] [facility] [address] STATES OF [facility] CLIA [id number] [address] [place] [address] [place] Cholesterol in VLDL [Mass/Vol] 12 mg/dL Normal <30 [facility] Comment on above: Order Comment: Aram men Type: BLOOD SPECIMEN Ordering Facility: [facility] Address: [address] [address] Performed By: #### 2 4331-1 #### [facility] CLIA [id number] [address] STATES OF [facility] CLIA [id number] [address] [place] [address] [place] Cholesterol non HDL [Mass/Vol] 65 mg/dL Normal <130 [facility] Comment on above: Order Comment: Aram noyola Type: BLOOD SPECIMEN Ordering Facility: [facility] Address: [address] [place] [address] Result Comment: <130 mg/dL, Optimal 130-159 mg/dL, Near optimal/above optimal 160-189 mg/dL, Borderline high 190-219 mg/dL, High >219 mg/dL, Very high Secondary prevention optimal non HDL Cholesterol levels are recommended to be <100 mg/dL Performed By: #### 2 4331-1 #### [facility] CLIA [id number] [address] STATES OF [facility] CLIA [id number] [address] [place] [address] [place] Cholesterol.total/Ch olesterol in HDL [Mass ratio] 2.33 {ratio} Normal <5.10 [facility] Comment on above: Order Comment: Speci men Type: BLOOD SPECIMEN Ordering Facility: [facility] Address: [address] [place] [address] Performed By: #### 2 4331-1 #### [facility] CLIA [id number] [address] [place] [address] [place] [facility] CLIA [id number] [address] [place] [address] [place] FASTING TIME 12 hrs Normal [facility] Comment on above: Order Comment: Speci men Type: BLOOD SPECIMEN Ordering Facility: [facility] Address: [address] [place] [address] Performed By: #### 2 4331-1 #### [facility] CLIA [id number] [facility] [place] [address] [place] [facility] CLIA [id number] [address] [place] [address] [place] Triglyceride [Mass/Vol] 60 mg/dL Normal <150 [facility] Comment on above: Order Comment: Speci men Type: BLOOD SPECIMEN Ordering Facility: [facility] Address: [address] [place] [address] Result Comment: <150 mg/dL, Normal 150-199 mg/dL, Borderline high 200-499 mg/dL, High >499 mg/dL, Very high Performed By: #### 2 4331-1 #### [facility] CLIA [id number] [facility] [place] [address] [place] [facility] CLIA [id number] [address] [place] [address] [place] PSA/PROSTSPECAG SCRNon 10-08 Prostate specific Ag [Mass/Vol] 0.48 ng/mL Normal <2.60 [facility] Comment on above: Order Comment: Speci men Type: BLOOD SPECIMEN Ordering Facility: [facility] Address: [address] [place] [address] Result Comment: Bharat leos PSA test methodology used is the Electrochemiluminescence Immunoassay by [employer]. Total PSA values by differing methodologies cannot be interchanged. Performed By: #### P SAS1 #### [facility] CLIA [id number] [address] CNOVon 06-16-2022 CNOV Office Visit (CARIMN ) -- CARLOS BRIONES ([id number]) 1965 M Date Time Provider Department 06/16/22 7:00 AM [facility] During your visit today, we recorded the following information about you: Romain Oneill Coord 06/16/2022 3:47 PM Signed [facility] H[facility] YEARLY F/U IRB# [id number] [facility] Study PI: Dr Ingram Year Phone Call Follow-up 8 Left a VM with callback request and contact information. Rn Clinician: Romain Oneill Coord Pager #: [phone] Romain Oneill Coord 06/30/2022 2:09 PM Signed [facility] HCMR YEARLY F/U IRB# [id number] [facility] Study PI: Dr Ingram Year Phone Call Follow-up 8 Attempt #2 Left a VM with callback request and contact information. Rn Clinician: Romain Oneill Coord Pager #: [phone] Romain Oneill Coord 07/14/2022 8:42 AM Signed [facility] HCMR YEARLY F/U IRB# [id number] [facility] Study PI: Dr Ingram Year Phone Call Follow-up 8 Did patient have a heart transplant? No NYHA Class:Class II: Slight limitation of physical activity; comfortable at rest; ordinary physical activity results in fatigue, dyspnea or anginal pain; symptomatic with moderate exertion Patient reports: Hospitalization for heart failure: No New onset of Atrial Fibrillation: No Sudden Cardiac : No Non-fatal Stroke: No Implantable ICD: No (shocks and/or ER visit or cardiology fu) Septal Myectomy : No Alcohol Septal Ablation : No Mitral Valve Replacement: No Mitral Valve Repair: No Pacemaker placement: No LVAD placement: No Any other Cardiac Surgery: No Echocardiogram: Yes Cardiac MRI: No Symptoms of: String of palpitations? No Near Syncope? No Syncope? No COVID-19 Exposure; Diagnosed with COVID-19? No Confirmed by testing? NA-Not diagnosed with COVID COVID Associated symptoms? Breathlessness: NA-Not diagnosed with COVID Palpitations: NA-Not diagnosed with COVID Syncope: NA-Not diagnosed with COVID Memory Loss: NA-Not diagnosed with COVID Fatigue: NA-Not diagnosed with COVID Loss of sense of taste: NA-Not diagnosed with COVID Loss of sense of smell: NA-Not diagnosed with COVID Headache: NA-Not diagnosed with COVID Admitted to a hospital? NA-Not diagnosed with COVID Require oxygen? NA-Not diagnosed with COVID Require mecahnical ventillation? NA-Not diagnosed with COVID Experience any heart related complications? NA-Not diagnosed with COVID Symptoms have returned to baseline? NA-Not diagnosed with COVID Will request outside records as needed. Meds reviewed:and updated. Rn Clinician: Romain Burnette Pager #: [phone] Romain Burnette 07/14/2022 8:45 AM Signed Addended by: ROMAIN STEINBERG on: 07/14/2022 08:45 AM Modules accepted: Orders Referring Provider: MOUNA INGRAM [[id number]] Allergies As of Date: 06/16/2022 Noted Allergy Reaction ANCEF (CEFAZOLIN) 07/24/2014 2 - Rash 9 - Itching Date Reviewed: 04/05/2022 Reviewed by: Racheal Mazariegos LPN - Fully Assessed Reason for Visit: Research [293] Cmt: IRB# [id number] [facility] Study Primary Visit Diagnosis:IRB #[id number] [facility] Novel Predictors Registry [Z00.6] Prescriptions as of 07/14/2022 - ELIQUIS 5 mg tab(s) Take 5 mg by mouth twice daily. - atorvastatin (LIPITOR) 40 mg tablet Take by mouth. - lisinopril (ZESTRIL, PRINIVIL) 5 mg tablet Take by mouth. - metoprolol succinate ER (TOPROL XL) 100 mg Tb24 Take one tablet in the morning and one-half tablet in the evening daily. - IBUPROFEN ORAL as necessary Problem List As Of Date 06/16/2022 Noted Resolved Hypertrophic obstructive cardiomyopathy (HOCM) *04/17/2006 Melanoma [C43.9] 05/06/2010 H/O Malignant melanoma [Z85.820] 07/16/2011 Other lymphedema [I89.0] 11/05/2011 History of coronary artery stent placement [Z95*06/20/2020 Pure hyperglyceridemia [E78.1] 10/08/2016 Personal history of melanoma in-situ [Z86.006] 04/03/2019 Palpitations [R00.2] 04/05/2022 Obstructive sleep apnea syndrome [G47.33] 09/08/2021 Obesity [E66.9] 03/25/2022 Neoplasm of uncertain behavior of skin [D48.5] 11/17/2010 Mitral valve disease [I05.9] 07/31/2010 Hypertension, benign [I10] 10/08/2016 Hyperlipidemia [E78.5] 03/23/2021 Hypertension [I10] 04/05/2022 Medications Discontinued During This Encounter Prescriptions - loratadine (CLARITIN) 10 mg tablet (Discontinued) Take by mouth. Encounter Status:Closed by ROMAIN STEINBERG on 06/16/22 Normal [facility] Absolute lymphocyte counton 10-03-2021 Lymphocytes Auto (Unsp spec) [#/Vol] 3.62 10*3/uL 0.83-4.51 [facility] Work Phone: Basophil percentageon 2021 Basophils/100 WBC (Bld) 0.6 % 0-1 [facility] Work Phone: Bilirubin [Mass/Vol] 0.90 mg/dL 0.20-1.00 [facility] Work Phone: Comment on above: For patients on eltr ombopag therapy, use of Dimension [place] TBIL is not recommended. Chloride [Moles/Vol] 108 mmol/L 98-107 [facility] Work Phone: Cholesterol [Mass/Vol] 112 mg/dL <200 [facility] Work Phone: Comment on above: <200 mg/dL Desirable 200-240 mg/dL Borderline >240 mg/dL High Risk Eosinophils/100 WBC (Bld) 1.8 % 0-5 [facility] Work Phone: Glucose [Mass/Vol] 94 mg/dL 74-106 [facility] Work Phone: Neutrophils (Bld) [#/Vol] 3.6 10*3/uL 2.0-7.7 [facility] Work Phone: Neutrophils/100 WBC (Bld) 45.0 % 47-70 [facility] Work Phone: Potassium [Moles/Vol] 4.6 mmol/L 3.5-5.1 [facility] Work Phone: Protein [Mass/Vol] 6.7 g/dL 6.4-8.2 [facility] Work Phone: Sodium [Moles/Vol] 139 mmol/L 136-145 [facility] Work Phone: Triglyceride [Mass/Vol] 49 mg/dL <199 [facility] Work Phone: Comment on above: The drugs N-Acetylcy steine and Metamizole may falsely depress this assay.Serum Triglycerides Reference Interval Normal <150 mg/dL Borderline high 150 - 199 mg/dL High 200 - 499 mg/dL Very High > or = 500 mg/dL WBC (Bld) [#/Vol] 8.0 10*3/uL 4.4-11.0 [facility] Work Phone: Blood erythrocytes count (nu mber/volume)on 10-03-2021 RBC (Bld) [#/Vol] 5.45 10*6/uL 4.6-6.2 [facility] Work Phone: Blood hemoglobin measurement (mass/volume)on 10-03-2021 Hemoglobin (Bld) [Mass/Vol] 16.1 g/dL 13.0-16.5 [facility] Work Phone: [phone] Blood lymphocytes/100 leukoc yteson 10-03-2021 Lymphocytes/100 WBC (Bld) 45.4 % 19-41 [facility] Work Phone: [phone] Blood monocytes/100 leukocyt eson 10-03-2021 Monocytes/100 WBC (Bld) 6.9 % 0-10 [facility] Work Phone: [phone] Blood platelet mean volumeon 10-03-2021 Platelet mean volume (Bld) [Entitic vol] 10.9 fL 6.2-12.0 [facility] Work Phone: [phone] Determination of erythrocyte mean corpuscular volume (MCV)on 10-03-2021 MCV (RBC) [Entitic vol] 88.1 fL 80-94 [facility] Work Phone: [phone] Hematocrit Auto (Bld) [Volum e fraction]on 10-03-2021 Hematocrit (Bld) [Volume fraction] 48.0 % 40-54 [facility] Work Phone: Laboratory - Chemistry and C hemistry - challengeon 10-03-2021 ALP [Catalytic activity/Vol] 66 U/L 45-117 [facility] Work Phone: [phone] ALT [Catalytic activity/Vol] 55 U/L 16-61 [facility] Work Phone: [phone] CO2 [Moles/Vol] 28.0 mmol/L 21.0-32.0 [facility] Work Phone: [phone] Globulin (S) [Mass/Vol] 3.0 g/dL 2.2-4.2 [facility] Work Phone: [phone] Urea nitrogen/Creatinine [Mass ratio] 16.1 mg/mg 10-20 [facility] Work Phone: [phone] Laboratory - Hematology and Cell countson 10-03-2021 Erythrocyte distribution width (RBC) [Entitic vol] 42.8 fL 35.1-43.9 [facility] Work Phone: [phone] Erythrocyte distribution width (RBC) [Ratio] 13.3 % 11.6-14.6 [facility] Work Phone: [phone] Immature granulocytes/100 WBC (Bld) 0.300 % 0.0-0.9 [facility] Work Phone: [phone] Comment on above: IG% - Immature Granu locytes (promyelocytes, myelocytes and metamyelocytes) > 1% indicates that a LEFT SHIFT is Present. MCH (RBC) [Entitic mass] 29.5 pg 27.0-32.0 [facility] Work Phone: [phone] Nucleated RBC/100 WBC (Bld) [Ratio] 0 % 0-5 [facility] Work Phone: [phone] MCHC Auto (RBC) [Mass/Vol]on 10-03-2021 MCHC (RBC) [Mass/Vol] 33.5 g/dL 32-36 [facility] Work Phone: No Panel Informationon 10-03 Estimated GFR (MDRD) Amer 86 mL/min >60 [facility] Work Phone: [phone] Comment on above: GFR Calc Estimated GFR (MDRD) Non-Af Amer 71 mL/min >60 [facility] Work Phone: Comment on above: Non- GFR Calc Prostate Specific Antigen Screen 0.46 ng/mL 0.00-4.00 [facility] Work Phone: [phone] Comment on above: This test was perfor med using the TPSA assay method for the[facility]. Values obtained with differentassay methods cannot be used interchangably.When changing PSA assays in the course of monitoring apatient, additional sequential testing should be carriedout to confirm baseline values. Platelets bldon 10-03-2021 Platelets (Bld) [#/Vol] 178 10*3/uL 150-450 [facility] Work Phone: [phone] Serum or plasma albumin tanisha urement (mass/volume)on 10-03-2021 Albumin [Mass/Vol] 3.7 g/dL 3.2-5.0 [facility] Work Phone: [phone] Serum or plasma albumin/glob ulin mass ratioon 10-03-2021 Albumin/Globulin [Mass ratio] 1.2 {ratio} 0.9-2.4 [facility] Work Phone: Serum or plasma calcium tanisha urement (mass/volume)on 10-03-2021 Calcium [Mass/Vol] 8.3 mg/dL 8.5-10.1 [facility] Work Phone: Serum or plasma cholesterol in HDL measurement (mass/volume)on 10-03-2021 Cholesterol in HDL [Mass/Vol] 48 mg/dL >40 [facility] Work Phone: Comment on above: The drugs N-Acetylcy steine and Metamizole may falsely depress this assay. Reference Range HDL <40 mg/dL Low HDL Cholesterol HDL >or= 60 mg/dL High HDL Cholesterol Serum or plasma cholesterol in VLDL measurement (mass/volume)on 10-03-2021 Cholesterol in VLDL [Mass/Vol] 10 mg/dL 5-40 [facility] Work Phone: [phone] Serum or plasma creatinine m easurement (mass/volume)on 10-03-2021 Creatinine [Mass/Vol] 1.12 mg/dL 0.70-1.30 [facility] Work Phone: Comment on above: The validity of the calculated GFR & GFRAA in patients over 70 years has not been determined. Clinical correlation is essential. Serum or plasma low density lipoprotein (LDL) cholesterol measurement (mass/volume)on 10-03-2021 Cholesterol in LDL [Mass/Vol] 54 mg/dL 0-130 [facility] Work Phone: Serum or plasma urea nitroge n measurement (mass/volume)on 10-03-2021 Urea nitrogen [Mass/Vol] 18 mg/dL 7-18 [facility] Work Phone: Thin prep Papanicolaou smear with manual screeningon 10-03-2021 Thin prep Papanicolaou smear with manual screening 32 U/L 15-37 [facility] Work Phone: Thin prep Papanicolaou smear with manual screening 3 5-15 [facility] Work Phone: Electrocardiogram 12 Leadon 08-06-2021 Electrocardiogram 12 Lead Ventricular Rate 54 Atrial Rate 54 P-R Interval 168 QRS Duration 112 Q-T Interval 474 QTC Calculation(Bazett) 449 P [place] 51 R [place] -16 T [place] 100 QRS Count 9 Q Onset 215 P Onset 131 P Offset 191 T Offset 452 QTC Fredericia 457 Diagnosis Class Abnormal Diagnosis Sinus bradycardia Incomplete right bundle branch block T wave abnormality, consider inferolateral ischemia Abnormal ECG When compared with ECG of 09-MAY-2021 06:12, T wave inversion now evident in Inferior leads Confirmed by LISA NEWTON MD ([id number]) on 08/06/2021 10:03:08 PM Normal [facility] No Panel Informationon 08-06 [email or web address] [email or web address]?R etrieveTestByDateTime?Rima usqKC=[id number]&Date=&Time=09%3a08%3a14%3a 00&TestType=ECG&Site=1&Out putType=PDF&Ext=PDF [facility] Work Phone: Sinus bradycardia [facility] Work Phone: Abnormal [facility] Work Phone: [phone] [facility] Work Phone: [phone] [facility] Work Phone: [phone] [facility] Work Phone: [phone] [facility] Work Phone: [phone] [facility] Work Phone: [phone] 1 [facility] Work Phone: 100 1 [facility] Work Phone: -[phone] 1 [facility] Work Phone: 51 1 [facility] Work Phone: [phone] [facility] Work Phone: [phone] [facility] Work Phone: 112 1 [facility] Work Phone: 168 1 [facility] Work Phone: [phone] [facility] Work Phone: Office Visit (Cardiology)on 08-06-2021 Follow-up visit Diagnoses/Problems Assessed History of implantable cardiac defibrillator (ICD) (V45.02) (Z95.810) Hypertrophic cardiomyopathy (425.18) (I42.2) AF (paroxysmal atrial fibrillation) (427.31) (I48.0) Orders AF (paroxysmal atrial fibrillation) Electrocardiogram 12 Lead; Status:Active; Requested for:06Aug2021; Patient Instructions It was so nice to see you today! Your ECG looks great. I am please to hear you are feeling well. Please continue with your current medications including Eliquis. Your CHADSVASc (stroke risk) scoring warrants anticoagulation as well as the hx of Hypertrophic cardiomyopathy and atrial fibrillation together makes this even higher. Continue with healthy lifestyle modifications we discussed including weight loss, healthy diet, exercise/walking 30min daily 5 x week, BP control, limit alcohol, sleep apnea treatment if applicable, stable blood sugars. Follow up with Dr. Noguera Follow up with us as needed for recurrence of arrhythmia Discussed in detail with collaborating physician Dr. Beck Chief Complaint CARLOS BRIONES is being seen for a 3 month follow-up of atrial fibrillation and s/p PVI on 05/08/21 by Kiran. Adult Risk Screening There are no spiritual/cultural practices/values/needs that are important to know Initial Fall Risk Screening: The patient is not using an assistive device. Living Will. Living Will: No living will on file. Healthcare POA: No healthcare proxy on file. Domestic Violence Screen: Does not feel threatened or abused physically, emotionally or sexually. Do you feel UNSAFE? The patient feels safe in the home. History of Present Illness OUTPATIENT CONSULTATION: Cardiac Electrophysiology DOS: 04/09/21 REASON: AF I had a pleasure seeing Carlos Briones. He is a 56 year old male with: 1. HTN 2. Palpitations 3. Hypertrophic Cardiomyopathy - Diagnosed 16 years ago. MRI in April of 2014 showed EF of 80% basal , inferoseptal and apical thickening. Highest thickness 2 cm. s/p ICD in 2014 for primary prevention (strong family history of sudden cardiac ). ECHO 01/2021 EF of 75%. No gradient is reported. 4. CAD - s/p PCI mid LCx (JUN 2020) on Brillinta. Catheterization was done as part of the work up for atrial fibrillation 5. Tachyarrhythmia / AF - started having the AF 1 and a half years ago. He has it very frequently now. Documented with ECG ([place] and has obtained a rhythm strip from them). Episodes last from 2-3 hours to 10-13 hours. He is highy symptomatic. Already on a maximal dose of Metoprolol. Underwent PVI on 05/08/21 by Kiran without complications TODAY Routine 3mo s/p AF ablation office visit. He is feeling overall well. Denies any recurrence of his AF symptoms. He states his recent device check did not show any arrhythmia. He denies cp, sob, palpitations, LH/dizziness, orthopnea, edema, fever/chills, bleeding. He is trying to do more walking/swimming for exercise. He admits to some snoring and his saying he does breath funny while sleeping, never been tested for sleep apnea. ECG 08/06/21 SB 54 bpm, iRBBB QRS 112ms, tw abn Active Problems Problems CAD, multiple vessel (414.00) (I25.10) History of coronary artery stent placement (V45.82) (Z95.5) History of implantable cardiac defibrillator (ICD) (V45.02) (Z95.810) Hyperlipidemia (272.4) (E78.5) Hypertension (401.9) (I10) Hypertrophic cardiomyopathy (425.18) (I42.2) Melanoma (172.9) (C43.9) Palpitation (785.1) (R00.2) Tachyarrhythmia (785.0) (R00.0) Surgical History Problems History of Axillary lymphadenectomy History of Cardiac catheterization with stent placement PCI - LIONEL- MID LCx W/ 2.5 X 22mm Resolute stent History of Knee arthroscopy Current Meds Medication NameInstruction Atorvastatin Calcium 40 MG Oral TabletTAKE 1 TABLET AT BEDTIME. Eliquis 5 MG Oral TabletTake 1 tablet twice daily Lisinopril 5 MG Oral TabletTAKE 1 TABLET DAILY. Metoprolol Succinate ER 100 MG Oral Tablet Extended Release 24 HourTAKE 1 TABLET BY MOUTH DAILY Allergies Medication No Known Drug Allergies Recorded By: Irma Burgos; 04/09/2021 9:09:14 AM Family History Father Family history of cardiac disorder (V17.49) (Z82.49) Family history of coronary artery disease (V17.3) (Z82.49) Family history of sudden cardiac (SCD) (V17.41) (Z82.41) Father 65 y/o 1st [place] early 40's Uncle 41 y/o Grandfather 82 y/o Paternal Grandfather Family history of coronary artery disease (V17.3) (Z82.49) Family history of sudden cardiac (SCD) (V17.41) (Z82.41) Father 65 y/o 1st [place] early 40's Uncle 41 y/o Grandfather 82 y/o Social History Problems Never a smoker Review of Systems Constitutional: not feeling tired, not feeling poorly, no fever and no chills. Eyes: no eyesight problems. ENT: no hearing loss and no nosebleeds. Cardiovascular: no intermittent leg claudication, no chest pain, no tightness or heavy pressure, no shortn (more content not included)... Normal [employer] Tobacco Screening.on 022 Fall risk assessment a) No falls within the last year [facility] Work Phone: Tobacco use status CP b) No [facility] Work Phone: ACT-HIGH RANGEon 05-08-2021 ACT-HIGH RANGE 275 SECONDS High 96 - 152 [facility] Comment on above: Result Comment: Note new reference range as of 07/21/2018. Target ACT range will vary based on the patient population, clinical status, and surgical intervention occurring. Performed By: #### A CTP #### [facility] [id number] [place] [address] ACT-HIGH RANGE 306 SECONDS High 96 - 152 [facility] Comment on above: Result Comment: Note new reference range as of 07/21/2018. Target ACT range will vary based on the patient population, clinical status, and surgical intervention occurring. Performed By: #### A CTP ####[id number] [place] [address] ACT-HIGH RANGE 351 SECONDS High 96 - 152 [facility] Comment on above: Result Comment: Note new reference range as of 07/21/2018. Target ACT range will vary based on the patient population, clinical status, and surgical intervention occurring. Performed By: #### A CTP ####[id number] [place] [address] ACT-HIGH RANGE 343 SECONDS High 96 - 152 [facility] Comment on above: Result Comment: Note new reference range as of 07/21/2018. Target ACT range will vary based on the patient population, clinical status, and surgical intervention occurring. Performed By: #### A CTP #### [facility] [id number] [place] [address] ACT-HIGH RANGE 380 SECONDS High 96 - 152 [facility] Comment on above: Result Comment: Note new reference range as of 07/21/2018. Target ACT range will vary based on the patient population, clinical status, and surgical intervention occurring. Performed By: #### A CTP #### [facility] [id number] [place] [address] ACT-HIGH RANGE 310 SECONDS High 96 - 152 [facility] Comment on above: Result Comment: Note new reference range as of 07/21/2018. Target ACT range will vary based on the patient population, clinical status, and surgical intervention occurring. Performed By: #### A CTP #### [facility] [address] [place] [address] ACT-HIGH RANGE 368 SECONDS High 96 - 152 [facility] Comment on above: Result Comment: Note new reference range as of 07/21/2018. Target ACT range will vary based on the patient population, clinical status, and surgical intervention occurring. Performed By: #### A CTP #### [facility] [address] [place] [address] Admission Risk Screen - Adul ton 05-08-2021 Admission Risk Screen - Adult Allergies: Allergies: cefadroxil: Rash Patient Verification: New W ID Band Applied in my Departmentyes Patient Identity Verified Bypatient ID Band FULL Name, include Middle, spelling matches patient's ID used for verificationyes ID Band Matches Patient ID used for Verficationyes ID Band MRN Matches EMR MRNyes Visitor Restriction: Coronavirus Visitor Restriction: Reasonable restrictions to in-person visitors will be observed due to current coronavirus pandemic. Travel History: COVID-19 Screening Completedno exposure or symptoms Travel or Exposure Past 30 DaysNO travel to International locations in the past 30 days Ebola AlertFor Ebola-like Symptoms: Isolate Patient and Notify Provider/Firmware Software Verification Engineer For Contact: Notify Provider/Firmware Software Verification Engineer Advance Directive: Advance Directive/DNRno Advance Directive Information Givenpatient/family declined Cooper Fall Screen: History of falling (immediate or previous)no (0) Secondary Diagnosisyes (15) Intravenous Therapy/ Heparin/Saline Lockyes (20) Gait/Transferringnormal/be drest/wheelchair (0) Ambulatory Aidsnone/bedrest/nurse assist (0) Mental Statusoriented to own ability (0) Score: Low risk (<25). Moderate risk (25-44). High risk (>44).35 Cooper InterventionsHIGH INTERVENTIONS *Low and Moderate Interventions Plus: * supervised toileting at all times Family Violence Screen: Are you or have you been threatened or abused physically, emotionally, or sexually by anyoneno Do you feel UNSAFE going back to the place where you are livingno Clinical assessment: Are there any apparent signs of injuries/behaviors that could be related to abuse/neglectno Social Service Consult for abuse/neglect needed this visitno Functional Screen: Functional Screen: In the recent/past 2-4 weeks, patient or family have noticedno issues that require a speech/language consult at this time AM-PAC- Basic Mobility/Daily Activity: Patient baseline bedboundno Learning Assessment (Patient): Patient is Able to be Assessed for Learningyes Factors Influencing Readiness to Learnacuteness of illness Factors that Impact Ability to Learnnone Devices/Methods Used to Communicatecommunication board, glasses Learning Preferenceswritten material; video; verbal instruction; pictorial; individual instruction; computer/internet; audio; group instruction; skill demonstration Cultural Considerationsnone Developmental Considerationsnone Anabaptism Considerationsreligious considerations Zoroastrianism Learning Assessment (Other Learner): Other learner availableno Depression Screen: During the past month, have you often been bothered by feeling down, depressed or hopelessno During the past month, have you often had little interest or pleasure in doing thingsno Have you had any thoughts of harming anyone elseno Blachly Suicide: Risk Screen Not Applicable/Able to Answerable to be screened In the Past Month: Have you wished you were or could go to sleep and not wake upno In the Past Month: Have you had any actual thoughts of killing yourselfno Lifetime: Have you ever done, started to do, or prepared to do anything to end your lifeno Blachly Suicide Risknegative Adult Nutrition Screen: Have you recently lost weight without tryingno Have you been eating poorly because of a decreased appetiteno Malnutrition Screening Tool Score0 Malnutrition Screening Tool RiskMST = 0 or 1 Not at risk. Eating well with little or no weight loss Nutrition Consult needed this visitno Can Patient Participate in Room Serviceyes Patient requires Paper Dishes/Plastic Utensilsno Pain Screen: Pain Scalenumerical 0-10 Pain Scale Educationteaching provided Current Pain Level6 = Moderate Acceptable Pain Level2 = Mild Expression of Pain (nonverbal)verbalization Chronic Painno Spiritual Screen: Are there any cultural, spiritual, caodaism practices/values/needs that are important for us to knowno CAGE: Is this an injured patient at a Trauma Center ([facility]/Vonnie/Marko/Moncho/Juan Luis Griffith/Swati): no Vaccinations: Vaccination - Influenza Vaccination Screen: Is it flu season (between and July 16)Yes Screening for identified contraindications to influenza vaccinationpatient already received vaccine this season Vaccination - Pneumonia Vaccination Screen: Patient has received a previous pneumonia vaccine:no/unknown... Immunocompetent persons with underlying chronic conditions or reside in joint terminal attack controller care facilitieschronic heart disease (excluding hypertension) Persons with Functional or Anatomic Asplenianone of these conditions Immunocompromised Personsnone of these conditions Pneumonia vaccine NOT indicated due to:patient/caregiver refusal at this time Nicko: Skin - Nicko Scale: Nicko: Sensory Perception (response to environment)(3) slightly limited Nicko: Moisture (degree skin (more content not included)... Normal [facility] Discharge [id number] Discharge Profile2 Discharge Orders: Anticipated Discharge Date: Anticipated Discharge [id number] Problem List: Prelim Disch Dx: Atrial fibrillation: Catalog Name: Unspecified atrial fibrillation DNAR: Code Status at Discharge: Full Code Activity: May not drive for 2 day(s). Diet: Dietheart healthy Additional Orders: Additional Instructions * You will need to continue blood thinner (Eliquis) until instructed otherwise. It is important not to interrupt blood thinner for any reason (other than an emergency) during the 1st month after ablation. * You will be on Pantoprazole (a heartburn medicine) for 4 weeks to protect the esophagus as it can become irritated with ablation. It is very important that you take this medication. * All other medications will generally remain the same unless you are told otherwise. Resume taking your home medications today as listed on the discharge instructions. * In the first week post-ablation you should take it easy. No heavy lifting or heavy exercise, no treadmill. You can use the stairs if needed but go slowly and minimize the number of times up and down. * Some minor bruising is common at each groin access site with minor soreness as if you had banged the area. Bruising may occasionally be seen to extend down the leg. This is normal as is an occasional small quarter sized bump in the area. If larger swelling or more significant pain occurs at the area, please contact the office or go the nearest Emergency Room. * You may have some minor chest pain for the next week or so. The pain will often worsen with a deep breath and be better when leaning forward. This is pericardial chest pain from the ablation and is generally not of concern. It should resolve within a week although it might increase for a day or so after the ablation. * If you develop unexplained fevers exceeding 100 degrees anytime within the first 3 weeks post-ablation, you need to contact the office. Low grade fevers of around 99 degrees are common in the first day or so post-ablation. * Atrial fibrillation (AFib) can recur in all patients who undergo this ablation for up to 4-8 weeks post-ablation. The ablation itself can cause inflammation (pericarditis) in the atria and this can cause AFib. Some patients will actually experience an increased amount of atrial arrhythmia early after ablation. Approximately 1/3 of patients will have this early recurrence of AFib. Medications should be continued and your heart rate controlled. Nothing else needs be done initially except waiting as in many cases these episodes of AFib will prove self limited. * Continue to follow up with your primary surgeon's assistant and primary care physician. Call Provider If (Homegoing Patients): Breathing faster than normal. Fever of 100.4 F (38 C) or higher. Chills. Any new concerning symptoms. Passing out. [facility] Interventional: Patient Instructions, Next 24 hours: DO NOT drive a car, operate machinery or power tools. It is recommended that a responsible adult be with you for the first 24 hours. DO NOT drink any alcoholic drinks or take any non-prescriptive medications that contain alcohol for the first 24 hours. DO NOT make any important decisions for the first 24 hours. Activity: You are advised to go directly home from the hospital. DO NOT lift anything heavier than 10 pounds for one week, this allows for proper healing of the groin. No excessive exercise or treadmill use for one week. You may walk and do stairs, slowly. No sexual activities for 24 hours after you arrive home. Wound Care: If slight bleeding should occur at site, lie down and have someone apply firm pressure just above the puncture site for 5 minutes. If it continues or is profuse, call 911. Always notify your doctor if bleeding occurs. Keep site clean and dry. Let air dry or you may use a simple bandaid. Gently cleanse the puncture site in your groin with soap and water only. You may experience some tenderness, bruising or minimal inflammation. If you have any concerns, you may contact the [facility] or if any of these symptoms become excessive, contact your surgeon's assistant or go to the emergency room. No tub baths, soaking, or swimming for one week. May shower the next day after your procedure. Other Instructions: If you have any questions about the effects of the sedative drugs or groin care, call the physician who performed your procedure. Provider FINAL REVIEW of Orders: Final Review: Final Review of Medication Reconciliation and Orders Completedby Physician Reviewing ProviderJuan José Begum MD (Fellow) at 09-May-2021 08:32:28 Appointments: Follow-Up Appointment 01: Physician/Dept/ServiceShani encinas physician Reason for ReferralFollow up Call to Schedule in2 weeks Follow-Up Appointment 02: Physician/Dept/ServiceDr Garrett Henry (Cardi (more content not included)... Normal [facility] Order Reconciliationon 05-08 Order Reconciliation Page 1 Admission Reconciliation Document Reconciliation Type: Admission requested on behalf of Hugo Ulloa (Fellow) done by Hugo Ulloa ( (Fellow)) Admission - Reconciliation: 08-May-2021 17:56 by: Hugo Ulloa ( (Fellow)) Home MedicationsEnteredLast Dose TakenReconciled with current Order Reconciliation Comment/ Additional Information atorvastatin 40 mg oral tablet 1 tab(s) orally once a [id number]-May-2021 PM Atorvastatin Tablet (LIPITOR)DOSE = 40 mg Oral Daily atorvastatin 40 mg oral tablet continued as the inpatient order Atorvastatin Brilinta (ticagrelor) 90 mg oral tablet 1 tab(s) orally 2 times a day [id number] AM Ticagrelor Maintenance Dose Tablet (BRILINTA)DOSE = 90 mg Oral 2 Times a DayClinician Notes: Administer first Maintenance dose 12 hours after the Loading doseBrilinta (ticagrelor) 90 mg oral tablet continued as the inpatient order Ticagrelor Maintenance Dose Eliquis 5 mg oral tablet 1 tab(s) orally 2 times a [id number] Blood in Urine, Monitor for Eliquis 5 mg oral tablet continued as the inpatient order Blood in Urine, Monitor for; Eliquis 5 mg oral tablet continued as the inpatient order Bleeding, Monitor for; Eliquis 5 mg oral tablet continued as the inpatient order Apixaban Eliquis 5 mg oral tablet 1 tab(s) orally 2 times a [id number] Bleeding, Monitor for Eliquis 5 mg oral tablet continued as the inpatient order Blood in Urine, Monitor for; Eliquis 5 mg oral tablet continued as the inpatient order Bleeding, Monitor for; Eliquis 5 mg oral tablet continued as the inpatient order Apixaban Eliquis 5 mg oral tablet 1 tab(s) orally 2 times a [id number] Apixaban Tablet (ELIQUIS)DOSE = 5 mg Oral Every 12 HoursEliquis 5 mg oral tablet continued as the inpatient order Blood in Urine, Monitor for; Eliquis 5 mg oral tablet continued as the inpatient order Bleeding, Monitor for; Eliquis 5 mg oral tablet continued as the inpatient order Apixaban lisinopril 5 mg oral tablet 1 tab(s) orally once a [id number] AM Reviewed and Held metoprolol tartrate 100 mg oral tablet 1 tab(s) orally 2 times a day [id number] AM Metoprolol Tartrate Tablet (LOPRESSOR)DOSE = 100 mg Oral 2 Times a Daymetoprolol tartrate 100 mg oral tablet continued as the inpatient order Metoprolol Tartrate pantoprazole 40 mg oral delayed release tablet 1 tab(s) orally once a day 08-May-2021 Reviewed and Held Additional Current Orders Pantoprazole Enteric Coated Tablet (PROTONIX)DOSE = 40 mg Oral Daily Normal [facility] Order Reconciliation Page 1 Discharge Reconciliation Document Reconciliation Type: Discharge requested on behalf of Hugo Ulloa (Fellow) done by Hugo Ulloa ( (Fellow)) Discharge - Reconciliation: 08-May-2021 17:54 by: Hugo Ulloa ( (Fellow)) Home Medications EnteredHOME MEDICATIONS AT DISCHARGE DateReconciliation Comment/ Additional Information atorvastatin 40 mg oral tablet 1 tab(s) orally once a day 08-May-2021 10:42 atorvastatin 40 mg oral tablet 1 tab(s) orally once a day 08-May-2021 10:42 atorvastatin 40 mg oral tablet is continued as atorvastatin 40 mg oral tablet Brilinta (ticagrelor) 90 mg oral tablet 1 tab(s) orally 2 times a day 08-May-2021 10:42 Brilinta (ticagrelor) 90 mg oral tablet 1 tab(s) orally 2 times a day 08-May-2021 10:42 Brilinta (ticagrelor) 90 mg oral tablet is continued as Brilinta (ticagrelor) 90 mg oral tablet Eliquis 5 mg oral tablet 1 tab(s) orally 2 times a day 08-May-2021 10:42 Eliquis 5 mg oral tablet 1 tab(s) orally 2 times a day 08-May-2021 10:42 Eliquis 5 mg oral tablet is continued as Eliquis 5 mg oral tablet lisinopril 5 mg oral tablet 1 tab(s) orally once a day 08-May-2021 10:42 lisinopril 5 mg oral tablet 1 tab(s) orally once a day 08-May-2021 10:42 lisinopril 5 mg oral tablet is continued as lisinopril 5 mg oral tablet metoprolol tartrate 100 mg oral tablet 1 tab(s) orally 2 times a day 08-May-2021 10:41 metoprolol tartrate 100 mg oral tablet 1 tab(s) orally 2 times a day 08-May-2021 10:41 metoprolol tartrate 100 mg oral tablet is continued as metoprolol tartrate 100 mg oral tablet Current OrdersDateHOME MEDICATIONS AT DISCHARGE DateReconciliation Comment/ Additional Information Pantoprazole Enteric Coated Tablet (PROTONIX)DOSE = 40 mg Oral Daily 08-May-2021 17:53 pantoprazole 40 mg oral delayed release tablet 1 tab(s) orally once a day 08-May-2021 17:53 Prescription is created for pantoprazole 40 mg oral delayed release tablet All Active Home Medications at time of Discharge Reconciliation: 08-May-2021 17:54 atorvastatin 40 mg oral tablet 1 tab(s) orally once a day Brilinta (ticagrelor) 90 mg oral tablet 1 tab(s) orally 2 times a day Eliquis 5 mg oral tablet 1 tab(s) orally 2 times a day lisinopril 5 mg oral tablet 1 tab(s) orally once a day metoprolol tartrate 100 mg oral tablet 1 tab(s) orally 2 times a day pantoprazole 40 mg oral delayed release tablet 1 tab(s) orally once a day Normal [facility] Patient Profile - Adult v2on 05-08-2021 Patient Profile - Adult v2 Profile: Initial Info: How to be AddressedBernie Spoken Language PreferredEnglish Source of Informationpatient Stated Reason for AdmissionAfib ablation Wants Family/Rep Notified of Admissionyes, primary contact Notify PCPnotify PCP Informed of Patient Visiting Rightsyes Arrived FromEP Patient Belongingsremains with patient Patient Belongings Remaining with Patientcell phone/electronics; clothing Medications Brought to Hospitalno General Health: Weight in kg104.3 kilogram(s)(1) Weight in tjc672.9 pound(s) Weight Methodactual (measured) (1) Scale Typestanding (1) Height in cm182.8 centimeter(s) Height in feet6 feet(1) Height in inches0 inch(es)(1) Height Methodstated (1) BMI (kg/m2)31.212 square meter RSP Based Care: How would you like to participate in your carekeep patient informed What is the number one concern for you during this hospitalizationgoing home and stopping afib occurence What is the most important thing we can do to support you during this hospitalizationkeep patient comfortable Is there anything we need to know to best care for youno comment Substance: Smoking Statusnever smoker Alcohol Useoccasionally Health Mgmt: Symptoms/Conditions Managed at Homecardiovascular Cardiovascular Symptoms/Conditionsdysrhyt hmia Cardiovascular Managementmanaged Relationship/Environ: Resource/Environmental Concernsnone Primary Source of Support/Comfortspouse Lives Withspouse Living Arrangementshouse Services Anticipated at Transitionnone Anticipated Transition Tohome Significant IndicatorsComplete Information Review: Allergies, Home Meds and Significant Events have been Reviewed and Verified with Patient/Familyyes ALLERGY, INTOLERANCE, ADVERSE EVENT: Allergies: cefadroxil: Drug, Rash, Active Electronic Signatures: Chip Linares (ROSEANN) (Signed 08-May-2021 21:30) Authored: Initial Info, General Health, RSP Based Care, Substance, Health Mgmt, Relationship/Environ, Additional Information Last Updated: 08-May-2021 21:30 by Chip Linares (ROSEANN) References: 1. Data Referenced From 1. Vital Signs 08-May-2021 21:10 Normal [facility] Office Visit (Cardiology)on 04-09-2021 Follow-up visit Diagnoses/Problems Assessed CAD, multiple vessel (414.00) (I25.10) Hypertension (401.9) (I10) Hypertrophic cardiomyopathy (425.18) (I42.2) Tachyarrhythmia (785.0) (R00.0) Orders SocHx: Never a smoker Tobacco Use Screening; Status:Complete; Done: [id number] Chief Complaint CARLOS BRIONES is being seen for an initial evaluation of atrial fibrillation, cardiomyopathy and Tachyarrhythmia. Adult Risk Screening Initial Fall Risk Screening: CARLOS has not fallen in the last 6 months. CARLOS does not have a fear of falling. He does not need assistance with sitting, standing or walking. Does not need assistance walking in his home. He does not need assistance in an unfamiliar setting. The patient is not using an assistive device. Pain Scale: On a scale of 0 to 10, the patient rates the pain at 0. Advance directives: Living Will: No living will on file. Healthcare POA: No healthcare proxy on file. Declaration of Mental Health Treatment: No mental health treatment on file. Tobacco Screening: CARLOS does not use tobacco. Domestic Violence Screen: Does not feel threatened or abused physically, emotionally or sexually. Do you feel UNSAFE? The patient feels safe in the home. Depression/Suicide Screening: During the past 2 weeks, the patient has not felt down, depressed or hopeless. During the past 2 weeks, the patient has not felt little interest or pleasure in doing things. He does not have a risk of suicide. He has not had thoughts of harming others. Single alcohol screening question: Patient Declined/Screening not indicated. Single substance abuse screening question: Patient Declined/Screening not indicated. Procedure or Sedation Areas: Not Applicable Nutrition Screening: In the past month, there was not a day when I or anyone in my family went hungry because there was not enough food. Patient Education: The patient denies that they or the person with them has problems with hearing, speaking, seeing, moving around or learning The patient is comfortable filling out medical forms. Rey Learner(s) are identified by the patient as person(s) most likely to participate in providing care, such as managing medications or taking them to doctors? appointments. Name of Rey Learner: Shane. Primary Language for learning: Yemeni. Relation: Spouse. History of Present Illness OUTPATIENT CONSULTATION: Cardiac Electrophysiology DOS: 04/09/21 REASON: AF REFERRING PHYSICIAN: I had a pleasure seeing Carlos Briones. He is a 56 year old with: 1. HTN 2. Palpitations 3. Hypertrophic Cardiomyopathy - Diagnosed 16 years ago. MRI in April of 2014 showed EF of 80% basal , inferoseptal and apical thickening. Highest thickness 2 cm. s/p ICD in 2014 for primary prevention (jasmynn family history of sudden cardiac ). ECHO 01/2021 EF of 75%. No gradient is reported. 4. CAD - s/p PCI mid LCx (JUN 2020) on Brillinta. Catheterization was done as part of the work up for atrial fibrillation 5. Tachyarrhythmia / AF - started having the af 1 to 1and a half years ago. He has it very frequently now. Documented with ECG ([place] and has obtained a rhythm strip from them). Episode last from 2-3 hours to 10-13 hours. He is higly symptomatic. Already on a maximal dose of Metoprolol. Surgical History Problems History of Axillary lymphadenectomy History of Cardiac catheterization with stent placement PCI - [facility]ION[facility]- MID LCx W/ 2.5 X 22mm Resolute stent History of Knee arthroscopy Current Meds Medication NameInstruction Atorvastatin Calcium 40 MG Oral TabletTAKE 1 TABLET AT BEDTIME. Brilinta 90 MG Oral TabletTAKE 1 TABLET TWICE DAILY. Eliquis 5 MG Oral TabletTake 1 tablet twice daily Lisinopril 5 MG Oral TabletTAKE 1 TABLET DAILY. Metoprolol Succinate ER 100 MG Oral Tablet Extended Release 24 HourTAKE 1 TABLET BY MOUTH DAILY Allergies Medication No Known Drug Allergies Recorded By: Irma Burgos; 04/09/2021 9:09:14 AM Family History Father Family history of cardiac disorder (V17.49) (Z82.49) Family history of coronary artery disease (V17.3) (Z82.49) Family history of sudden cardiac (SCD) (V17.41) (Z82.41) Father 65 y/o 1st [place] early 40's Uncle 41 y/o Grandfather 82 y/o Paternal Grandfather Family history of coronary artery disease (V17.3) (Z82.49) Family history of sudden cardiac (SCD) (V17.41) (Z82.41) Father 65 y/o 1st [place] early 40's Uncle 41 y/o Grandfather 82 y/o Social History Problems Never a smoker Review of Systems Constitutional: not feeling tired. Eyes: no eyesight problems. ENT: no hearing loss and no nosebleeds. Cardiovascular: no intermittent leg claudication and as noted in HPI. Respiratory: no chronic cough and no shortness of breath. Gastrointestinal: no change in bowel habits and no blood in stools. Genitourinary: no urinary frequency and no hematuria. Skin: no skin rashes. Neurological: no seizures and no frequent fal (more content not included)... Normal [facility] LIPIDon 03-23-2021 CHOL 117 MG/dL Normal 0-199 [facility] Comment on above: Performed By: #### L 500.22306, L500.20715 #### [facility] [address] [id number] Cholesterol in HDL [Mass/Vol] 52 mg/dL Normal GREATER THAN 40 [facility] Comment on above: Result Comment: Rima ents receiving Metamizole prior to venipuncture, may have falsely depressed results. Performed By: #### L 500.70547, L500.06177 #### [facility] [address] [place] [address] Cholesterol in LDL [Mass/Vol] 45 mg/dL Normal [facility] Comment on above: Result Comment: ___C HOLESTEROL/HDL RATIO RISK___ CHD RISK = Total CHOL LDL HDL (CHOL/HDL) Recommended <200 <130 >40 <3.4 Borderline 200-239 130-159 3.4-4.99 High >240 >160 >5.0 Performed By: #### L 500.45420, L500.11807 #### [facility] [address] [place] [address] Triglyceride [Mass/Vol] 98 mg/dL Normal 30-149 [facility] Comment on above: Result Comment: Rima ents receiving either N-Acetylcysteine (NAC) or Metamizole prior to venipuncture, may have falsely depressed results. Performed By: #### L 500.05571, L500.35398 #### [facility] [address] [place] [address] LIVERon 03-23-2021 Albumin [Mass/Vol] 4.0 g/dL Normal 3.2-5.0 [facility] Comment on above: Performed By: #### L 500.17872, L500.75403 #### [facility] [address] [place] [address] Albumin/Globulin [Mass ratio] 1.5 {ratio} Normal 0.8-2.0 [facility] Comment on above: Performed By: #### L 500.71839, L500.25786 #### [facility] [place] [address] ALK PHOS 90 U/L Normal 45-117 [facility] Comment on above: Performed By: #### L 500.93725, L500.34078 #### [facility] [place] [address] ALT [Catalytic activity/Vol] 30 U/L Normal 13-61 [facility] Comment on above: Result Comment: RESU LTS MAY BE FALSELY DEPRESSED AFTER THE ADMINISTRATION OF SULFASALAZINE AND/OR SULFAPYRIDINE. Performed By: #### L 500.66297, L500.92750 #### [facility] [address] [place] [address] AST [Catalytic activity/Vol] 27 U/L Normal 8-34 [facility] Comment on above: Result Comment: RESU LTS MAY BE FALSELY DEPRESSED AFTER THE ADMINISTRATION OF SULFASALAZINE AND/OR SULFAPYRIDINE. Performed By: #### L 500.36829, L500.87120 #### [facility] [address] [place] [address] BILI DIRECT 0.4 MG/DL High 0.00-0.36 [facility] Comment on above: Result Comment: NOTE NEW NORMAL RANGE DUE TO REAGENT CHANGE Performed By: #### L 500.46227, L500.99895 #### [facility] [address] [place] [address] BILI TOTAL 1.00 MG/DL Normal 0.2-1.0 [facility] Comment on above: Performed By: #### L 500.02955, L500.64333 #### [facility] [address] [place], [place] [id number] Globulin (S) [Mass/Vol] 2.6 g/dL Normal 2.2-4.2 [facility] Comment on above: Performed By: #### L 500.30757, L500.15149 #### [facility] [address] [place], [place] [id number] Protein [Mass/Vol] 6.6 g/dL Normal 6.0-8.5 [facility] Comment on above: Performed By: #### L 500.95173, L500.45262 #### [facility] [address] [place], [place] [id number] CBC W/DIFFon 09-17-2020 BASO ABS 0.10 K/CU MM Normal 0-0.2 [facility] Comment on above: Performed By: #### L 200.79650 #### [facility] [address] [place] [address] Basophils/100 WBC (Bld) 0.8 % Normal 0-2 [facility] Comment on above: Performed By: #### L 200.80580 #### [facility] [address] [place] [address] EOS ABS 0.30 K/CU MM Normal 0-0.5 [facility] Comment on above: Performed By: #### L 200.37985 #### [facility] [address] [place] [address] Eosinophils/100 WBC (Bld) 3.2 % Normal 0-5 [facility] Comment on above: Performed By: #### L 200.57127 #### [facility] [address] [place] [address] Erythrocyte distribution width (RBC) [Ratio] 13.2 % Normal 11-14.5 [facility] Comment on above: Performed By: #### L 200.37114 #### [facility] [address] [place] [address] Hematocrit (Bld) [Volume fraction] 47.0 % Normal 41.0-53.0 [facility] Comment on above: Performed By: #### L 200.99381 #### [facility] [address] [place], [place] [id number] Hemoglobin (Bld) [Mass/Vol] 15.9 g/dL Normal 13.5-17.5 [facility] Comment on above: Performed By: #### L 200.25172 #### [facility] [address] [place] [address] IMMATR GRAN ABS 0.00 K/CU MM Normal Less than 2 [facility] Comment on above: Performed By: #### L 200.99720 #### [facility] [address] [place] [address] IMMATURE GRAN % 0.3 % Normal Less than 2 [facility] Comment on above: Performed By: #### L 200.51507 #### [facility] [address] [place] [address] LYMPH ABS 3.70 K/CU MM Normal 0.9-4.4 [facility] Comment on above: Performed By: #### L 200.50985 #### [facility] [address] [place] [address] Lymphocytes/100 WBC (Bld) 41.2 % High 20-40 [facility] Comment on above: Performed By: #### L 200.15468 #### [facility] [address] [place] [address]# [phone] MCHC (RBC) [Mass/Vol] 33.8 g/dL Normal 32.0-36.0 [facility] Comment on above: Performed By: #### L 200.67818 #### [facility] [address] [place] [address] MCV (RBC) [Entitic vol] 88.8 fL Normal 80.0-99.0 [facility] Comment on above: Performed By: #### L 200.10339 #### [facility] [address] [place] [address] MONO ABS 0.60 K/CU MM Normal 0.1-1.1 [facility] Comment on above: Performed By: #### L 200.49505 #### [facility] [address] [place] [address] Monocytes/100 WBC (Bld) 6.2 % Normal 2-10 [facility] Comment on above: Performed By: #### L 200.26524 #### [facility] [address] [place] [address] NEUTROPHIL ABS 4.30 K/CU MM Normal 2.0-8.3 [facility] Comment on above: Performed By: #### L 200.98065 #### [facility] [address] [place] [address] Neutrophils/100 WBC (Bld) 48.3 % Normal 45-75 [facility] Comment on above: Performed By: #### L 200.59350 #### [facility] [address] [place] [address] Nucleated RBC/100 WBC (Bld) [Ratio] 0.0 % Normal Less than 1 [facility] Comment on above: Performed By: #### L 200.36709 #### [facility] [address] [place] [address] Platelet mean volume (Bld) [Entitic vol] 11.4 fL Normal 9.4-12.4 [facility] Comment on above: Performed By: #### L 200.69227 #### [facility] [address] [place] [address] PLT 175 K/CU MM Normal 150-450 [facility] Comment on above: Performed By: #### L 200.46121 #### [facility] [address] [place] [address] RBC 5.29 M/CU MM Normal 4.50-6.00 [facility] Comment on above: Performed By: #### L 200.88793 #### [facility] [address] [place] [address] WBC 8.9 K/CUMM Normal 4.5-11.0 [facility] Comment on above: Performed By: #### L 200.86400 #### [facility] [address] [place], [place] [id number] CMPon 09-17-2020 Albumin [Mass/Vol] 3.9 g/dL Normal 3.2-5.0 [facility] Comment on above: Performed By: #### L 500.41237, L500.43191, L500.96825, L500.50724 #### [facility] [address] [place] [address] Albumin/Globulin [Mass ratio] 1.7 {ratio} Normal 0.8-2.0 [facility] Comment on above: Performed By: #### L 500.87443, L500.49365, L500.54578, L500.92367 #### [facility] [address] [place] [address] ALK PHOS 64 U/L Normal 45-117 [facility] Comment on above: Performed By: #### L 500.46313, L500.73793, L500.08330, L500.58167 #### [facility] [address] [place] [address] ALT [Catalytic activity/Vol] 36 U/L Normal 13-61 [facility] Comment on above: Result Comment: RESU LTS MAY BE FALSELY DEPRESSED AFTER THE ADMINISTRATION OF SULFASALAZINE AND/OR SULFAPYRIDINE. Performed By: #### L 500.89311, L500.27823, L500.24357, L500.72405 #### [facility] [address] [place], [place] [address] Anion gap [Moles/Vol] 5 mmol/L Normal 5-16 [facility] Comment on above: Performed By: #### L 500.31217, L500.03797, L500.62598, L500.91739 #### [facility] [address] [place], [place] [address] AST [Catalytic activity/Vol] 32 U/L Normal 8-34 [facility] Comment on above: Result Comment: RESU LTS MAY BE FALSELY DEPRESSED AFTER THE ADMINISTRATION OF SULFASALAZINE AND/OR SULFAPYRIDINE. Performed By: #### L 500.12626, L500.27556, L500.53759, L500.28957 #### [facility] [place] [address] BILI TOTAL 1.20 MG/DL High 0.2-1.0 [facility] Comment on above: Performed By: #### L 500.73825, L500.74329, L500.32529, L500.28867 #### [facility] [address] [place] [address] Calcium [Mass/Vol] 9.2 mg/dL Normal 8.5-10.5 [facility] Comment on above: Result Comment: NOTE NEW NORMAL RANGE DUE TO REAGENT CHANGE Performed By: #### L 500.34834, L500.04561, L500.39781, L500.82200 #### [facility] [place] [address] Chloride [Moles/Vol] 107 mmol/L Normal 98-107 [facility] Comment on above: Performed By: #### L 500.77771, L500.09440, L500.99787, L500.01815 #### [facility] [place] [address] CO2 [Moles/Vol] 30.0 mmol/L Normal 21-32 [facility] Comment on above: Performed By: #### L 500.00494, L500.28621, L500.72507, L500.12943 #### [facility] [address] [place] [address] Creatinine [Mass/Vol] 1.02 mg/dL Normal 0.5-1.4 [facility] Comment on above: Result Comment: NOTE NEW NORMAL RANGE DUE TO REAGENT CHANGE Patients receiving either N-Acetylcysteine (NAC) or Metamizole prior to venipuncture, may have falsely depressed results. Performed By: #### L 500.75876, L500.14151, L500.09536, L500.66910 #### [facility] [address] [place] [address] Globulin (S) [Mass/Vol] 2.3 g/dL Normal 2.2-4.2 [facility] Comment on above: Performed By: #### L 500.19067, L500.55221, L500.37009, L500.64609 #### [facility] [address] [place] [address] Glucose [Mass/Vol] 95 mg/dL Normal 70-100 [facility] Comment on above: Result Comment: 70-1 00- Normal Fasting; 100-125 Impaired Fasting; greater than 126 on more than one result- Diabetes. ADA guidelines. Results may be falsely elevated after the administration of Sulfapyridine. Results may be falsely depressed after the administration of Sulfasalazine. Performed By: #### L 500.34935, L500.58142, L500.82030, L500.33274 #### [facility] [address] [place] [address] Potassium [Moles/Vol] 4.9 mmol/L Normal 3.5-5.1 [facility] Comment on above: Result Comment: Slig ht Hemolysis, Result may be affected. Performed By: #### L 500.08076, L500.03652, L500.43559, L500.88221 #### [facility] [address] [place] [address] Protein [Mass/Vol] 6.2 g/dL Normal 6.0-8.5 [facility] Comment on above: Performed By: #### L 500.97270, L500.73017, L500.98872, L500.64919 #### [facility] [address] [place] [address] Sodium [Moles/Vol] 142 mmol/L Normal 136-145 [facility] Comment on above: Performed By: #### L 500.64531, L500.78528, L500.69536, L500.39723 #### [facility] [address] [place] [address] Urea nitrogen [Mass/Vol] 16 mg/dL Normal 7-26 [facility] Comment on above: Performed By: #### L 500.30243, L500.43236, L500.14763, L500.09849 #### [facility] [address] [place] [address] Urea nitrogen/Creatinine [Mass ratio] 16 mg/mg Normal 15-24 [facility] Comment on above: Performed By: #### L 500.81977, L500.69751, L500.01913, L500.22879 #### [facility] [address] [place] [address] GFR ESTon 09-17-2020 IF AMER Greater than [address] [facility] Comment on above: Performed By: #### L 500.80138, L500.46003, L500.96937, L500.93394 #### [facility] [address] [place] [address] IF non-AFR AMER Greater than [address] [facility] Comment on above: Performed By: #### L 500.27612, L500.11559, L500.38684, L500.11129 #### [facility] [address] [place] [address] LIPIDon 09-17-2020 CHOL 119 MG/dL Normal 0-199 [facility] Comment on above: Performed By: #### L 500.18747, L500.70632, L500.01692, L500.42627 #### [facility] [address] [place] [address] Cholesterol in HDL [Mass/Vol] 51 mg/dL Normal GREATER THAN 40 [facility] Comment on above: Result Comment: Rima ents receiving Metamizole prior to venipuncture, may have falsely depressed results. Performed By: #### L 500.65769, L500.15700, L500.16665, L500.44364 #### [facility] [address] [place] [address] Cholesterol in LDL [Mass/Vol] 50 mg/dL Normal [facility] Comment on above: Result Comment: ___C HOLESTEROL/HDL RATIO RISK___ CHD RISK = Total CHOL LDL HDL (CHOL/HDL) Recommended <200 <130 >40 <3.4 Borderline 200-239 130-159 3.4-4.99 High >240 >160 >5.0 Performed By: #### L [id number], L500.14355, L500.10572, L500.26577 #### [facility] [address] [place], [place] [id number] Triglyceride [Mass/Vol] 94 mg/dL Normal 30-149 [facility] Comment on above: Result Comment: Rima ents receiving either N-Acetylcysteine (NAC) or Metamizole prior to venipuncture, may have falsely depressed results. Performed By: #### L 500.84497, L500.07255, L500.08564, L500.12977 #### [facility] [address] [place] [address] PSA SCREENon 09-17-2020 PSA SCREEN 0.31 NG/ML Normal 0.0-4.0 [facility] Comment on above: Performed By: #### L 500.69830, L500.15854, L500.40680, L500.60149 #### [facility] [address] [place] [address] UA COMPLETEon 09-17-2020 AM[address]YST MANY Normal [facility] Comment on above: Performed By: #### L 600.79026 #### [facility] [address] [place] [address] Color (U) Yellow Normal [facility] Comment on above: Performed By: #### L 600.56938 #### [facility] [address] [place] [address] Glucose (U) [Mass/Vol] Negative Normal NORMAL [facility] Comment on above: Performed By: #### L 600.26422 #### [facility] [address] [place] [address] Mucus Ql (Urine sed) TRACE Normal NEGATIVE [facility] Comment on above: Performed By: #### L 600.54170 #### [facility] [address] [place] [address] SQUAMOUS EPIS NONE Low 0-5 [facility] Comment on above: Performed By: #### L 600.24612 #### [facility] [address] [place] [address] UA APPEARANCE Turbid Normal CLEAR [facility] Comment on above: Performed By: #### L 600.67444 #### [facility] [address] [place] [address] UA BACTERIA 1+ /HPF Normal NONE [facility] Comment on above: Performed By: #### L 600.49731 #### [facility] [place] [address] UA BILIRUBIN Negative Normal NEGATIVE [facility] Comment on above: Performed By: #### L 600.68084 #### [facility] [address] [place] [address] UA BLOOD Negative Normal NEGATIVE [facility] Comment on above: Performed By: #### L 600.67377 #### [facility] [address] [place] [address] UA KETONE Negative Normal NEGATIVE [facility] Comment on above: Performed By: #### L 600.46617 #### [facility] [address] [place] [address] UA LK ESTERASE Negative Normal NEGATIVE [facility] Comment on above: Performed By: #### L 600. #### [facility] [address] [place] [address] UA NITRITE Negative Normal NEGATIVE [facility] Comment on above: Performed By: #### L 600.55505 #### [facility] [place] [address] UA PH 5.0 Normal 5-6 [facility] Comment on above: Performed By: #### L 600.58085 #### [facility] [address] [place] [address] UA PROTEIN Negative Normal NEGATIVE [facility] Comment on above: Performed By: #### L 600.86461 #### [facility] [address] [place] [address] UA RBC 3 RBC/HPF Normal 0-3 [facility] Comment on above: Performed By: #### L 600.01479 #### [facility] [address] [place] [address] UA SPEC GRAV 1.023 Normal 1.005-1.030 [facility] Comment on above: Performed By: #### L 600.01597 #### [facility] [address] [place] [address] UA UROBILINOGEN Negative Normal NORMAL [facility] Comment on above: Performed By: #### L 600.21001 #### [facility] [address] [place] [address] UA WBC LESS THAN 1 Normal 0-5 [facility] Comment on above: Performed By: #### L 600.71552 #### [facility] [address] [place] [address] Final Surgical Pathology Rep [facility] 05-05-2018 Final Surgical Pathology Report . Pathology Reports Accession: Collected Date/Time: Received Date/Time: Pathologist: [id number] 05/03/2018 08:21 EST 05/04/2018 08:21 EST BHARGAV PENA MD Final Surgical Pathology Report DIAGNOSIS: SKIN, RIGHT INFERIOR LATERAL NECK -- COMPOUND NEVUS WITH NEUROTIZATION. CLINICAL INFORMATION: R/O BASAL CELL CARCINOMA VS NEVUS PROCEDURE: BIOPSY BY SHAVE METHOD SPECIMEN: A SKIN - RIGHT INFERIOR LATERAL NECK GROSS DESCRIPTION: Received in formalin labeled right inferior lateral neck is a 0.8 x 0.5 cm fuentes irregular skin shave. The surface shows a 0.7 x 0.5 cm slightly darker fuentes, mottled, ill-defined lesion. No orientation is given. The specimen is inked, sectioned, and entirely submitted in one cassette. Dictated by [place] KIM ([facility]) MICROSCOPIC DESCRIPTION: Slides reviewed. Electronically Signed by Pathology Report verified by [facility] Electronically signed by BHARGAV PENA Sign out Date: 05/05/2018 16:49 Performing Lab: [facility], [address] [place] [address] ([place]) Comment on above: Performed By: #### S PFR #### [facility] [address] [place] [address] Office Visiton 10-05-2016 Documentation of current medications (procedure) Done Invalid Interpretation Code [facility] Work Phone: [phone] Fall risk assessment Fall risk assessment Invali d Interpretation Code [employer] Work Phone: [phone] Office Visiton 10-07-2015 Documentation of current medications (procedure) Done Invalid Interpretation Code [employer] Work Phone: [phone] Clinical Lists Update: [employer] 09-26-2015 Left ventricular Ejection fraction 75 % Invalid Interpretation Code [employer] Work Phone: [phone] Clinical Lists Update: [employer]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 Alanine aminotransferase (ALT) 42 U/L Invalid Interpretation Code [employer] Work Phone: [phone] Albumin 3.7 g/dL Invalid Interpretation Code [employer] Work Phone: [phone] Albumin/Globulin Ratio 1.2 {ratio} Invalid Interpretation Code [employer] Work Phone: [phone] Alkaline phosphatase (ALP) 74 U/L Invalid Interpretation Code [employer] Work Phone: [phone] Anion gap 8 mmol/L Invalid Interpretation Code [employer] Work Phone: [phone] Aspartate aminotransferase (AST) 27 U/L Invalid Interpretation Code [employer] Work Phone: [phone] BUN/Creatinine Ratio 11.7 mg/mg Invalid Interpretation Code [employer] Work Phone: [phone] Calcium 8.1 mg/dL Low [employer] Work Phone: [phone] Chloride 108 mmol/L High [employer] Work Phone: [phone] Cholesterol 170 mg/dL Invalid Interpretation Code [employer] Work Phone: [phone] CO2 26.0 mmol/L Invalid Interpretation Code [employer] Work Phone: [phone] Creatinine 1.11 mg/dL Invalid Interpretation Code [employer] Work Phone: [phone] eGFR (non-black) 89 mL/min/{1.73_m2} Invalid Interpretation Code [employer] Work Phone: [phone] eGFR (non-black) 74 mL/min/{1.73_m2} Invalid Interpretation Code [employer] Work Phone: [phone] Erythrocytes (RBC) 5.72 10*6/uL Invalid Interpretation Code [employer] Work Phone: [phone] Globulin 3.1 g/dL Invalid Interpretation Code [employer] Work Phone: [phone] Glucose 94 mg/dL Invalid Interpretation Code [employer] Work Phone: [phone] HDL Cholesterol 47 mg/dL Invalid Interpretation Code [employer] Work Phone: [phone] Hematocrit (HCT) 48.2 % Invalid Interpretation Code [employer] Work Phone: [phone] Hemoglobin (HGB) 17.2 g/dL High [employer] Work Phone: [phone] LDL Cholesterol 94 mg/dL Invalid Interpretation Code [employer] Work Phone: [phone] MCH 30.1 pg Invalid Interpretation Code [employer] Work Phone: [phone] MCHC 35.7 g/dL Invalid Interpretation Code [employer] Work Phone: [phone] MCV 84.3 fL Invalid Interpretation Code [employer] Work Phone: [phone] Platelets 182 10*3/mm3 Invalid Interpretation Code [employer] Work Phone: [phone] PMV by Parrish 11.4 fL Invalid Interpretation Code [employer] Work Phone: [phone] Potassium 4.1 mmol/L Invalid Interpretation Code [employer] Work Phone: [phone] Protein 6.8 g/dL Invalid Interpretation Code [employer] Work Phone: [phone] RDW-CA 13.2 % Invalid Interpretation Code [employer] Work Phone: [phone] Sodium 142 mmol/L Invalid Interpretation Code [employer] Work Phone: [phone] Triglyceride 144 mg/dL Invalid Interpretation Code [employer] Work Phone: [phone] Urea nitrogen 13 mg/dL Invalid Interpretation Code [employer] Work Phone: [phone] very low density lipoproteins 29 mg/dL Invalid Interpretation Code [employer] Work Phone: [phone] WBC (Leukocytes) 7.0 10*3/uL Invalid Interpretation Code [employer] Work Phone: [phone] Office Visiton 10-11-2014 Tobacco use CPHS Never smoker Invalid Interpretation Code [employer] Phone: [phone] Office Visiton 03-12-2014 cardiac risk group B Invalid Interpretation Code [employer] Phone: [phone] Dietary management education, guidance, and counseling (procedure) yes Invalid Interpretation Code [employer] Phone: [phone] General cardiovascular disease 10Y risk [#] Hay.Yue'Agorebecca chambers 6 % Invalid Interpretation Code [employer] Phone: [phone] Replaced Document: Alli Mckeon CG Observationson 03-06-2013 BUN (urea nitrogen) Sinus Bradycardia -R SR(V1) -possible 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 Voltage criteria for LVH (R(I)+S(III) exceeds 2.50 mV). - Negative T-waves -Seen with left ventricular hypertrophy (strain). ABNORMAL Invalid Interpretation Code [employer] Phone: [phone] P wave axis, electrocardiogram 29 deg Invalid Interpretation Code [employer] Phone: [phone] LA interval, electrocardiogram 154 ms Invalid Interpretation Code [employer] Phone: [phone] Pulse (Heart Rate) 55 /min Invalid Interpretation Code [employer] Phone: [phone] QRS axis, electrocardiogram -26 deg Invalid Interpretation Code [employer] Phone: [phone] QRS duration, electrocardiogram 110 ms Invalid Interpretation Code [employer] Phone: [phone] QT interval, electrocardiogram new path ms Invalid Interpretation Code [employer] Phone: [phone] T wave axis, electrocardiogram 113 deg Invalid Interpretation Code [facility] Work Phone: [phone] Lab Report: [facility] 12-04-2010 CO2 9 mmol/L Normal 5-15 [facility] Work Phone: [phone] Vital Signs Date Time Vital Sign Value Performing Clinician Facility 08-02-2024 08:33-0400 Body height 182.[address] Laci Eller MD Work Phone: [facility] 08-02-2024 08:33-0400 Body mass index (BMI) [Ratio] 29.1 kg/m2 Dr. Laci Eller MD Work Phone: [facility] 08-02-2024 08:33-0400 Body weight 97.[address] Laci Eller MD Work Phone: [facility] 08-02-2024 08:33-0400 Diastolic blood pressure 76 mm[Hg] Dr. Laci Eller MD Work Phone: [facility] 08-02-2024 08:33-0400 Heart rate 51 /min Dr. Laci Eller MD Work Phone: [facility] 08-02-2024 08:33-0400 Respiratory rate 18 /min Dr. Laci Eller MD Work Phone: [facility] 08-02-2024 08:33-0400 SaO2% (BldA) [Mass fraction] 94 % Dr. Laci Eller MD Work Phone: [facility] 08-02-2024 08:33-0400 Systolic blood pressure 132 mm[Hg] Dr. Laci Eller MD Work Phone: [facility] 07-19-2024 07:48-0400 Body mass index (BMI) [Ratio] 30.4 kg/m2 Dr. Laci Eller MD Work Phone: [facility] 07-19-2024 07:48-0400 Body temperature 97.4 [degF] Dr. Laci Eller MD Work Phone: [facility] 07-19-2024 07:48-0400 Body weight 101.[address] Laci Eller MD Work Phone: [facility] 07-19-2024 07:48-0400 Diastolic blood pressure 75 mm[Hg] Dr. Laci Eller MD Work Phone: [facility] 07-19-2024 07:48-0400 Heart rate 58 /min Dr. Laci Eller MD Work Phone: [facility] 07-19-2024 07:48-0400 Respiratory rate 18 /min Dr. Laci Eller MD Work Phone: [facility] 07-19-2024 07:48-0400 SaO2% (BldA) [Mass fraction] 95 % Dr. Laci Eller MD Work Phone: [facility] 07-19-2024 07:48-0400 Systolic blood pressure 120 mm[Hg] Dr. Laci Eller MD Work Phone: [facility] 02-27-2024 15:35-0500 Body height 182.9 cm Laci Eller MD Work Phone: [facility] 02-27-2024 15:35-0500 Body mass index (BMI) [Ratio] 32.69 kg/m2 Laci Eller MD Work Phone: [facility] 02-27-2024 15:35-0500 Body temperature 97.2 [degF] Laci Eller MD Work Phone: [facility] 02-27-2024 15:35-0500 Body weight 109.32 kg Laci Eller MD Work Phone: [facility] 02-27-2024 15:35-0500 Diastolic blood pressure 80 mm[Hg] Laci Eller MD Work Phone: [facility] 02-27-2024 15:35-0500 Heart rate 64 /min Laci Eller MD Work Phone: [facility] 02-27-2024 15:35-0500 Respiratory rate 18 /min Laci Eller MD Work Phone: [facility] 02-27-2024 15:35-0500 SaO2% (BldA) [Mass fraction] 95 % Laci Eller MD Work Phone: [facility] 02-27-2024 15:35-0500 Systolic blood pressure 130 mm[Hg] Laci Eller MD Work Phone: [facility] 11-17-2023 14:07-0400 Body height 182.9 cm Laci Eller MD Work Phone: [facility] 11-17-2023 14:07-0400 Body mass index (BMI) [Ratio] 33.53 kg/m2 Laci Eller MD Work Phone: [facility] 11-17-2023 14:07-0400 Body temperature 98.2 [degF] Laci Eller MD Work Phone: [facility] 11-17-2023 14:07-0400 Body weight 112.15 kg Laci Eller MD Work Phone: [facility] 11-17-2023 14:07-0400 Diastolic blood pressure 82 mm[Hg] Laci Eller MD Work Phone: [facility] 11-17-2023 14:07-0400 Heart rate 58 /min Laci Eller MD Work Phone: [facility] 11-17-2023 14:07-0400 Respiratory rate 18 /min Laci Eller MD Work Phone: [facility] 11-17-2023 14:07-0400 SaO2% (BldA) [Mass fraction] 96 % Laci Eller MD Work Phone: [facility] 11-17-2023 14:07-0400 Systolic blood pressure 138 mm[Hg] Laci Eller MD Work Phone: [facility] 10-05-2023 14:27-0400 Body height 182.9 cm Laci Eller MD Work Phone: [facility] 10-05-2023 14:27-0400 Body mass index (BMI) [Ratio] 33.36 kg/m2 Laci Eller MD Work Phone: [facility] 10-05-2023 14:27-0400 Body temperature 97.59 [degF] Laci Eller MD Work Phone: [facility] 10-05-2023 14:27-0400 Body weight 111.58 kg Laci Eller MD Work Phone: [facility] 10-05-2023 14:27-0400 Diastolic blood pressure 82 mm[Hg] Laci Eller MD Work Phone: [facility] 10-05-2023 14:27-0400 Heart rate 76 /min Laci Eller MD Work Phone: [facility] 10-05-2023 14:27-0400 Respiratory rate 18 /min Laci Eller MD Work Phone: [facility] 10-05-2023 14:27-0400 SaO2% (BldA) [Mass fraction] 97 % Laci Eller MD Work Phone: [facility] 10-05-2023 14:27-0400 Systolic blood pressure 132 mm[Hg] Laci Eller MD Work Phone: [facility] 11-23-2022 13:45-0400 Body height 182.[address] Laci Eller Work Phone: [facility] 11-23-2022 13:45-0400 Body mass index (BMI) [Ratio] 32.8 kg/m2 Dr. Laci Eller Work Phone: [facility] 11-23-2022 13:45-0400 Body weight 109.[address] Laci Eller Work Phone: [facility] 11-23-2022 13:45-0400 Diastolic blood pressure 73 mm[Hg] Dr. Laci Eller Work Phone: [facility] 11-23-2022 13:45-0400 Heart rate 72 /min Dr. Laci Eller Work Phone: [facility] 11-23-2022 13:45-0400 Respiratory rate 18 /min Dr. Laci Eller Work Phone: [facility] 11-23-2022 13:45-0400 SaO2% (BldA) [Mass fraction] 94 % Dr. Laci Eller Work Phone: [facility] 11-23-2022 13:45-0400 Systolic blood pressure 113 mm[Hg] Dr. Laci Eller Work Phone: [facility] 10-06-2022 15:16-0400 Body height 182.9 cm Laci Eller MD Work Phone: [facility] 10-06-2022 15:16-0400 Body temperature 97.3 [degF] Laci Eller MD Work Phone: [facility] 10-06-2022 15:16-0400 Body weight 109.86 kg Laci Eller MD Work Phone: [facility] 10-06-2022 15:16-0400 Diastolic blood pressure 76 mm[Hg] Laci Eller MD Work Phone: [facility] 10-06-2022 15:16-0400 Heart rate 64 /min Laci Eller MD Work Phone: [facility] 10-06-2022 15:16-0400 Respiratory rate 14 /min Laci Eller MD Work Phone: [facility] 10-06-2022 15:16-0400 SaO2% (BldA) [Mass fraction] 95 % Laci Eller MD Work Phone: [facility] 10-06-2022 15:16-0400 Systolic blood pressure 114 mm[Hg] Laci Eller MD Work Phone: [facility] 05-24-2022 14:15-0500 Body height 182.[address] Laci Eller Work Phone: [facility] 05-24-2022 14:13-0500 Body mass index (BMI) [Ratio] 32.9 kg/m2 Dr. Laci Eller Work Phone: [facility] 05-24-2022 14:13-0500 Body weight 110.[address] Laci Eller Work Phone: [facility] 05-24-2022 14:13-0500 Diastolic blood pressure 79 mm[Hg] Dr. Laci Eller Work Phone: [facility] 05-24-2022 14:13-0500 Heart rate 64 /min Dr. Laci Eller Work Phone: [facility] 05-24-2022 14:13-0500 Respiratory rate 18 /min Dr. Laci Eller Work Phone: [facility] 05-24-2022 14:13-0500 SaO2% (BldA) [Mass fraction] 94 % Dr. Laci Eller Work Phone: [facility] 05-24-2022 14:13-0500 Systolic blood pressure 139 mm[Hg] Dr. Laci Eller Work Phone: [facility] 04-05-2022 14:50-0500 Body height 182.9 cm Laci Eller MD Work Phone: [facility] 04-05-2022 14:50-0500 Body temperature 97.5 [degF] Laci Eller MD Work Phone: [facility] 04-05-2022 14:50-0500 Body weight 110.85 kg Laci Eller MD Work Phone: [facility] 04-05-2022 14:50-0500 Diastolic blood pressure 76 mm[Hg] Laci Eller MD Work Phone: [facility] 04-05-2022 14:50-0500 Heart rate 70 /min Laci Eller MD Work Phone: [facility] 04-05-2022 14:50-0500 Respiratory rate 17 /min Laci Eller MD Work Phone: [facility] 04-05-2022 14:50-0500 SaO2% (BldA) [Mass fraction] 98 % Laci Eller MD Work Phone: [facility] 04-05-2022 14:50-0500 Systolic blood pressure 140 mm[Hg] Laci Eller MD Work Phone: [facility] 03-25-2022 07:06-0500 Body height 182.[address] Laci Eller Work Phone: [facility] Work Phone: 03-25-2022 07:06-0500 Body mass index (BMI) [Ratio] 32.5 kg/m2 Dr. Laci Eller Work Phone: [facility] 03-25-2022 07:06-0500 Body temperature 96.2 [degF] Dr. Laci Eller Work Phone: [facility] 03-25-2022 07:06-0500 Body weight 108.[address] Laci Eller Work Phone: [facility] 03-25-2022 07:06-0500 Diastolic blood pressure 81 mm[Hg] Dr. Laci Eller Work Phone: [facility] 03-25-2022 07:06-0500 Heart rate 54 /min Dr. Laci Eller Work Phone: [facility] 03-25-2022 07:06-0500 Respiratory rate 18 /min Dr. Laci Eller Work Phone: [facility] 03-25-2022 07:06-0500 SaO2% (BldA) [Mass fraction] 94 % Dr. Laci Eller Work Phone: [facility] 03-25-2022 07:06-0500 Systolic blood pressure 143 mm[Hg] Dr. Laci Eller Work Phone: [facility] 10-22-2021 07:54-0400 Body height 182.[address] Laci Eller Work Phone: [facility] Work Phone: 10-22-2021 07:54-0400 Body mass index (BMI) [Ratio] 31.5 kg/m2 Dr. Laci Eller Work Phone: [facility] Work Phone: 10-22-2021 07:54-0400 Body temperature 96.6 [degF] Dr. Laci Eller Work Phone: [facility] Work Phone: 10-22-2021 07:54-0400 Body weight 105.[address] Laci Eller Work Phone: [facility] Work Phone: 10-22-2021 07:54-0400 Diastolic blood pressure 74 mm[Hg] Dr. Laci Eller Work Phone: [facility] Work Phone: 10-22-2021 07:54-0400 Heart rate 71 /min Dr. Laci Eller Work Phone: [facility] Work Phone: 10-22-2021 07:54-0400 Respiratory rate 17 /min Dr. Laci Eller Work Phone: [facility] Work Phone: 10-22-2021 07:54-0400 SaO2% (BldA) [Mass fraction] 96 % Dr. Laci Eller Work Phone: [facility] Work Phone: 10-22-2021 07:54-0400 Systolic blood pressure 116 mm[Hg] Dr. Laci Eller Work Phone: [facility] Work Phone: 09-08-2021 15:11-0400 Body height 182.[address] Laci Eller Work Phone: [facility] Work Phone: 09-08-2021 15:11-0400 Body mass index (BMI) [Ratio] 31.1 kg/m2 Dr. Laci Eller Work Phone: [facility] Work Phone: 09-08-2021 15:11-0400 Body weight 104.[address] Laci Eller Work Phone: [facility] Work Phone: 09-08-2021 15:11-0400 Diastolic blood pressure 80 mm[Hg] Dr. Laci Eller Work Phone: [facility] Work Phone: 09-08-2021 15:11-0400 Heart rate 59 /min Dr. Laci Eller Work Phone: [facility] Work Phone: 09-08-2021 15:11-0400 Respiratory rate 18 /min Dr. Laci Eller Work Phone: [facility] Work Phone: 09-08-2021 15:11-0400 SaO2% (BldA) [Mass fraction] 97 % Dr. Laci Eller Work Phone: [facility] Work Phone: 09-08-2021 15:11-0400 Systolic blood pressure 138 mm[Hg] Dr. Laci Eller Work Phone: [facility] Work Phone: 08-06-2021 08:55-0400 Body height 182.88 cm Laci Eller Work Phone: [facility] Work Phone: 08-06-2021 08:55-0400 Body mass index (BMI) [Ratio] 31.47 kg/m2 Laci Eller Work Phone: [facility] Work Phone: 08-06-2021 08:55-0400 Body surface area Derived from formula 2.27 m2 Laci Eller Work Phone: [facility] Work Phone: 08-06-2021 08:55-0400 Body weight 105.26 kg Laci Eller Work Phone: [facility] Work Phone: 08-06-2021 08:55-0400 Diastolic blood pressure 90 mm[Hg] Laci Eller Work Phone: [facility] Work Phone: 08-06-2021 08:55-0400 Heart rate 56 /min Laci Eller Work Phone: IA[facility]Toovofmjjs[facility]Zxw [facility] Work Phone: 08-06-2021 08:55-0400 SaO2% (BldA) [Mass fraction] 95 % Laci Eller Work Phone: GB[facility]Wiecyprfud[facility]Esi [facility] Work Phone: 08-06-2021 08:55-0400 Systolic blood pressure 156 mm[Hg] Laci Eller Work Phone: JM[facility]Tefrvxdcwo-Sgb [facility] Work Phone: 08-06-2021 08:55-0400 0 1 Laci Eller Work Phone: OT-Odhontvige-Inw grin Work Phone: Comment on above: [employer] 06-09-2021 14:21-0500 Body mass index (BMI) [Ratio] 31.8 kg/m2 Dr. Laci Eller Work Phone: [facility] Work Phone: 06-09-2021 14:21-0500 Body weight 106.[address] Laci Eller Work Phone: [facility] Work Phone: 06-09-2021 14:21-0500 Diastolic blood pressure 67 mm[Hg] Dr. Laci Eller Work Phone: [facility] Work Phone: 06-09-2021 14:21-0500 Heart rate 65 /min Dr. Laci Eller Work Phone: [facility] Work Phone: 06-09-2021 14:21-0500 Respiratory rate 18 /min Dr. Laci Eller Work Phone: [facility] Work Phone: 06-09-2021 14:21-0500 SaO2% (BldA) [Mass fraction] 95 % Dr. Laci Eller Work Phone: [facility] Work Phone: 06-09-2021 14:21-0500 Systolic blood pressure 132 mm[Hg] Dr. Laci Eller Work Phone: [facility] Work Phone: 10-05-2016 09:12-0400 BMI (Body Mass Index) 30.59 kg/m2 [facility] Work Phone: 10-05-2016 09:12-0400 BP Diastolic 70 mm[Hg] [facility] Work Phone: 10-05-2016 09:12-0400 BP Systolic 110 mm[Hg] [facility] Work Phone: 10-05-2016 09:12-0400 Height 182.25 cm [facility] Work Phone: 10-05-2016 09:12-0400 Pulse (Heart Rate) 56 /min [facility] Work Phone: 10-05-2016 09:12-0400 Respiratory Rate 20 /min [facility] Work Phone: 10-05-2016 09:12-0400 Weight 101.61 kg [facility] Work Phone: 10-07-2015 10:02-0400 BMI (Body Mass Index) 31.95 kg/m2 [facility] Work Phone: 10-07-2015 10:02-0400 BP Diastolic 70 mm[Hg] [facility] Work Phone: 10-07-2015 10:02-0400 BP Systolic 110 mm[Hg] [facility] Work Phone: 10-07-2015 10:02-0400 BSA (Body Surface Area) 2.27 m2 [facility] Work Phone: 10-07-2015 10:02-0400 Pulse (Heart Rate) 64 /min [facility] Work Phone: 10-07-2015 10:02-0400 Respiratory Rate 20 /min [facility] Work Phone: 10-07-2015 10:02-0400 Weight 106.14 kg [facility] Work Phone: 08-06-2011 16:30-0400 Body Temperature 97.9 [degF] Taylor Cedeno RN [facility] Work Phone: 11-17-2010 09:29-0400 Height 182.25 cm [facility] Work Phone: 11-17-2010 08:46-0400 Pulse Oximetry 97 % [facility] Work Phone: Encounters Encounter Date Encounter Type Care Provider Facility Start: 02-07-2025 End: 02-07-2025 ambulatory Alexandrea Cedeno Facility:[facility] Start: 12-17-2024 End: 12-17-[address] Laci Eller MD Work Phone: -[employer] Start: 12-17-2024 End: 12-17-[address] Garrett Noguera MD [facility] Work Phone: Start: 11-20-2024 End: 11-20-[address] Laci Eller MD Work Phone: -[facility] Start: 11-20-2024 End: 11-20-[address] Garrett Noguera MD -[facility] Work Phone: Start: 11-20-2024 End: 11-20-2024 Patient encounter procedure Felipe Turner PA [facility] Work Phone: Start: 11-20-2024 End: 11-20-[address] Laci Eller MD Work Phone: [facility] Start: 11-05-2024 End: 11-05-[address] Laci Eller MD Work Phone: -[facility] Start: 11-05-2024 End: 11-05-2024 Patient encounter procedure Alexandrea Cedeno -[facility] Work Phone: Start: 08-02-2024 End: 08-02-[address] Garrett Noguera MD -[facility] Work Phone: Start: 08-02-2024 End: 08-02-2024 ambulatory Laci Eller Facility:[facility] Start: 07-19-2024 End: 07-19-2024 Patient encounter procedure [facility] Provider [facility] Department Start: 07-19-2024 End: 07-19-2024 ambulatory Laci Eller Facility:[facility] Start: 04-09-2024 End: 04-09-2024 ambulatory Laci Eller Facility:[facility] Start: 02-27-2024 End: 02-27-2024 Office outpatient visit 15 minutes Laci Eller MD Work Phone: [facility] Comment on above: Class 1 obesity due to excess calories with serious comorbidity and body mass index (BMI) of 32.0 to 32.9 in adult (Primary Dx) Start: 02-27-2024 End: 02-27-2024 ambulatory LACI ELLER Facility:[id number] Start: 12-12-2023 End: 12-12-2023 Refill Laci Eller MD Work Phone: [facility] Comment on above: Refill Request Start: 11-21-2023 E-mail encounter fro m caregiver Laci Eller MD Work Phone: [facility] Start: 11-21-2023 Patient encounter procedure Laci Eller MD Work Phone: [facility] Comment on above: Mounjaro Start: 11-21-2023 Telephone encounter Laci Eller MD Work Phone: [facility] Comment on above: Denied, Chantell Start: 11-17-2023 Telephone encounter Laci Eller MD Work Phone: [facility] Comment on above: Pending mounjaro Start: 11-17-2023 End: 11-17-2023 Office outpatient visit 15 minutes Laci Eller MD Work Phone: [facility] Comment on above: Class 1 obesity due to excess calories with serious comorbidity and body mass index (BMI) of 33.0 to 33.9 in adult (Primary Dx); Coronary artery disease involving [place] coronary artery of [place] heart without angina pectoris; History of coronary artery stent placement; Hypertrophic obstructive cardiomyopathy (HOCM) (HCC); Hypertension, benign Start: 11-17-2023 End: 11-17-2023 ambulatory LACI ELLER Facility:[id number] Start: 10-05-2023 End: 10-05-2023 Patient encounter status Laci Eller MD Work Phone: [facility] Start: 10-05-2023 End: 10-05-2023 Periodic preventive med est patient 40-64yrs Laci Eller MD Work Phone: [facility] Comment on above: Wellness examination (Primary Dx); Advanced care planning/counseling discussion; Hypertension, benign; History of coronary artery stent placement; Hypertrophic obstructive cardiomyopathy (HOCM) (HCC); Pure hyperglyceridemia; Screening for deficiency anemia; Screening PSA (prostate specific antigen) Start: 10-05-2023 End: 10-05-2023 ambulatory LACI RIGO RFAITA Facility:[id number] Start: 10-05-2023 Encounter for genera l adult medical examination without abnormal findings LACI RIGO RAFITA [facility] Start: 06-06-2023 End: 06-06-2023 ambulatory LACI SIERRA RAFITA Facility:[facility] Start: 06-06-2023 End: 06-06-2023 Patient encounter procedure [facility] Work Phone: Cardiology Comment on above: IRB #[id number] HCMR Nov el Predictors Registry (Primary Dx) Start: 06-06-2023 End: 06-06-2023 Patient entered into trial [facility] Work Phone: [facility] Start: 05-26-2023 Patient encounter procedure [facility] Provider [facility] Start: 04-22-2023 End: 04-23-2023 ambulatory LACI ELLER Facility:[facility] Start: 04-04-2023 End: 04-04-2023 ambulatory LACI ELLER Facility:[id number] Start: 01-24-2023 Patient encounter procedure [facility] Provider [facility] Start: 12-21-2022 Non-patient / Non-visit Dr. Ra vincent Eller Work Phone: [facility] Start: 12-21-2022 End: 12-21-[address] Laci Eller Work Phone: [facility] Work Phone: Start: 12-21-2022 End: 12-21-[address] Laci Eller Work Phone: [facility]Cardi[facility] Work Phone: Start: 11-23-2022 End: 11-23-[address] Laci Eller Work Phone: [facility] Work Phone: Start: 10-08-2022 End: 10-09-2022 ambulatory LACI ELLER Facility:[facility] Start: 10-06-2022 End: 10-06-2022 Patient encounter status Laci Eller MD Work Phone: [facility] Start: 10-06-2022 End: 10-06-2022 Periodic preventive med est patient 40-64yrs Laci Eller MD Work Phone: [facility] Comment on above: Wellness examination (Primary Dx); Pure hypercholesterolemia; Hypertension, essential; Screening PSA (prostate specific antigen); Screening for deficiency anemia; Screening for colon cancer Start: 07-05-2022 Patient encounter procedure Ccf Provider [facility] Department Start: 06-16-2022 End: 06-16-2022 ambulatory [facility] Facility:[facility] Start: 06-16-2022 End: 06-16-2022 Patient encounter procedure [facility] Work Phone: Cardiology Comment on above: IRB #[id number] HCMR Nov el Predictors Registry (Primary Dx) Start: 06-16-2022 End: 06-16-2022 Patient entered into trial [facility] Work Phone: [facility]iology Start: 06-04-2022 Non-patient / Non-visit Dr. Ra vincent Eller Work Phone: [facility] Start: 06-04-2022 End: 06-04-[address] Laci Eller Work Phone: [facility] Work Phone: Start: 06-04-2022 End: 06-04-[address] Laci Eller Work Phone: [facility]Cardiov[facility] Start: 05-24-2022 End: 05-24-[address] Laci Eller Work Phone: [facility] Start: 04-27-2022 Patient encounter procedure Ccf Provider [facility] Department Start: 04-08-2022 End: 04-08-[address] Laci Eller Work Phone: [facility] Work Phone: Start: 04-08-2022 End: 04-08-[address] Laci Eller Work Phone: [facility]-Sleep Lab Start: 04-05-2022 End: 04-05-2022 Office outpatient visit 15 minutes Laci Eller MD Work Phone: [facility] Comment on above: Encounter for immuni zation (Primary Dx); Mixed hyperlipidemia; Hypertension, benign; Obstructive sleep apnea syndrome; Hypertrophic obstructive cardiomyopathy (HOCM) (HCC) Start: 03-25-2022 End: 03-25-[address] Laci Eller Work Phone: [facility] Start: 01-18-2022 End: 01-18-[address] Laci Eller Work Phone: [facility] Work Phone: Start: 01-18-2022 End: 01-18-[address] Laci Eller Work Phone: [facility] Start: 10-22-2021 End: 10-22-[address] [facility]lr [facility] Start: 10-03-2021 End: 10-03-[address] Laci Eller Work Phone: [facility]-Laboratory Start: 09-29-2021 End: 09-29-[address] Laci Ellre Work Phone: [facility]Sleep Lab Start: 09-08-2021 End: 09-08-[address] Laci Eller Work Phone: [facility] Start: 08-06-2021 Office outpatient vi sit 25 minutes Laci Eller Work Phone: [facility] Work Phone: Start: 08-06-2021 Patient encounter procedure Laci Eller Work Phone: [facility] Work Phone: Start: 06-09-2021 End: 06-09-[address] Laci Eller Work Phone: [facility] Start: 05-04-2018 End: 05-09-2018 Patient encounter procedure THEODORE ALLISON Facility:[facility] Procedures Date Procedure Procedure Detail Performing Clinician Start: 10-05-2023 Adult depression scr eening assessment Laci Eller MD Work Phone: Start: 04-22-2023 Lipid 1996 panel - S melissa or Plasma [facility] Provider Start: 10-08-2022 Lipid 1996 panel - S melissa or Plasma [facility] Provider Start: 06-20-2020 History of placement of stent for coronary artery disease History of coronary artery stent placement Dr. Laci Eller Work Phone: Comment on above: PCI-LIONEL-Mid LCx w/ 2 .5 x 22 mm Resolute Stent 06/20/2020 Start: 06-20-2020 Cardiac catheterization Laci Eller Work Phone: Comment on above: PCI - LIONEL- MID LCx W / 2.5 X 22mm Resolute stent; Start: 10-05-2016 End: 10-05-2016 [employer] Garrett Noguera MD Start: 10-05-2016 End: 10-05-2016 Follow Up Appt 1 year Garrett Noguera MD Start: 10-05-2016 End: 10-05-2016 Icd device prog eval, 1 sngl Garrett Noguera MD Start: 05-31-2016 End: 05-31-2016 Icd device prog eval, 1 sngl Lauren Haynes PA-C Work Phone: Start: 11-26-2015 End: 11-26-2015 Icd device prog eval, 1 sngl Garrett Noguera MD Start: 10-07-2015 End: 10-07-2015 JERI Noguera MD Start: 10-07-2015 End: 10-07-2015 Follow Up Appt 1 year Garrett Noguera MD Start: 05-30-2015 End: 06-02-2015 Icd device prog eval, 1 gl Garrett Noguera MD Start: 11-25-2014 End: 11-25-2014 Icd device progr eval, dual Lauren Haynes PA-C Work Phone: Start: 10-11-2014 End: 10-11-2014 JERI Noguera MD Start: 10-11-2014 End: 10-12-2014 Documentation of current medications Garrett Noguera MD Start: 10-11-2014 End: 10-11-2014 Follow Up Appt 1 year Garrett Noguera MD Start: 06-08-2013 Colonoscopy Laci phan MD Work Phone: Start: 02-29-2012 End: 02-29-2012 Follow Up Appt 1 year Garrett Noguera MD Start: 07-16-2011 End: 07-16-2011 Follow Up Appt 6 months Geo Sorto Arthroscopy of knee Laci Eller Work Phone: Excision of axillary lymph node Laci Eller Work Phone: History of placement of stent for coronary artery disease History of coronary artery stent placement Laci Eller Work Phone: History of placement of stent for coronary artery disease History of coronary artery stent placement Laci Eller MD Work Phone: History of placement of stent for coronary artery disease History of coronary artery stent placement Laci Eller MD Work Phone: Plan of Treatment Date Care Activity Detail Author Start: 04-22-2028 Lipid panel Lipid Screening [facility] Start: 10-09-2027 Lipid 1996 panel - Serum or Plasma Lipid Screening [facility] Start: 10-09-2027 Prostate Cancer Screening Discussion Prostate Cancer Screening Discussion [facility] Start: 10-09-2027 Prostate specific antigen measurement Prostate Cancer Screening Discussion [facility] Start: 11-05-2026 Urine microalbumin profile [facility] Start: 04-22-2026 Diabetes Screening Diabetes Screening [facility] Start: 03-23-2026 LIPID SCREEN LIPID SCREEN [facility] Start: 10-20-2025 Cologuard (FIT-DNA) Cologuard (FIT-DNA) [facility] Start: 10-20-2025 Screening for malignant neoplasm of colon [facility] Start: 10-08-2025 Diabetes Screening Diabetes Screening [facility] Start: 09-17-2025 PROSTATE CANCER SCREENING DISCUSSION PROSTATE CANCER SCREENING DISCUSSION [facility] Start: 02-26-2025 Annual PCP Team Chronic Disease Visit Annual PCP Team Chronic Disease Visit [facility] Start: 11-16-2024 Annual PCP Team Chronic Disease Visit Annual PCP Team Chronic Disease Visit [facility] Start: 10-04-2024 Annual PCP Team Chronic Disease Visit Annual PCP Team Chronic Disease Visit [facility] Start: 10-04-2024 Anxiety Screening Anxiety Screening [facility] Start: 10-04-2024 Depression Screening Depression Screening [facility] Start: 04-04-2024 Annual PCP Team Chronic Disease Visit Annual PCP Team Chronic Disease Visit [facility] Start: 04-04-2024 BP Controlled (<130/80) BP Controlled (<130/80) [facility] Start: 04-02-2024 End: 04-02-2024 Patient encounter procedure 04/02/2024 10:20 AM EST Office Visit [facility] [address] [place] [phone] Laci Eller MD [address] [place], [place] [id number] 6 Month Follow Up [facility] Comment on above: 6 Month Follow Up Start: 02-22-2024 End: 02-22-2024 Patient encounter procedure 02/22/2024 3:00 PM EST Office Visit [facility] [address] [place] [phone] Laci Eller MD [address] [place], [place] [address] 3 month follow up [facility] Comment on above: 3 month follow up Start: 12-18-2023 Covid-19 Vaccine () Covid-19 Vaccine () [facility] Start: 12-18-2023 Influenza vaccination [facility] Start: 10-10-2023 End: 10-10-2023 ambulatory 10/10/2023 8:00 AM EDT Results Only [facility] Station [address] [place] [address] [place] [facility] Start: 10-07-2023 ANNUAL PCP TEAM CHRONIC DISEASE VISIT ANNUAL PCP TEAM CHRONIC DISEASE VISIT [facility] Start: 10-07-2023 BP CONTROLLED (<130/80) BP CONTROLLED (<130/80) [facility] in Start: 10-05-2023 End: 01-04-2024 CBC W Auto Differential panel - Blood COMPLETE BLOOD COUNT AND DIFFERENTIAL Lab Routine Screening for deficiency anemia Expected: 10/05/2023, Expires: 01/04/2024 [facility] Work Phone: Comment on above: Expected: 10/05/2023, Expires: Start: 10-05-2023 End: 01-04-2024 Comprehensive metabolic 2000 panel - Serum or Plasma COMPREHENSIVE METABOLIC PANEL Lab Routine Hypertension, benign Pure hyperglyceridemia Expected: 10/05/2023, Expires: 01/04/2024 [facility] Comment on above: Expected: 10/05/2023, Expires: 4 Start: 10-05-2023 End: 01-04-2024 Lipid 1996 panel - Serum or Plasma LIPID PANEL BASIC Lab Routine Pure hyperglyceridemia Expected: 10/05/2023, Expires: 01/04/2024 [facility] Comment on above: Expected: 10/05/2023, Expires: 4 Start: 10-05-2023 End: 01-04-2024 PSA/PROSTATE SPECIFIC ANTIGEN SCREENING PSA/PROSTATE SPECIFIC ANTIGEN SCREENING Lab Routine Screening PSA (prostate specific antigen) Expected: 10/05/2023, Expires: 01/04/2024 [facility] Comment on above: Expected: 10/05/2023, Expires: 4 Start: 09-18-2023 DIABETES SCREEN DIABETES SCREEN [facility] Start: 06-08-2023 Colonoscopy COLONOSCOPY [facility] Start: 06-08-2023 COLORECTAL CANCER SCREENING COLORECTAL CANCER SCREENING [facility] Start: 06-08-2023 Screening for malignant neoplasm of colon [facility] Start: 04-18-2023 Depression Assessment Depression Assessment [facility] Start: 04-05-2023 ANNUAL PCP TEAM CHRONIC DISEASE VISIT ANNUAL PCP TEAM CHRONIC DISEASE VISIT [facility] Start: 2023 RSV Vaccine (1 - 1-dose 60+ series) RSV Vaccine (1 - 1-dose 60+ series) [facility] Start: 12-17-2022 Covid-19 Vaccine ( season) Covid-19 Vaccine ( season) [facility] Start: 12-17-2022 Influenza [facility] Start: 10-06-2022 End: 12-06-2022 CBC W Auto Differential panel - Blood CBC + DIFF Lab Routine Screening for deficiency anemia Expected: 10/06/2022, Expires: 12/06/2022 [facility] Work Phone: Comment on above: Expected: 10/06/2022, Expires: 3 Start: 10-06-2022 End: 12-06-2022 Comprehensive metabolic 2000 panel - Serum or Plasma COMP METABOLIC PANEL Lab Routine Pure hypercholesterolemia Hypertension, essential Expected: 10/06/2022, Expires: 12/06/2022 [facility] Work Phone: Comment on above: Expected: 10/06/2022, Expires: 3 Start: 10-06-2022 End: 12-06-2022 Lipid 1996 panel - Serum or Plasma LIPID PANEL BASIC Lab Routine Pure hypercholesterolemia Expected: 10/06/2022, Expires: 12/06/2022 [facility] Work Phone: Comment on above: Expected: 10/06/2022, Expires: 3 Start: 10-06-2022 End: 12-06-2022 PSA/PROSTSPECAG SCRN PSA/PROSTSPECAG SCRN Lab Routine Screening PSA (prostate specific antigen) Expected: 10/06/2022, Expires: 12/06/2022 [facility] Work Phone: Comment on above: Expected: 10/06/2022, Expires: 3 Start: 04-18-2022 DEPRESSION ASSESSMENT DEPRESSION ASSESSMENT [facility] Start: 04-05-2022 End: 06-05-2022 Comprehensive metabolic 2000 panel - Serum or Plasma COMP METABOLIC PANEL Lab Routine Mixed hyperlipidemia Hypertension, benign Expected: 04/05/2022, Expires: 06/05/2022 [facility] Work Phone: Comment on above: Expected: 04/05/2022, Expires: 3 Start: 04-05-2022 End: 06-05-2022 Lipid 1996 panel - Serum or Plasma LIPID PANEL BASIC Lab Routine Mixed hyperlipidemia Expected: 04/05/2022, Expires: 06/05/2022 [facility] Work Phone: Comment on above: Expected: 04/05/2022, Expires: 3 Start: 12-17-2021 Influenza vaccination INFLUENZA (#1) [facility] Start: 05-17-2021 COVID-19 VACCINE (4 - Booster for Pfizer series) COVID-19 VACCINE (4 - Booster for Pfizer series) [facility] Start: 04-18-2021 DEPRESSION ASSESSMENT DEPRESSION ASSESSMENT [facility] Start: 10-04-2017 End: 10-04-2017 Appointment Appointment [facility] Work Phone: Start: 03-29-2017 End: 03-29-2017 Appointment [facility] Work Phone: Start: 10-05-2016 End: 10-05-2016 Appointment Appointment [facility] Work Phone: Start: 10-05-2016 End: 10-05-2016 [employer] [facility] Work Phone: Start: 10-05-2016 End: 10-05-2016 Follow Up Appt 1 year Follow Up Appt 1 year [facility] Work Phone: Start: 10-05-2016 End: 10-05-2016 Follow Up Appt 6 months Follow Up Appt 6 months [facility] Work Phone: Start: 10-05-2016 End: 10-05-2016 Pacer Clinic [facility] Work Phone: Start: 11-26-2015 End: 11-26-2015 Follow Up Appt 6 months Follow Up Appt 6 months [facility] Work Phone: Start: 11-26-2015 End: 11-26-2015 Pacer Clinic [facility] Work Phone: Start: 10-07-2015 End: 10-07-2015 [facility] [employer] [facility] Work Phone: Start: 10-07-2015 End: 10-07-2015 Follow Up Appt 1 year Follow Up Appt 1 year [facility] Work Phone: Start: 05-30-2015 End: 06-02-2015 Follow Up Appt 3 months Follow Up Appt 3 months [facility] Work Phone: Start: 05-30-2015 End: 06-02-2015 Pacer Clinic Pacer Clinic [facility] Work Phone: Start: 11-25-2014 End: 11-25-2014 Follow Up Appt 6 months Follow Up Appt 6 months [facility] Work Phone: Start: 11-25-2014 End: 11-25-2014 Pacer Clinic Pacer Clinic [facility] Work Phone: Start: 10-11-2014 End: 10-11-2014 [employer] [facility] Work Phone: Start: 10-11-2014 End: 10-11-2014 Device Interrogation Device Interrogation [facility] Work Phone: Start: 10-11-2014 End: 10-11-2014 Follow Up Appt 1 year Follow Up Appt 1 year [facility] Work Phone: Start: 06-08-2014 Screening for malignant neoplasm of colon Colonoscopy [facility] Start: 03-19-2014 End: 03-19-2014 Cardiac Referral Cardiac Referral [address], [address], [place], [address] [facility] Work Phone: Start: 03-12-2014 End: 03-12-2014 [employer] [facility] Work Phone: Start: 03-12-2014 End: 03-12-2014 Follow Up Appt 6 months Follow Up Appt 6 months [facility] Work Phone: Start: 03-12-2014 End: 03-13-2014 Follow Up Appt Other Follow Up Appt Other [facility] Work Phone: Start: 2013 Pneumococcal Vaccine: 50+ (1 of 1 - PCV) Pneumococcal Vaccine: 50+ (1 of 1 - PCV) [facility] Start: 2013 SHINGRIX VACCINE (1 of 2) SHINGRIX VACCINE (1 of 2) [facility] Start: 03-06-2013 End: 03-06-2013 [employer] MA[employer] [facility] Work Phone: Start: 03-06-2013 End: 03-29-2013 Echocardiography Echocardiogram (complete) [facility] Work Phone: Start: 03-06-2013 End: 03-06-2013 Electrocardiogram, complete EKG (In office) [facility] Work Phone: Start: 03-06-2013 End: 03-06-2013 Follow Up Appt 1 year Follow Up Appt 1 year [facility] Work Phone: Start: 02-29-2012 End: 02-29-2012 Follow Up Appt 1 year Follow Up Appt 1 year [facility] Work Phone: Start: 07-16-2011 End: 07-16-2011 Follow Up Appt 6 months Follow Up Appt 6 months [facility] Work Phone: Start: 2008 COLOGUARD (FIT-DNA) COLOGUARD (FIT-DNA) [facility] Start: [address] COLONOGRAPHY [facility] Start: 2008 FECAL OCCULT BLOOD FECAL OCCULT BLOOD [facility] Start: 2008 Screening for malignant neoplasm of colon [facility] Start: 2008 SIGMOIDOSCOPY SIGMOIDOSCOPY [facility] Start: 08-26-2001 Urine microalbumin profile DTAP,TDAP,TD (3 - Tdap) [facility] Start: 1981 BP CONTROLLED (<130/80) BP CONTROLLED (<130/80) [facility] Start: 1981 HEPATITIS C SCREENING HEPATITIS C SCREENING [facility] Start: 1981 Hepatitis C screening Hepatitis C Screening [facility] Start: 1981 HIV SCREENING HIV SCREENING [facility] Start: 1981 HIV screening HIV Screening [facility] COLOGUARD COLOGUARD Lab Ro utidoug Screening for colon cancer Ordered: 10/06/2022 [facility] Work Phone: Comment on above: Ordered: 10/06/2022 [facility] Immunizations Immunization Date Immunization Notes Care Provider Severo dominguez 04-15-2022 Influenza, injectabl e, Madin [place] Canine Kidney, preservative free, quadrivalent Laci Eller MD Work Phone: [facility] 04-15-2022 influenza virus vacc ine, unspecified formulation Ccf Provider [facility] 03-22-2021 Pfizer-BioNTech COVI D-19 Vacc 30 MCG/0.3ML Intramuscular Suspension Laci Eller Work Phone: [facility] Work Phone: 01-31-2021 Seasonal, quadrivale nt, recombinant, injectable influenza vaccine, preservative free Laci Yolanda Rafita Work Phone: [facility] 01-26-2021 influenza virus vacc ine, unspecified formulation Laci Eller MD Work Phone: [facility] 07-04-2020 Pfizer-BioNTech COVI D-19 Vacc 30 MCG/0.3ML Intramuscular Suspension Laci Gibsonon Work Phone: [facility]xxc[facility]op[facility] Work Phone: 06-13-2020 Pfizer-BioNTech COVI D-19 Vacc 30 MCG/0.3ML Intramuscular Suspension Laci Guerrero Rafita Work Phone: [facility]Bgfctppvco-Xgbkw in Work Phone: 03-28-2018 Influenza, injectabl e, Madin Jy[place] Canine Kidney, preservative free, quadrivalent Laci Eller MD Work Phone: [facility] 04-07-2017 influenza, injectabl e, quadrivalent, preservative free Laci Eller MD Work Phone: [facility] 11-05-2016 tetanus toxoid, redu jacinta diphtheria toxoid, and acellular pertussis vaccine, adsorbed Laci Eller Work Phone: [facility] 04-07-2012 influenza, seasonal, injectable Laci Eller Work Phone: [facility] 05-24-1994 hepatitis B vaccine, adult dosage Laci Eller MD Work Phone: [facility] 08-27-1991 diphtheria and tetan us toxoids, adsorbed for pediatric use Laci Eller MD Work Phone: [facility] 03-12-1988 diphtheria and tetan us toxoids, adsorbed for pediatric use Laci Eller MD Work Phone: [facility] Payers Date Payer Category Payer Self-pay [id number] 2022 Private Health Insurance [employer] [id number] 2022 Unknown 2018 Unknown [id number] 2002 Unknown [id number] 1965 Unknown [id number] Unknown [id number] Unknown [id number] Unknown [id number] 462 Unknown [id number]. 462 Unknown [id number]. 462 Unknown [id number]. 462 Unknown [id number] 462 Unknown [id number] 462 Unknown [id number] 462 Unknown [id number]. 462 Unknown [id number]. 462 Unknown [id number] 462 Unknown [id number] 462 Social History Date Type Detail Facility Start: 10-06-2022 End: 10-05-2023 Never a smoker Never a smoker [facility] Start: 09-08-2021 End: 11-23-2022 Tobacco smoking status [facility] Unknown if ever smoked [facility] Start: 1965 Sex Assigned At Male [facility] Start: 07-14-2023 Tobacco smoking status NVIS Never smoked tobacco [facility] Start: 04-05-2022 End: 02-27-2024 Alcohol intake Current drinker of alcohol (finding) [facility] Start: 04-05-2022 Alcohol Comment occassionally [facility] Start: 1965 Sex Assigned At Not on file [facility] Start: 10-06-2022 History SDOH Alcohol Frequency 4 [facility] Start: 10-06-2022 History SDOH Alcohol Std Drinks 1 [facility] Start: 10-06-2022 History SDOH Social Connections Phone 5 [facility] Start: 10-06-2022 History SDOH Social Connections Get Together 2 [facility] Start: 10-06-2022 History SDOH Social Connections Yazdanism 3 [facility] Start: 10-06-2022 History SDOH Physical Activity DPW 0 [facility] Start: 10-06-2022 Education 18 [facility] Start: 10-06-2022 End: 10-05-2023 Social connection and isolation panel [facility] Do you belong to any clubs or organizations such as yazidi groups, unions, fraternal or athletic groups, or school groups? Yes [facility] Are you now , , , , never or living with a partner? [facility] How often to you hav e a drink containing alcohol? 2-3 time sa week [facility] How many standard dr inks containing alcohol do you have on a typical day? 1 or 2 [facility] How often do you hav e 6 or more drinks on 1 occasion? Never [facility] How hard is it for y ou to pay for the very basics like food, housing, medical care, and heating Not hard at all [facility] Do you feel stress - tense, restless, nervous, or anxious, or unable to sleep at night because your mind is troubled all the time - these days [OSQ] Not at all [facility] (I/We) worried wheth er (my/our) food would run out before (I/we) got money to buy more. Never true [facility] In the past 12 month s, was there a time when you were not able to pay the mortgage or rent on time? No [facility] Start: 10-06-2022 Gender identity Identifies as male gender (finding) [facility] Start: 10-06-2022 Sexual orientation Heterosexual (finding) [facility] Medical Equipment Procedure Code Equipment Code Equipment Origin al Text Equipment Identifier Dates [id number] a Xt [id number] Start: 07-24-2014 Functional Status Date Assessment Result Facility 10-14-2014 Are you deaf, or do you have serious difficulty hearing No 10/14/2014 10:54 AM Brianda Roblero LPN No [facility] 10-14-2014 Are you blind, or do you have serious difficulty seeing, even when wearing glasses No 10/14/2014 10:54 AM Brianda Roblero LPN No [facility] 10-14-2014 Do you have serious difficulty walking or climbing stairs No 10/14/2014 10:54 AM Brianda Roblero LPN No [facility] 10-14-2014 Do you have difficul ty dressing or bathing No 10/14/2014 10:54 AM Brianda Roblero LPN [facility] 10-14-2014 Because of a physica l, mental, or emotional condition, do you have difficulty doing errands alone such as visiting a physician's office or shopping No 10/14/2014 10:54 AM EDT Brianda Hinds LPN No [facility] Mental Status Date Assessment Result Facility 10-14-2014 Because of a physica l, mental, or emotional condition, do you have serious difficulty concentrating, remembering, or making decisions No 10/14/2014 10:54 AM EDT Brianda Hinds LPN No [facility] Clinical Notes 04-09-2021 to 11-20-2024 Note Date & Type Note Facility 11-20-2024 Progress note [facility] 11-20-2024 Progress note Note Date/Time November 20, 2024 2:12pm [facility] [address] [place] [address] OFFICE VISIT Date of Service: 11/20/24 MR#: [id number] Acct: [id number] Patient: CARLOS BRIONES ep #: [id number] : 1965 Provider: JULIO Melgar Age/Sex: 59/M Location: [facility] Status: Signed Intake Vital Signs 08/02/24 08:33 Height 1.83 m Weight: 97.522 kg BMI 29.1 BP 132/76 H Blood Pressure Location Rt brachial Position Sitting Respiration 18 Pulse 51 L Pulse Source Monitor Pulse Oximetry (%) 94 Oxygen Delivery Method room air Intake Visit Reasons: Cough Chief Complaint: sinus pressure Allergies cefadroxil (From Duricef) Allergy (Severe, Verified 08/02/24 08:52) Rash [facility] Medical History Paroxysmal atrial fibrillation Myocardial fibrosis determined by magnetic resonance imaging (06/01/14) Atherosclerotic heart disease of [place] coronary artery without angina pectoris Atrial tachycardia Hyperlipidemia Non-sustained ventricular tachycardia Frequent PVCs Obesity Syncope History of melanoma Hypertrophic cardiomyopathy Atrial arrhythmia Surgical History Lipoma History of radiofrequency ablation procedure for cardiac arrhythmia (05/08/21) History of coronary artery stent placement (03/05/21) History of melanoma excision History of left heart catheterization (06/04/05) History of implantable cardiac defibrillator (ICD) (07/24/14) History of arthroscopic knee surgery History of shoulder surgery Family History Father CAD (coronary artery disease) Hx of CABG Myocardial infarction, Onset Age: 41 Uncle CAD (coronary artery disease) Myocardial infarction, Onset Age: 40 Social History Smoking Status: Never smoker alcohol intake: current details: Rare substance use type: does not use HPI HPI Chief Complaint: sinus pressure Details: CARLOS BRIONES, is a 59 M who presents to virtual visit today for sinus pressure. Pt started to feel ill on . He has increased frontal and maxillary pressure. After this he started to have fevers noting a temperature upto 102.8F at home. This am his temp was 99.6F. He has chills and body aches along with that. He also has a cough that is productive of mucus. He has no SOB.He has no runny nose, ear ache, or sore throat. He has post nasal drainage. He is taking motrin prn for aches and fever. ROS Const Constitutional: Positive for body ache, chills, fatigue and fever(s) ENT ENT: Positive for sinus pressure and sinus pain; No ear or mastoid pain, nasal congestion or sore throat Resp Respiratory: Positive for cough Cough: Yes productive; No shortness of breath or wheezing Endo Endocrine: Positive for fatigue Aller/Imm Allergy/Immunologic: No wheezing Exam Const General: cooperative, healthy appearing, comfortable, no acute distress, well developed and well groomed Nutritional Appearance: average body habitus and well nourished Orientation: alert, awake and oriented x3 HENMT Head: normocephalic and atraumatic Face and sinus: no sinus tenderness Resp Effort & Inspection: normal respiratory effort, able to speak in complete sentences, symmetric chest movement and no cough Coding Level of Care Code Off vis,est,level 3 Diagnoses Acute sinusitis J01.90 Assessment and Plan Assessment and Plan (1) Acute sinusitis: Status: Acute Plan: Approx 6 day hx of sinus pressure, post nasal drainage, productive cough withoutsob, fevers up to 102.8F, chills, body ache. NO SOB. At this time his presentation is c/w acute sinusitis, and he will be placed on amox/clav (pt has allergy to duricef however notes that he has had amox without any issues in the past), and mucinex prn cough/congestion. I have stressed that if he develops worsening symptoms especially SOB then he will need seen in person for a more thorough evaluation. pmhx CHF, CAD, AICD in place, Afib, JANNETH, HLD complicating the above as comorbidity. Time spent on virtual visit 10 minutes. Disclaimer: This visit was performed virtually via live audio and video at the request of the patient. As such the physical exam and testing is limited by whatis able to be seen through the patient's camera and lighting which may vary in quality, and limited by what the patient is able to perform via clinician instruction. If there is no significant improvement or new complications, the patient should follow up [id number] with a clinician of the appropriate level of care. Medications: New amoxicillin-pot clavulanate 875-125 mg 1 TAB PO Q12H 14 tabs 0RF dextromethorphan-guaifenesin 30-600 mg 1 TAB PO Q12H PRN 14 tabs 0RF cough 11/20/24 1412 <Electronically signed by Felipe KIM> Date _ Felipe KIM Cosign Signature: Date (if applicable) CC: ~ [facility] Work Phone: 1(107) 657-367007-21-2025 Procedure [facility] [address] [place], [place] [address] Pacemaker Check Date of Service: 11/05/24 1640 MR#: [id number] Acct: [id number] Name: CARLOS BRIONES Rep #: [id number] : 1965 From: Alexandrea Pretty jose Age/Sex: 59/M Location: [facility] Status: Signed Assessment and Plan Assessment and Plan (1) History of radiofrequency ablation procedure for cardiac arrhythmia: Status: Acute Comment: Successful ablation for atrial fibrillation and homogeneization of scar area in the spetal area. The patient tolerated the procedure well with no immediate complications.05/08/2021 (2) Paroxysmal atrial fibrillation: Status: Acute Comment: per 30 day event monitor 03/05/21 (3) History of implantable cardiac defibrillator (ICD): Status: Chronic (4) Hypertrophic cardiomyopathy: Status: Chronic 11/05/24 1644 > Date _ Alexandrea Cedeno Scott Signature: Date (if applicable) CC: ~ [facility]04-17-2025 Evaluation note* Diagnosis Onset Date Resolution Status Admit Date Paroxysmal atrial fibrillation acute August 02, 2024 8:13am History of implantable cardiac defibrillator (ICD) July 24, 2014 chronic Apri l 2024 8:13am Hypertrophic cardiomyopathy chronic August 02, 2024 8:13am Non-sustained ventricular tachycardia chronic August 02, 2024 8:13am History of radiofrequency ablation procedure for cardiac arrhythmia May 08, 2021 acute July 8:13am Paroxysmal atrial fibrillation acute August 02, 2024 8:13am Atherosclerotic heart disease of [place] coronary artery without angina pectoris chronic August 02, 2024 8:13am History of implantable cardiac defibrillator (ICD) July 24, 2014 chronic Apri l 2024 8:13am Hyperlipidemia chronic July 8:13am Hypertrophic cardiomyopathy chronic August 02, 2024 8:13am JANNETH (obstructive sleep apnea) chronic August 02, 2024 8:13am History of radiofrequency ablation procedure for cardiac arrhythmia May 08, 2021 acute November 05, 2024 3:02pm Paroxysmal atrial fibrillation acute November 05, 2024 3:02pm History of implantable cardiac defibrillator (ICD) July 24, 2014 chronic November 05, 2024 3:02pm Hypertrophic cardiomyopathy chronic November 05, 2024 3:02pm Acute sinusitis acute November 2:00pm [employer] Work Phone: 1(347) 290-756904-03-2025 Evaluation note* Diagnosis Onset Date Resolution Status Admit Date Obesity chronic July 19 7:44am JANNETH (obstructive sleep apnea) chroni c July 19, 2024 7:44am Paroxysmal atrial fibrillation acute August 02, 2024 8:13am History of implantable cardiac defibrillator (ICD) July 24, 2014 chronic Apri l 2024 8:13am Hypertrophic cardiomyopathy chronic August 02, 2024 8:13am Non-sustained ventricular tachycardia chronic August 02, 2024 8:13am History of radiofrequency ablation procedure for cardiac arrhythmia May 08, 2021 acute July 8:13am Paroxysmal atrial fibrillation acute August 02, 2024 8:13am Atherosclerotic heart diseas e of [place] coronary artery without angina pectoris chronic August 022024 8:13am History of implantable cardiac defibrillator (ICD) July 24, 2014 chronic Apri l 2024 8:13am Hyperlipidemia chronic July 8:13am Hypertrophic cardiomyopathy chronic August 02, 2024 8:13am JANNETH (obstructive sleep apnea) chroni c August 02, 2024 8:13am History of radiofrequency ablation procedure for cardiac arrhythmia May 08, 2021 acute November 05, 2024 3:02pm Paroxysmal atrial fibrillation acute November 05, 2024 3:02pm History of implantable cardiac defibrillator (ICD) July 24, 2014 chronic November 05, 2024 3:02pm Hypertrophic cardiomyopathy chronic November 05, 2024 3:02pm [employer] Work Phone: 1(507) 295-371211-17-2024 NoteHNO ID: [id number] Author: LACI ELLER MD Service: ? Author Type: Physician Type: Progress Notes Filed: 03/04/2024 17:20 Note Text: Maryann Briones is a 58 year old male. Neyda presents today for follow-up for his obesity. He was placed on Mounjaro 2.5 mg. He is tolerating this well. He has lost 6 pounds in 1 month. Review of Systems Constitutional: Negative. HENT: Negative. Eyes: Negative. Respiratory: Negative. Cardiovascular: Negative. Gastrointestinal: Negative. Endocrine: Negative. Genitourinary: Negative. Musculoskeletal: Negative. Skin: Negative. Allergic/Immunologic: Negative. Neurological: Negative. Hematological: Negative. Psychiatric/Behavioral: Negative. PAST SURGICAL HISTORY Procedure Laterality Date PAST SURGICAL HISTORY OF right shoulder repair PAST SURGICAL HISTORY OF left knee surgery PAST SURGICAL HISTORY OF 04/09/10 Left knee meniscus repair PAST SURGICAL HISTORY OF 05/28/10 Excision back AND chest skin cancer PAST SURGICAL HISTORY OF 2010 Excision lymph nodes left axilla VASECTOMY UNI/BI SPX W/POSTOP SEMEN EXAMS PAST MEDICAL HISTORY Diagnosis Date H/O Malignant melanoma 07/16/2011 History of coronary artery stent placement 06/20/2020 Hyperlipidemia 03/23/2021 Hypertension, benign 10/08/2016 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) 04/17/2006 Melanoma (HCC) Mitral valve disease 07/31/2010 Neoplasm of uncertain behavior of skin 11/17/2010 Other lymphedema 11/05/2011 Other primary cardiomyopathies HCM Palpitations 04/05/2022 Personal history of melanoma in-situ 04/03/2019 Pure hyperglyceridemia 10/08/2016 FAMILY HISTORY Problem Relation Age of Onset other (CAD s/p CABG, stents [Other]) Father age 65, .First [place] at age of 41 Coronary Artery Disease Paternal Grandfather Ischemic Heart Disease Paternal Uncle Cancer Mother at age 76 - mediastinal tumor Social History Tobacco Use Smoking status: Never Smokeless tobacco: Never Vaping Use Vaping status: Never Used Substance Use Topics Alcohol use: Yes Comment: occassionally Drug use: No ALLERGIES Allergen Reactions Ancef [Cefazolin] Rash, Itching MEDICATIONS: ELIQUIS 5 mg tab(s) Take 5 mg by mouth twice daily. atorvastatin (LIPITOR) 40 mg tablet Take 40 mg by mouth once daily. lisinopril (ZESTRIL, PRINIVIL) 5 mg tablet Take 5 mg by mouth once daily. metoprolol succinate ER (TOPROL XL) 100 mg Tb24 Take one tablet in the morning and one-half tablet in the evening daily. (Patient taking differently: Take 100 mg by mouth two times a day.) tirzepatide (MOUNJARO) 5 mg/0.5 mL pen injector Inject 5 mg subcutaneously one time a week. IBUPROFEN ORAL as necessary Allergies, past surgical history, family history and past medical history were reviewed per this encounter. Medications were reviewed and verified. 02/21/2024 02/27/2024 INTAKE PAIN ASSESSMENT Are you having pain associated with your visit today? No No If pain assessment is 0, no action needed. If pain assessment is positive, please see assessment and plain. Objective BP 130/80 (BP Site: Right Arm, BP Position: Sitting, BP Cuff Size: Regular Adult) Pulse 64 Temp 36.2 ?C (97.2 ?F) (Temporal) Resp 18 Ht 182.9 cm (6') Wt 109.3 kg (241 lb) SpO2 95% BMI 32.69 kg/m? Physical Exam Assessment and Plan Encounter Diagnosis ICD-10-CM 1. Class 1 obesity due to excess calories with serious comorbidity and body mass index (BMI) of 32.0 to 32.9 in adult E66.811 E66.09 Z68.32 Increase tirzepatide to 5 mg weekly. Improve diet. Exercise as tolerated. Laci Eller MD March 04, 2024[facility]11-17-2024 History of Present illness Narrative* Laci Eller MD - 03/04/2024 5:16 PM EST Subjective Carlos Briones is a 58 year old male. Neyda presents today for follow-up for his obesity. He was placed on Mounjaro 2.5 mg. He is tolerating this well. He has lost 6 pounds in 1 month. Review of Systems Constitutional: Negative. HENT: Negative. Eyes: Negative. Respiratory: Negative. Cardiovascular: Negative. Gastrointestinal: Negative. Endocrine: Negative. Genitourinary: Negative. Musculoskeletal: Negative. Skin: Negative. Allergic/Immunologic: Negative. Neurological: Negative. Hematological: Negative. Psychiatric/Behavioral: Negative. 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) 04/17/2006 Melanoma (HCC) Mitral valve disease 07/31/2010 Neoplasm of uncertain behavior of skin 11/17/2010 Other lymphedema 11/05/2011 Other primary cardiomyopathies HCM Palpitations 04/05/2022 Personal history of melanoma in-situ 04/03/2019 Pure hyperglyceridemia 10/08/2016 FAMILY HISTORY Problem Relation Age of Onset other (CAD s/p CABG, stents [Other]) Father age 65, .First [place] at age of 41 Coronary Artery Disease Paternal Grandfather Ischemic Heart Disease Paternal Uncle Cancer Mother at age 76 - mediastinal tumor Social History Tobacco Use Smoking status: Never Smokeless tobacco: Never Vaping Use Vaping status: Never Used Substance Use Topics Alcohol use: Yes Comment: occassionally Drug use: No ALLERGIES Allergen Reactions Ancef [Cefazolin] Rash, Itching MEDICATIONS: ELIQUIS 5 mg tab(s) Take 5 mg by mouth twice daily. atorvastatin (LIPITOR) 40 mg tablet Take 40 mg by mouth once daily. lisinopril (ZESTRIL, PRINIVIL) 5 mg tablet Take 5 mg by mouth once daily. metoprolol succinate ER (TOPROL XL) 100 mg Tb24 Take one tablet in the morning and one-half tablet in the evening daily. (Patient taking differently: Take 100 mg by mouth two times a day.) tirzepatide (MOUNJARO) 5 mg/0.5 mL pen injector Inject 5 mg subcutaneously one time a week. IBUPROFEN ORAL as necessary Allergies, past surgical history, family history and past medical history were reviewed per this encounter. Medications were reviewed and verified. 02/21/2024 02/27/2024 INTAKE PAIN ASSESSMENT Are you having pain associated with your visit today? No No If pain assessment is 0, no action needed. If pain assessment is positive, please see assessment and plain. Objective BP 130/80 (BP Site: Right Arm, BP Position: Sitting, BP Cuff Size: Regular Adult) Pulse 64 Temp36.2 C (97.2 F) (Temporal) Resp 18 Ht 182.9 cm (6') Wt 109.3 kg (241 lb) SpO2 95% BMI 32.69 kg/m Physical Exam Assessment and Plan Encounter Diagnosis ICD-10-CM 1. Class 1 obesity due to excess calories with serious comorbidity and body mass index (BMI) of 32.0 to 32.9 in adult E66.811 E66.09 Z68.32 Increase tirzepatide to 5 mg weekly. Improve diet. Exercise as tolerated. Laci Eller MD March 04, 2024 documented in this encounterUniversity [facility]11-[facility] Nurse Note* Elena Escobar MA - 02/27/2024 3:34 PM EST Pt is here today for his 3 month follow up. Pt would like to increase the dose of tirzepatide to the compounding pharmacy. [facility]11-11-[facility] Nurse Note* Elena Escobar MA - 02/27/2024 3:34 PM EST Pt is here today for his 3 month follow up. Pt would like to increase the dose of tirzepatide to the compounding pharmacy. documented in this encounterUniversity Hospitals [facility]08-26-2024 Telephone encounter Note * Telephone Encounter - Deepika Hickman LPN - 12/12/2023 10:26 AM EDT Patient called requesting the following refill. Requested Prescriptions Pending Prescriptions Disp Refills tirzepatide (MOUNJARO) 2.5 mg/0.5 mL pen injector 2 mL 1 Sig: Inject 2.5 mg subcutaneously one time a week. Patient last appointment: 11/17/2023 Next appointment 02/22/2024 Patient Phone numbers: [phone] (home) [phone] (work) Request is for script(s) to be escript to [facility]. Deepika Hickman LPN [facility]08-26-2024 Miscellaneous Notes* Telephone Encounter - Deepika Hickman LPN - 12/12/2023 10:26 AM EDT Patient called requesting the following refill. Requested Prescriptions Pending Prescriptions Disp Refills tirzepatide (MOUNJARO) 2.5 mg/0.5 mL pen injector 2 mL 1 Sig: Inject 2.5 mg subcutaneously one time a week. Patient last appointment: 11/17/2023 Next appointment 02/22/2024 Patient Phone numbers: [phone] (home) [phone] (work) Request is for script(s) to be escript to [facility]. Deepika Hickman LPN documented in this encounterUniversity Hospitals [facility]08-05-2024 NoteHNO ID: [id number] Author: LACI ELLER MD Service: ? Author Type: Physician Type: Progress Notes Filed: 11/21/2023 10:04 Note Text: Subjective Carlos Briones is a 58 year old male. Neyda presents today for evaluation of his obesity. His BMI is 33.5. His weight is 247 pounds. He is interested in weight loss medication. Review of Systems Constitutional: Negative. HENT: Negative. Eyes: Negative. Respiratory: Negative. Cardiovascular: Negative. Gastrointestinal: Negative. Endocrine: Negative. Genitourinary: Negative. Musculoskeletal: Negative. Skin: Negative. Allergic/Immunologic: Negative. Neurological: Negative. Hematological: Negative. Psychiatric/Behavioral: Negative. PAST SURGICAL HISTORY No date: PAST SURGICAL HISTORY OF Comment: right shoulder repair No date: PAST SURGICAL HISTORY OF Comment: left knee surgery 04/09/10: PAST SURGICAL HISTORY OF Comment: Left knee meniscus repair 05/28/10: PAST SURGICAL HISTORY OF Comment: Excision back AND chest skin cancer 2010: PAST SURGICAL HISTORY OF Comment: Excision lymph nodes left axilla No date: VASECTOMY UNI/BI SPX W/POSTOP SEMEN EXAMS PAST MEDICAL HISTORY 07/16/2011: H/O Malignant melanoma 06/20/2020: History of coronary artery stent placement 03/23/2021: Hyperlipidemia 10/08/2016: Hypertension, benign 04/17/2006: 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) No date: Melanoma (HCC) 07/31/2010: Mitral valve disease 11/17/2010: Neoplasm of uncertain behavior of skin 11/05/2011: Other lymphedema No date: Other primary cardiomyopathies Comment: HCM 04/05/2022: Palpitations 04/03/2019: Personal history of melanoma in-situ 10/08/2016: Pure hyperglyceridemia FAMILY HISTORY Problem Relation Age of Onset other (CAD s/p CABG, stents [Other]) Father age 65, .First [place] at age of 41 Coronary Artery Disease Paternal Grandfather Ischemic Heart Disease Paternal Uncle Cancer Mother at age 76 - mediastinal tumor Social History Tobacco Use Smoking status: Never Smokeless tobacco: Never Vaping Use Vaping Use: Never used Substance Use Topics Alcohol use: Yes Comment: occassionally Drug use: No ALLERGIES Allergen Reactions Ancef [Cefazolin] Rash, Itching MEDICATIONS: ELIQUIS 5 mg tab(s) Take 5 mg by mouth twice daily. atorvastatin (LIPITOR) 40 mg tablet Take 40 mg by mouth once daily. lisinopril (ZESTRIL, PRINIVIL) 5 mg tablet Take 5 mg by mouth once daily. metoprolol succinate ER (TOPROL XL) 100 mg Tb24 Take one tablet in the morning and one-half tablet in the evening daily. (Patient taking differently: Take 100 mg by mouth two times a day.) IBUPROFEN ORAL as necessary tirzepatide (MOUNJARO) 2.5 mg/0.5 mL pen injector Inject 2.5 mg subcutaneously one time a week. Allergies, past surgical history, family history and past medical history were reviewed per this encounter. Medications were reviewed and verified. Objective BP 138/82 (BP Site: Left Arm, BP Position: Sitting, BP Cuff Size: Large Adult) Pulse (!) 58 Temp 36.8 ?C (98.2 ?F) (Temporal) Resp 18 Ht 182.9 cm (6') Wt 112.2 kg (247 lb 4 oz) SpO2 96% BMI 33.53 kg/m? Physical Exam Vitals reviewed. Constitutional: Appearance: Normal appearance. HENT: Head: Normocephalic and atraumatic. Nose: Nose normal. Eyes: Extraocular Movements: Extraocular movements intact. Pupils: Pupils are equal, round, and reactive to light. Cardiovascular: Rate and Rhythm: Normal rate and regular rhythm. Pulmonary: Effort: Pulmonary effort is normal. Breath sounds: Normal breath sounds. Abdominal: General: Bowel sounds are normal. Palpations: Abdomen is soft. Musculoskeletal: General: Normal range of motion. Cervical back: Normal range of motion and neck supple. Skin: General: Skin is warm and dry. Capillary Refill: Capillary refill takes less than 2 seconds. Neurological: General: No focal deficit present. Mental Status: He is alert and oriented to person, place, and time. Mental status is at baseline. Psychiatric: Mood and Affect: Mood normal. Behavior: Behavior normal. Assessment and Plan Encounter Diagnosis ICD-10-CM 1. Class 1 obesity due to excess calories with serious comorbidity and body mass index (BMI) of 33.0 to 33.9 in adult E66.09 Z68.33 2. Coronary artery disease involving [place] coronary artery of [place] heart without angina pectoris I25.10 3. History of coronary artery stent placement Z95.5 4. Hypertrophic obstructive cardiomyopathy (HOCM) ([facility]) I42.1 5. Hypertension, benign I10 Begin tirzepatide. Titrate to improvement of weight. Otherwise continue present medications. Monitor blood pressure regularly. Exercise as tolerated. Maintain good diet. Follow-up in 1 month. Laci Eller, [facility]08-05-2024 History of Present illness Narrative* Laci Eller MD - 11/21/2023 10:00 AM EDT Subjective Carlos Briones is a 58 year old male. Neyda presents today for evaluation of his obesity. His BMI is 33.5. His weight is 247 pounds. He is interested in weight loss medication. Review of Systems Constitutional: Negative. HENT: Negative. Eyes: Negative. Respiratory: Negative. Cardiovascular: Negative. Gastrointestinal: Negative. Endocrine: Negative. Genitourinary: Negative. Musculoskeletal: Negative. Skin: Negative. Allergic/Immunologic: Negative. Neurological: Negative. Hematological: Negative. Psychiatric/Behavioral: Negative. PAST SURGICAL HISTORY No date: PAST SURGICAL HISTORY OF Comment: right shoulder repair No date: PAST SURGICAL HISTORY OF Comment: left knee surgery 04/09/10: PAST SURGICAL HISTORY OF Comment: Left knee meniscus repair 05/28/10: PAST SURGICAL HISTORY OF Comment: Excision back & chest skin cancer 2010: PAST SURGICAL HISTORY OF Comment: Excision lymph nodes left axilla No date: VASECTOMY UNI/BI SPX W/POSTOP SEMEN EXAMS PAST MEDICAL HISTORY 07/16/2011: H/O Malignant melanoma 06/20/2020: History of coronary artery stent placement 03/23/2021: Hyperlipidemia 10/08/2016: Hypertension, benign 04/17/2006: 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) No date: Melanoma (HCC) 07/31/2010: Mitral valve disease 11/17/2010: Neoplasm of uncertain behavior of skin 11/05/2011: Other lymphedema No date: Other primary cardiomyopathies Comment: HCM 04/05/2022: Palpitations 04/03/2019: Personal history of melanoma in-situ 10/08/2016: Pure hyperglyceridemia FAMILY HISTORY Problem Relation Age of Onset other (CAD s/p CABG, stents [Other]) Father age 65, .First [place] at age of 41 Coronary Artery Disease Paternal Grandfather Ischemic Heart Disease Paternal Uncle Cancer Mother at age 76 - mediastinal tumor Social History Tobacco Use Smoking status: Never Smokeless tobacco: Never Vaping Use Vaping Use: Never used Substance Use Topics Alcohol use: Yes Comment: occassionally Drug use: No ALLERGIES Allergen Reactions Ancef [Cefazolin] Rash, Itching MEDICATIONS: ELIQUIS 5 mg tab(s) Take 5 mg by mouth twice daily. atorvastatin (LIPITOR) 40 mg tablet Take 40 mg by mouth once daily. lisinopril (ZESTRIL, PRINIVIL) 5 mg tablet Take 5 mg by mouth once daily. metoprolol succinate ER (TOPROL XL) 100 mg Tb24 Take one tablet in the morning and one-half tablet in the evening daily. (Patient taking differently: Take 100 mg by mouth two times a day.) IBUPROFEN ORAL as necessary tirzepatide (MOUNJARO) 2.5 mg/0.5 mL pen injector Inject 2.5 mg subcutaneously one time a week. Allergies, past surgical history, family history and past medical history were reviewed per this encounter. Medications were reviewed and verified. Objective BP 138/82 (BP Site: Left Arm, BP Position: Sitting, BP Cuff Size: Large Adult) Pulse (!) 58 Temp 36.8 C (98.2 F) (Temporal) Resp 18 Ht 182.9 cm (6') Wt 112.2 kg (247 lb 4 oz) SpO2 96% BMI 33.53 kg/m Physical Exam Vitals reviewed. Constitutional: Appearance: Normal appearance. HENT: Head: Normocephalic and atraumatic. Nose: Nose normal. Eyes: Extraocular Movements: Extraocular movements intact. Pupils: Pupils are equal, round, and reactive to light. Cardiovascular: Rate and Rhythm: Normal rate and regular rhythm. Pulmonary: Effort: Pulmonary effort is normal. Breath sounds: Normal breath sounds. Abdominal: General: Bowel sounds are normal. Palpations: Abdomen is soft. Musculoskeletal: General: Normal range of motion. Cervical back: Normal range of motion and neck supple. Skin: General: Skin is warm and dry. Capillary Refill: Capillary refill takes less than 2 seconds. Neurological: General: No focal deficit present. Mental Status: He is alert and oriented to person, place, and time. Mental status is at baseline. Psychiatric: Mood and Affect: Mood normal. Behavior: Behavior normal. Assessment and Plan Encounter Diagnosis ICD-10-CM 1. Class 1 obesity due to excess calories with serious comorbidity and body mass index (BMI) of 33.0 to 33.9 in adult E66.09 Z68.33 2. Coronary artery disease involving [place] coronary artery of [place] heart without angina [id number] 3. History of coronary artery stent placement Z95.5 4. Hypertrophic obstructive cardiomyopathy (HOCM) (FORM[facility]LY [facility]) I42.1 5. Hypertension, benign I10 Begin tirzepatide. Titrate to improvement of weight. Otherwise continue present medications. Monitor blood pressure regularly. Exercise as tolerated. Maintain good diet. Follow-up in 1 month. Laci Eller MD * Racheal Mazariegos LPN - 11/17/2023 1:59 PM EDT Patient in the office today wanting to discuss weight loss options. No refills needed. Racheal Mazariegos LPN November 17, 2023 2:12 PM documented in this encounterUniversity [facility]als [facility]08-05-2024 Telephone encounter Note * Telephone Encounter - Lexi Schafer MA - 11/21/2023 9:08 AM EDT Items addressed in this encounter: MyChart Encounter Denied, Mounjaro Only covered when used to treat type 2 diabetes Able to close encounter. Lexi Schafer MA November 21, 2023 9:08 AM 9:08 AM [facility]08-05-2024 Miscellaneous Notes* Telephone Encounter - Lexi Schafer MA - 11/21/2023 9:08 AM EDT Items addressed in this encounter: MyChart Encounter Denied, Mounjaro Only covered when used to treat type 2 diabetes Able to close encounter. Lexi Schafer MA November 21, 2023 9:08 AM 9:08 AM documented in this encounterUniversity Hospitals [facility]08-05-2024 Telephone encounter Note * Telephone Encounter - Lexi Schafer MA - 11/21/2023 9:05 AM EDT Items addressed in this encounter: Prior Authorization Denied, Mounjaro Only covered when used to treat type 2 diabetes Able to close encounter. Lexi Schafer MA November 21, 2023 9:05 AM 9:05 AM [facility]08-05-2024 Miscellaneous Notes* Telephone Encounter - Lexi Schafer MA - 11/21/2023 9:05 AM EDT Items addressed in this encounter: Prior Authorization Denied, Mounjaro Only covered when used to treat type 2 diabetes Able to close encounter. Lexi Schafer MA November 21, 2023 9:05 AM 9:05 AM documented in this encounterUniversity Hospitals [facility]08-05-2024 Telephone encounter Note * Telephone Encounter - Lexi Schafer MA - 11/21/2023 6:39 AM EDT Items addressed in this encounter: Prior Authorization Denied, Mounjaro Not covered when used to treat weight loss Able to close encounter. Lexi Schafer MA November 21, 2023 6:39 AM 6:39 AM [facility]08-05-[facility]24 Miscellaneous Notes* Telephone Encounter - Lexi Schafer MA - 11/21/2023 6:39 AM EDT Items addressed in this encounter: Prior Authorization Denied, Mounjaro Not covered when used to treat weight loss Able to close encounter. Lexi Schafer MA November 21, 2023 6:39 AM 6:39 AM documented in this encounterUniversity Hospitals [facility]08-01-2024 Telephone encounter Note * Telephone Encounter - Lexi Schafer MA - 11/17/2023 2:49 PM EDT Items addressed in this encounter: Prior Authorization Pending mounjaro Epic Able to close encounter. Lexi Schafer MA November 17, 2023 2:49 PM 2:49 PM [facility]08-01-2024 Miscellaneous Notes* Telephone Encounter - Lexi Schafer MA - 11/17/2023 2:49 PM EDT Items addressed in this encounter: Prior Authorization Pending mounjaro Epic Able to close encounter. Lexi Schafer MA November 17, 2023 2:49 PM 2:49 PM documented in this encounterUniversity Hospitals [facility]08-01-2024 NoteHNO ID: [id number] Author: RACHEAL MAZARIEGOS LPN Service: ? Author Type: LICENSED NURSE Type: Progress Notes Filed: 11/21/2023 10:04 Note Text: Patient in the office today wanting to discuss weight loss options. No refills needed. Racheal Mazariegos LPN November 17, 2023 2:12 PM[facility]06-[facility] History of Present illness Narrative* Arabella Araujo LPN - 10/05/2023 2:50 PM EDT Patient in the office today for an annual Wellness exam. Health Maintenance Due: Hepatitis C Screening declined HIV Screening declined Shingrix Vaccine(1 of 2) declined Covid-19 Vaccine( season) declined RSV Vaccine(1 - 1-dose 60+ series) declined No refills needed Arabella Araujo LPN October 05, 2023 2:26 PM * Laci Eller MD - 10/05/2023 2:45 PM EDT Subjective Carlos Briones is a 58 year old male. Neyda presents today for his annual wellness visit. Additionally he follows up for multiple medical problems. See list. His chronic medical problems been stable. Blood pressure is under excellent control on his current regimen. He has no new complaints today. Review of Systems Constitutional: Negative. HENT: Negative. Eyes: Negative. Respiratory: Negative. Cardiovascular: Negative. Gastrointestinal: Negative. Endocrine: Negative. Genitourinary: Negative. Musculoskeletal: Negative. Skin: Negative. Allergic/Immunologic: Negative. Neurological: Negative. Hematological: Negative. Psychiatric/Behavioral: Negative. 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) 04/17/2006 Melanoma (HCC) Mitral valve disease 07/31/2010 Neoplasm of uncertain behavior of skin 11/17/2010 Other lymphedema 11/05/2011 Other primary cardiomyopathies HCM Palpitations 04/05/2022 Personal history of melanoma in-situ 04/03/2019 Pure hyperglyceridemia 10/08/2016 FAMILY HISTORY Problem Relation Age of Onset other (CAD s/p CABG, stents [Other]) Father age 65, .First [place] at age of 41 Coronary Artery Disease Paternal Grandfather Ischemic Heart Disease Paternal Uncle Cancer Mother at age 76 - mediastinal tumor Social History Tobacco Use Smoking status: Never Smokeless tobacco: Never Vaping Use Vaping Use: Never used Substance Use Topics Alcohol use: Yes Comment: occassionally Drug use: No ALLERGIES Allergen Reactions Ancef [Cefazolin] Rash, Itching MEDICATIONS: ELIQUIS 5 mg tab(s) Take 5 mg by mouth twice daily. atorvastatin (LIPITOR) 40 mg tablet Take 40 mg by mouth once daily. lisinopril (ZESTRIL, PRINIVIL) 5 mg tablet Take 5 mg by mouth once daily. metoprolol succinate ER (TOPROL XL) 100 mg Tb24 Take one tablet in the morning and one-half tablet in the evening daily. (Patient taking differently: Take 100 mg by mouth two times a day.) IBUPROFEN ORAL as necessary Allergies, past surgical history, family history and past medical history were reviewed per this encounter. Medications were reviewed and verified. Objective BP 132/82 (BP Site: Left Arm, BP Position: Sitting, BP Cuff Size: Regular Adult) Pulse 76 Temp 36.4 C (97.6 F) (Temporal) Resp 18 Ht 182.9 cm (6') Wt 111.6 kg (246 lb) SpO2 97% BMI 33.36 kg/m Physical Exam Vitals reviewed. Constitutional: Appearance: Normal appearance. HENT: Head: Normocephalic and atraumatic. Nose: Nose normal. Eyes: Extraocular Movements: Extraocular movements intact. Pupils: Pupils are equal, round, and reactive to light. Cardiovascular: Rate and Rhythm: Normal rate and regular rhythm. Pulmonary: Effort: Pulmonary effort is normal. Breath sounds: Normal breath sounds. Abdominal: General: Bowel sounds are normal. Palpations: Abdomen is soft. Musculoskeletal: General: Normal range of motion. Cervical back: Normal range of motion and neck supple. Skin: General: Skin is warm and dry. Capillary Refill: Capillary refill takes less than 2 seconds. Neurological: General: No focal deficit present. Mental Status: He is alert and oriented to person, place, and time. Mental status is at baseline. Psychiatric: Mood and Affect: Mood normal. Behavior: Behavior normal. Assessment and Plan Encounter Diagnosis ICD-10-CM 1. Wellness examination Z00.00 2. Advanced care planning/counseling discussion Z71.89 ADVANCE CARE PLAN DISCUSSION 3. Hypertension, benign I10 COMPREHENSIVE METABOLIC PANEL 4. History of coronary artery stent placement Z95.5 5. Hypertrophic obstructive cardiomyopathy (HOCM) (HCC) I42.1 6. Pure hyperglyceridemia E78.1 COMPREHENSIVE METABOLIC PANEL LIPID PANEL BASIC 7. Screening for deficiency anemia Z13.0 COMPLETE BLOOD COUNT AND DIFFERENTIAL 8. Screening PSA (prostate specific antigen) Z12.5 PSA/PROSTATE SPECIFIC ANTIGEN SCREENING All open preventative health maintenance topics discussed with patient in detail. This includes risks and benefits regarding vaccines, cancer screening, healthy life style, and diet. Continue present medications. Check labs as above. Monitor blood pressure regularly. Exercise as tolerated. Maintain good diet. Follow-up in 6 months. Laci Eller MD documented in this encounterUniversity Hospitals [facility]06-19-2024 NoteHNO ID: [id number] Author: ARABELLA ARAUJO LPN Service: ? Author Type: LICENSED NURSE Type: Progress Notes Filed: 10/05/2023 15:12 Note Text: Patient in the office today for an annual Wellness exam. Health Maintenance Due: Hepatitis C Screening declined HIV Screening declined Shingrix Vaccine(1 of 2) declined Covid-19 Vaccine( - 2022- season) declined RSV Vaccine(1 - 1-dose 60+ series) declined No refills needed Arabella Araujo LPN October 05, 2023 2:26 PMK[facility]06-19-2024 NoteHNO ID: [id number] Author: LACI ELLER MD Service: ? Author Type: Physician Type: Progress Notes Filed: 10/12/2023 08:58 Note Text: Subjective Carlos Briones is a 58 year old male. Neyda presents today for his annual wellness visit. Additionally he follows up for multiple medical problems. See list. His chronic medical problems been stable. Blood pressure is under excellent control on his current regimen. He has no new complaints today. Review of Systems Constitutional: Negative. HENT: Negative. Eyes: Negative. Respiratory: Negative. Cardiovascular: Negative. Gastrointestinal: Negative. Endocrine: Negative. Genitourinary: Negative. Musculoskeletal: Negative. Skin: Negative. Allergic/Immunologic: Negative. Neurological: Negative. Hematological: Negative. Psychiatric/Behavioral: Negative. PAST SURGICAL HISTORY Procedure Laterality Date PAST SURGICAL HISTORY OF right shoulder repair PAST SURGICAL HISTORY OF left knee surgery PAST SURGICAL HISTORY OF 04/09/10 Left knee meniscus repair PAST SURGICAL HISTORY OF 05/28/10 Excision back AND chest skin cancer PAST SURGICAL HISTORY OF 2010 Excision lymph nodes left axilla VASECTOMY UNI/BI SPX W/POSTOP SEMEN EXAMS PAST MEDICAL HISTORY Diagnosis Date H/O Malignant melanoma 07/16/2011 History of coronary artery stent placement 06/20/2020 Hyperlipidemia 03/23/2021 Hypertension, benign 10/08/2016 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) 04/17/2006 Melanoma (HCC) Mitral valve disease 07/31/2010 Neoplasm of uncertain behavior of skin 11/17/2010 Other lymphedema 11/05/2011 Other primary cardiomyopathies HCM Palpitations 04/05/2022 Personal history of melanoma in-situ 04/03/2019 Pure hyperglyceridemia 10/08/2016 FAMILY HISTORY Problem Relation Age of Onset other (CAD s/p CABG, stents [Other]) Father age 65, .First [place] at age of 41 Coronary Artery Disease Paternal Grandfather Ischemic Heart Disease Paternal Uncle Cancer Mother at age 76 - mediastinal tumor Social History Tobacco Use Smoking status: Never Smokeless tobacco: Never Vaping Use Vaping Use: Never used Substance Use Topics Alcohol use: Yes Comment: occassionally Drug use: No ALLERGIES Allergen Reactions Ancef [Cefazolin] Rash, Itching MEDICATIONS: ELIQUIS 5 mg tab(s) Take 5 mg by mouth twice daily. atorvastatin (LIPITOR) 40 mg tablet Take 40 mg by mouth once daily. lisinopril (ZESTRIL, PRINIVIL) 5 mg tablet Take 5 mg by mouth once daily. metoprolol succinate ER (TOPROL XL) 100 mg Tb24 Take one tablet in the morning and one-half tablet in the evening daily. (Patient taking differently: Take 100 mg by mouth two times a day.) IBUPROFEN ORAL as necessary Allergies, past surgical history, family history and past medical history were reviewed per this encounter. Medications were reviewed and verified. Objective BP 132/82 (BP Site: Left Arm, BP Position: Sitting, BP Cuff Size: Regular Adult) Pulse 76 Temp 36.4 ?C (97.6 ?F) (Temporal) Resp 18 Ht 182.9 cm (6') Wt 111.6 kg (246 lb) SpO2 97% BMI 33.36 kg/m? Physical Exam Vitals reviewed. Constitutional: Appearance: Normal appearance. HENT: Head: Normocephalic and atraumatic. Nose: Nose normal. Eyes: Extraocular Movements: Extraocular movements intact. Pupils: Pupils are equal, round, and reactive to light. Cardiovascular: Rate and Rhythm: Normal rate and regular rhythm. Pulmonary: Effort: Pulmonary effort is normal. Breath sounds: Normal breath sounds. Abdominal: General: Bowel sounds are normal. Palpations: Abdomen is soft. Musculoskeletal: General: Normal range of motion. Cervical back: Normal range of motion and neck supple. Skin: General: Skin is warm and dry. Capillary Refill: Capillary refill takes less than 2 seconds. Neurological: General: No focal deficit present. Mental Status: He is alert and oriented to person, place, and time. Mental status is at baseline. Psychiatric: Mood and Affect: Mood normal. Behavior: Behavior normal. Assessment and Plan Encounter Diagnosis ICD-10-CM 1. Wellness examination Z00.00 2. Advanced care planning/counseling discussion Z71.89 ADVANCE CARE PLAN DISCUSSION 3. Hypertension, benign I10 COMPREHENSIVE METABOLIC PANEL 4. History of coronary artery stent placement Z95.5 5. Hypertrophic obstructive cardiomyopathy (HOCM) (HCC) I42.1 Stable. 6. Pure hyperglyceridemia E78.1 COMPREHENSIVE METABOLIC PANEL LIPID PANEL BASIC 7. Screening for deficiency anemia Z13.0 COMPLETE BLOOD COUNT AND DIFFERENTIAL 8. Screening PSA (prostate specific antigen) Z12.5 PSA/PROSTATE SPECIFIC ANTIGEN SCREENING All open preventative health maintenance topics discussed with patient in detail. This includes risks and benefits regarding vaccines, cancer screening, healthy life style, and diet. Continue present medications. Check labs as above. Monitor blood pressu (more content not included)...[facility]02-20-2024 NoteHNO ID: [id number] Author: ?, ?, ? Service: ? Author Type: ? Type: Progress Notes Filed: 06/07/2023 11:40 Note Text: [facility] YEARLY F/U IRB# [id number] [facility] Study PI: Dr Ingram Phone Call Follow-up 9 06/07/23 Patient called back. Did patient have a heart transplant? No NYHA Class:Class II: Slight limitation of physical activity; comfortable at rest; ordinary physical activity results in fatigue, dyspnea or anginal pain; symptomatic with moderate exertion Patient reports: Hospitalization for heart failure: No New onset of Atrial Fibrillation: No Sudden Cardiac : No Non-fatal Stroke: No Implantable ICD: No (shocks and/or ER visit or cardiology fu) Septal Myectomy : No Alcohol Septal Ablation : No Mitral Valve Replacement: No Mitral Valve Repair: No Pacemaker placement: No LVAD placement: No Any other Cardiac Surgery: No Echocardiogram: Yes Cardiac MRI: No Symptoms of: String of palpitations? Yes, not new/worsening/requiring additional treatment Near Syncope? No Syncope? No COVID-19 Exposure; Diagnosed with COVID-19? No Confirmed by testing? NA-Not diagnosed with COVID COVID Associated symptoms? Breathlessness: NA-Not diagnosed with COVID Palpitations: NA-Not diagnosed with COVID Syncope: NA-Not diagnosed with COVID Memory Loss: NA-Not diagnosed with COVID Fatigue: NA-Not diagnosed with COVID Loss of sense of taste: NA-Not diagnosed with COVID Loss of sense of smell: NA-Not diagnosed with COVID Headache: NA-Not diagnosed with COVID Admitted to a hospital? NA-Not diagnosed with COVID Require oxygen? NA-Not diagnosed with COVID Require mecahnical ventillation? NA-Not diagnosed with COVID Experience any heart related complications? NA-Not diagnosed with COVID Symptoms have returned to baseline? NA-Not diagnosed with COVID Will request outside records as needed. Meds reviewed:and updated. Rn Clinician: Romain Burnette Pager #: [phone] [facility]02-[facility]-2024 NoteHNO ID: [id number] Author: ?, ?, ? Service: ? Author Type: ? Type: Progress Notes Filed: 06/06/2023 14:39 Note Text: [facility] F[facility]U [id number] PI: Dr Ingram Phone Call Follow-up 9 Called patient: left a voicemail with callback request and contact information. Rn Clinician: Romain Oneill Coord Pager #: [phone] [facility]02-19-2024 History of Present illness Narrative* Romain Steinberg - 06/06/2023 2:38 PM EST [facility] YEARLY F[facility]U IRB[facility] [id number] PI: Dr Ingram Phone Call Follow-up 9 Called patient: left a voicemail with callback request and contact information. Rn Clinician: Romain Oneill Coord Pager #: [phone] documented in this encounterUniversity [facility]als [facility]12-18-2023 NoteHNO ID: [id number] Author: Laci Eller MD Service: ? Author Type: Physician Type: Progress Notes Filed: 04/04/2023 11:02 AM Note Text: This note was created using Cogni[employer]. Subjective Carlos Briones is a 58 year old male. He presents today for follow-up for multiple medical problems. See list. His chronic medical problems are stable and well-controlled. His blood pressure is excellent today. He has no new complaints today. He is doing well. Review of Systems Constitutional: Negative. HENT: Negative. Eyes: Negative. Respiratory: Negative. Cardiovascular: Negative. Gastrointestinal: Negative. Endocrine: Negative. Genitourinary: Negative. Musculoskeletal: Negative. Skin: Negative. Allergic/Immunologic: Negative. Neurological: Negative. Hematological: Negative. Psychiatric/Behavioral: Negative. Objective BP 112/76 (BP Site: Left Arm, BP Position: Sitting, BP Cuff Size: Regular Adult) Pulse 62 Temp 36.4 ?C (97.6 ?F) (Temporal) Resp 18 Ht 182.9 cm (6') Wt 112.1 kg (247 lb 3.2 oz) SpO2 97% BMI 33.53 kg/m? Physical Exam Vitals reviewed. Constitutional: Appearance: Normal appearance. HENT: Head: Normocephalic and atraumatic. Nose: Nose normal. Eyes: Extraocular Movements: Extraocular movements intact. Pupils: Pupils are equal, round, and reactive to light. Cardiovascular: Rate and Rhythm: Normal rate and regular rhythm. Pulmonary: Effort: Pulmonary effort is normal. Breath sounds: Normal breath sounds. Abdominal: General: Bowel sounds are normal. Palpations: Abdomen is soft. Musculoskeletal: General: Normal range of motion. Cervical back: Normal range of motion and neck supple. Skin: General: Skin is warm and dry. Capillary Refill: Capillary refill takes less than 2 seconds. Neurological: General: No focal deficit present. Mental Status: He is alert and oriented to person, place, and time. Mental status is at baseline. Psychiatric: Mood and Affect: Mood normal. Behavior: Behavior normal. Assessment and Plan Encounter Diagnosis ICD-10-CM 1. Hypertension, essential I10 COMP METABOLIC PANEL 2. Pure hypercholesterolemia E78.00 COMP METABOLIC PANEL LIPID PANEL BASIC 3. History of coronary artery stent placement Z95.5 4. Hypertrophic obstructive cardiomyopathy (HOCM) ([facility]) I42.1 5. Obstructive sleep apnea syndrome G47.33 Continue present medications. Check labs as above. Follow-up in 6 months for wellness exam. Laci Eller [facility]12-18-2023 NoteHNO ID: [id number] Author: Arabella Araujo LPN Service: ? Author Type: LICENSED NURSE Type: Progress Notes Filed: 04/04/2023 11:02 AM Note Text: Patient is in office today for 6 month exam. Patient has no current complaints or concerns. Patient would like to have Flu Vaccine and Shingles vaccines if able. No refills needed Arabella Araujo LPN April 04, 2023 9:30 [facility]06-21-2023 History of Present illness Narrative* Laci Eller MD - 10/06/2022 4:39 PM EDT This note was created using Softfrontriter. Subjective Carlos Briones is a 57 year old male. Patient presents today for his annual wellness exam. Review of Systems Constitutional: Negative. HENT: Negative. Eyes: Negative. Respiratory: Negative. Cardiovascular: Negative. Gastrointestinal: Negative. Endocrine: Negative. Genitourinary: Negative. Musculoskeletal: Negative. Skin: Negative. Allergic/Immunologic: Negative. Neurological: Negative. Hematological: Negative. Psychiatric/Behavioral: Negative. Objective BP 114/76 (BP Site: Right Arm, BP Position: Sitting) Pulse 64 Temp 36.3 C (97.3 F) (Temporal) Resp 14 Ht 182.9 cm (6') Wt 109.9 kg (242 lb 3.2 oz) SpO2 95% BMI 32.85 kg/m Physical Exam Vitals reviewed. Constitutional: Appearance: Normal appearance. HENT: Head: Normocephalic and atraumatic. Nose: Nose normal. Eyes: Extraocular Movements: Extraocular movements intact. Pupils: Pupils are equal, round, and reactive to light. Cardiovascular: Rate and Rhythm: Normal rate and regular rhythm. Pulmonary: Effort: Pulmonary effort is normal. Breath sounds: Normal breath sounds. Abdominal: General: Bowel sounds are normal. Palpations: Abdomen is soft. Musculoskeletal: General: Normal range of motion. Cervical back: Normal range of motion and neck supple. Skin: General: Skin is warm and dry. Capillary Refill: Capillary refill takes less than 2 seconds. Neurological: General: No focal deficit present. Mental Status: He is alert and oriented to person, place, and time. Mental status is at baseline. Psychiatric: Mood and Affect: Mood normal. Behavior: Behavior normal. Assessment and Plan Encounter Diagnosis ICD-10-CM 1. Wellness examination Z00.00 2. Pure hypercholesterolemia E78.00 COMP METABOLIC PANEL LIPID PANEL BASIC 3. Hypertension, essential I10 COMP METABOLIC PANEL 4. Screening PSA (prostate specific antigen) Z12.5 PSA/PROSTSPECAG SCRN 5. Screening for deficiency anemia Z13.0 CBC + DIFF 6. Screening for colon cancer Z12.11 COLOGUARD Laci Eller MD * Deepika Hickman, CARMEN - 10/06/2022 2:50 PM EDT Patient in office today for an annual wellness exam. Health Maintenance Due: HEPATITIS C SCREENING---declined HIV SCREENING---declined BP CONTROLLED (<130/80) SHINGRIX VACCINE(1 of 2)---he wants to discuss this with Dr Rafita GILL-19 VACCINE(4 - Booster for Pfizer series)---he has had a total of 3 shots and he does not want anymore DEPRESSION ASSESSMENT---done today and is negative Deepika Hickman LPN October 06, 2022 3:14 PM documented in this encounterUniversity Hospitals [facility]03-29-2023 NoteHNO ID: [id number] Author: Romain Burnette Service: ? Author Type: ? Type: Progress Notes Filed: 07/14/2022 8:42 AM Note Text: [facility] YEARLY F/U IRB# [id number] [facility] Study PI: Dr Ingram Phone Call Follow-up 8 Did patient have a heart transplant? No NYHA Class:Class II: Slight limitation of physical activity; comfortable at rest; ordinary physical activity results in fatigue, dyspnea or anginal pain; symptomatic with moderate exertion Patient reports: Hospitalization for heart failure: No New onset of Atrial Fibrillation: No Sudden Cardiac : No Non-fatal Stroke: No Implantable ICD: No (shocks and/or ER visit or cardiology fu) Septal Myectomy : No Alcohol Septal Ablation : No Mitral Valve Replacement: No Mitral Valve Repair: No Pacemaker placement: No LVAD placement: No Any other Cardiac Surgery: No Echocardiogram: Yes Cardiac MRI: No Symptoms of: String of palpitations? No Near Syncope? No Syncope? No COVID-19 Exposure; Diagnosed with COVID-19? No Confirmed by testing? NA-Not diagnosed with COVID COVID Associated symptoms? Breathlessness: NA-Not diagnosed with COVID Palpitations: NA-Not diagnosed with COVID Syncope: NA-Not diagnosed with COVID Memory Loss: NA-Not diagnosed with COVID Fatigue: NA-Not diagnosed with COVID Loss of sense of taste: NA-Not diagnosed with COVID Loss of sense of smell: NA-Not diagnosed with COVID Headache: NA-Not diagnosed with COVID Admitted to a hospital? NA-Not diagnosed with COVID Require oxygen? NA-Not diagnosed with COVID Require mecahnical ventillation? NA-Not diagnosed with COVID Experience any heart related complications? NA-Not diagnosed with COVID Symptoms have returned to baseline? NA-Not diagnosed with COVID Will request outside records as needed. Meds reviewed:and updated. Rn Clinician: Romain Oneill Coord Pager #: [phone] Clinic [facility]inte [facility]03-15-2023 NoteHNO ID: [id number] Author: Romain Burnette Service: ? Author Type: ? Type: Progress Notes Filed: 06/30/2022 2:09 PM Note Text: [id number] Study PI: Dr Elliott Martino Phone Call Follow-up 8 Attempt #2 Left a VM with callback request and contact information. Rn Clinician: Romain Oneill Coord Pager #: [phone] Clinic [facility]inte [facility]03-01-2023 NoteHNO ID: [id number] Author: Romainchepe Burnette Service: ? Author Type: ? Type: Progress Notes Filed: 06/16/2022 3:47 PM Note Text: [id number] [facility] Study PI: Dr Ingram Phone Call Follow-up 8 Left a VM with callback request and contact information. Rn Clinician: Romain Oneill Coord Pager #: [phone] Clinic [facility]03-01-2023 History of Present illness Narrative* Romain Burnette - 06/16/2022 3:[address] [facility] [id number] [facility] Study PI: Dr Ingram Phone Call Follow-up 8 Left a VM with callback request and contact information. Rn Clinician: Romain Oneill Coord Pager #: [phone] documented in this encounterUniversity Hospitals Beachwood [facility]12-19-2022 History of Present illness Narrative* Laci Eller MD - 04/05/2022 3:19 PM EST This note was created using Softfrontriter. Subjective Carlos Briones is a 57 year old male. Patient presents today for follow-up for multiple medicalproblems. See list. His chronic medical problems are stable. He has no new complaints today. His blood pressure is under good control. He denies any symptoms of his hypertrophic cardiomyopathy. He continues to take metoprolol as directed. Review of Systems Constitutional: Negative. HENT: Negative. Eyes: Negative. Respiratory: Negative. Cardiovascular: Negative. Gastrointestinal: Negative. Endocrine: Negative. Genitourinary: Negative. Musculoskeletal: Negative. Skin: Negative. Allergic/Immunologic: Negative. Neurological: Negative. Hematological: Negative. Psychiatric/Behavioral: Negative. Objective BP 140/76 (BP Site: Right Arm, BP Position: Sitting, BP Cuff Size: Large Adult) Pulse 70 Temp 36.4 C (97.5 F) (Temporal) Resp 17 Ht 182.9 cm (6') Wt 110.8 kg (244 lb 6 oz) SpO2 98% BMI 33.14 kg/m Physical Exam Vitals reviewed. Constitutional: Appearance: Normal appearance. HENT: Head: Normocephalic and atraumatic. Nose: Nose normal. Eyes: Extraocular Movements: Extraocular movements intact. Pupils: Pupils are equal, round, and reactive to light. Cardiovascular: Rate and Rhythm: Normal rate and regular rhythm. Pulmonary: Effort: Pulmonary effort is normal. Breath sounds: Normal breath sounds. Abdominal: General: Bowel sounds are normal. Palpations: Abdomen is soft. Musculoskeletal: General: Normal range of motion. Cervical back: Normal range of motion and neck supple. Skin: General: Skin is warm and dry. Capillary Refill: Capillary refill takes less than 2 seconds. Neurological: General: No focal deficit present. Mental Status: He is alert and oriented to person, place, and time. Mental status is at baseline. Psychiatric: Mood and Affect: Mood normal. Behavior: Behavior normal. Assessment and Plan Carlos was seen today for 6 month follow up. Diagnoses and all orders for this visit: Encounter for immunization - INFLUENZA VACCINE QUADRIVALENT 6 MO - 64 YRS IM Mixed hyperlipidemia - LIPID PANEL BASIC; Future - COMP METABOLIC PANEL; Future Hypertension, benign - COMP METABOLIC PANEL; Future Obstructive sleep apnea syndrome Hypertrophic obstructive cardiomyopathy (HOCM) (FORMER[facility]) * Racheal Mazariegos LPN - 04/05/2022 2:39 PM EST Patient here today for a 6 month office visit. Patient denies any issues or concerns today. Racheal Mazariegos LPN April 05, 2022 2:39 PM documented in this encounterCleveland [id number] History of Past illness Narrative* Problem Noted Date Diagnosed Date Resolved Date Hypertension 04/05/2022 04/04/2023 documented as of this encounter (statuses as of 05/27/2023) [facility]12-19-[facility]22 History of Past illness Narrative* Problem Noted Date Diagnosed Date Resolved Date Hypertension 04/05/2022 04/04/2023 documented as of this encounter (statuses as of 06/06/2023) [facility]01-21-2022 NotePre-procedure Verification and Time Out: Pre-Procedure Verification and Time Out: Procedure Locationprocedure area HUDDLE - Pre-procedure Verificationcompleted TIME OUT - Final Verificationcompleted immediately prior to procedure start DEBRIEFcompleted General Information: Anesthesia Critical Care: Non-Anesthesia Date/Time of Procedure: 08-May-2021 17:30 Post-Procedure Diagnosis: Symptomatic paroxymal AF Procedure Name: AF RF ablation Findings: grossly normal anatomy Procedure performed by: Dr. Beck Histology Tech(s): Hugo Alvarado Estimated Blood Loss (mL): 20 Specimen: no Indication(s): Symptomatic paroxymal AF Informed Consent: written consent obtained Procedure Details: Procedure Details: The indications, risks, benefits, alternatives, and details of the procedure were explained to the patient who expressed understanding of the risks including but are not limited to: pain, bleeding, and infection for which the risk is less than 1%. More serious risks, including cardiac perforation and tamponade, vascular trauma, pulmonary vein stenosis, atrio-esophageal fistula, diaphragmatic paralysis, life-threatening arrhythmia, need for permanent pacemaker, stroke, heart attack, and/or , for which the overall risk ranges 0.1-1%. After all questions were answered, the patient provided informed and written consent. Access was obtained in the right femoral vein using the modified Seldinger technique with the aid of ultrasound. Three sheaths (8Fr, 8.5Fr, 8.5Fr) were placed in the right femoral vein. Intracardiac echo was used to evaluate for baseline effusion. A Langston CS catheter was placed in the CS. The proximal sheath was then exchanged for a long Daingerfield sheath over a wire. Transseptal catheterization was performed under fluoroscopic and intracardiac echocardiographic guidance. A left atrial voltage map was constructed using Carto3 and a PentaRay mapping catheter which showed no significant areas of low voltage (scar). PV potentials were present at the antrum of all four PVs. A Biosense Langston SmartTouch SF catheter was used for ablation. Isolation of all 4 PVs was achieved with bilateral RF wide-area circumferential ablation (WACA) lesions and carinal lines. Mapping was repeated with the PentaRay catheter after ablation showing isolation of all 4 pulmonary veins. Then we tried to induce with burst pacing from CS catheter, we were able to induce atrial arrhythmia with frequent change in CL and activation sequence, we tried to map with Penatray and ablation but were unable due to frequent change of CL and activation sequence, however every time we go to an area by the septum close to the mitral annulus with terminated the tachycardia and was very fractionated, we homogenized that area with multiple lesions, then we tried to induce again but we were unable for multiple times. at the end we tried and this time we induced AF. Then we cardioverted the patient with a single 200 Joules shock back to sinus rhythm. The long sheath was exchanged for a short 8.5Fr sheath over a wire. All sheaths were removed and hemostasis was achieved using Vascade and manual pressure. Throughout the procedure, the heparin infusion rate was adjusted to maintain an ACT between 350-400 sec throughout the procedure. Successful ablation for atrial fibrillation and homogeneization of scar area in the spetal area. The patient tolerated the procedure well with no immediate complications. At the end of the case, just before the patient was transferred to floor. The device was reprogramed to original settings. Plan: 1. Transfer to telemetry for overnight observation 2. Bedrest for 2 hours then ambulate as tolerated 3. Cont current home meds as prescribed 4. Pantoprazole for 4 weeks. 5. Resume Eliquis tonight 6. Discharge home tomorrow Tolerance: good Complications: None Attestation: Note Completion: I am a:Resident/Fellow Attending AttestationI was present for the entire procedure Electronic Signatures: Fran Beck) (Signed 11-May-2021 08:18) Authored: Note Completion Co-Signer: Pre-procedure Verification and Time Out, General Information, Procedure Details, Note Completion Hugo Ulloa (Fellow)) (Signed 08-May-2021 18:18) Authored: Pre-procedure Verification and Time Out, General Information, Procedure Details, Note Completion Last Updated: 11-May-2021 08:18 by Fran Beck)[facility] 05-08-2021 NoteHistory of Present Illness: History Present Illness: Reason for surgery: Symptomatic paroxysmal AF HPI: The patient 56 years old male with hx of HOCM s/p ICD for primary prevention, HTN, DLL, CAD s/p LIONEL to RCA in 06/2020 and symptomatic paroxysmal AF is here for an elective AF RFA. The patient has been taking his Eliquis w/o any issues. He reports that his symptoms are SOB, Palpitations and low energy and unable to sleep or rest. He denies any hx of stroke. The indications, risks, benefits, alternatives, and details of the procedure were explained to the patient who expressed understanding of the risks including but are not limited to: pain, bleeding, and infection for which the risk is less than 1%. More serious risks, including cardiac perforation and tamponade, vascular trauma, pulmonary vein stenosis, atrio-esophageal fistula, diaphragmatic paralysis, life-threatening arrhythmia, need for permanent pacemaker, stroke, heart attack, and/or , for which the overall risk ranges 0.1-1%. After all questions were answered, the patient provided informed and written consent. Home Medication Review: Home Medications Reviewed: yes Impression/Procedure: Impression and Planned Procedure: symptomatic atrial fibrillation will proceed with RFA using CARTO system under general anesthesia ERAS (Enhanced Recovery After Surgery): ERAS Patient: no Review of Systems: Review of Systems: All Other Systems: All other systems reviewed and are negative Physical Exam by System: Constitutional: Well developed, awake/alert/oriented x3, no distress, alert and cooperative Respiratory/Thorax: Patent airways, CTAB, normal breath sounds with good chest expansion, thorax symmetric Cardiovascular: Regular, rate and rhythm, no murmurs, 2+ equal pulses of the extremities, normal S 1and S 2 Extremities: normal extremities, no cyanosis edema, contusions or wounds, no clubbing Neurological: alert and oriented x3 Psychological: Appropriate mood and behavior Skin: Warm and dry, no lesions, no rashes Airway/Sedation Assessment: Assmentment by AnesthesiaSee anesthesia airway/sedation assessment. Consent: COVID-19 Consent: COVID-19 Risk ConsentSurgeon has reviewed rey risks related to the risk of lexi COVID-19 and if they contract COVID-19 what the risks are. Attestation: Note Completion: I am a: Resident/Fellow Attending AttestationI saw and evaluated the patient. I personally obtained the rey and critical portions of the history and physical exam or was physically present for rey and critical portions performed by the resident/fellow. I reviewed the resident/fellows documentation and discussed the patient with the resident/fellow. I agree with the resident/fellows medical decision making as documented in the note. I personally evaluated the patient [id number] Electronic Signatures: Fran Beck) (Signed 11-May-2021 08:16) Authored: Note Completion Co-Signer: History of Present Illness, Home Medication Review, Impression/Procedure, ERAS, Review of Systems, Physical Exam, Consent, Note Completion Hugo Ulloa (Fellow)) (Signed 08-May-2021 12:31) Authored: History of Present Illness, Home Medication Review, Impression/Procedure, ERAS, Review of Systems, Physical Exam, Consent, Note Completion Last Updated: 11-May-2021 08:16 by Fran Beck)[facility] 05-08-2021 Evaluation note* Diagnosis Onset Date Resolution Status History of radiofrequency ab lation procedure for cardiac arrhythmia May 08, 2021 acute Paroxysmal atrial fibrillation acute History of implantable cardi ac defibrillator (ICD) July 24, 2014 chronic Hypertrophic cardiomyopathy chronic History of radiofrequency ab lation procedure for cardiac arrhythmia May 08, 2021 acute Paroxysmal atrial fibrillation acute Atherosclerotic heart diseas e of [place] coronary artery without angina pectoris chronic History of implantable cardi ac defibrillator (ICD) July 24, 2014 chronic Hyperlipidemia chronic Hypertrophic cardiomyopathy chronic History of radiofrequency ab lation procedure for cardiac arrhythmia May 08, 2021 acute Paroxysmal atrial fibrillation acute History of implantable cardi ac defibrillator (ICD) July 24, 2014 chronic Hypertrophic cardiomyopathy chronic Non-sustained ventricular tachycardia resolved History of radiofrequency ab lation procedure for cardiac arrhythmia May 08, 2021 acute JANNETH (obstructive sleep apnea) acute Paroxysmal atrial fibrillation acute Atherosclerotic heart diseas e of [place] coronary artery without angina pectoris chronic History of implantable cardi ac defibrillator (ICD) July 24, 2014 chronic Hyperlipidemia chronic Hypertrophic cardiomyopathy [facility] Work Phone: 1(208) 947-825801-21-2022 Evaluation note* Diagnosis Onset Date Resolution Status History of radiofrequency ab lation procedure for cardiac arrhythmia May 08, 2021 acute Paroxysmal atrial fibrillation acute History of implantable cardi ac defibrillator (ICD) July 24, 2014 chronic Hypertrophic cardiomyopathy chronic Non-sustained ventricular tachycardia resolved History of radiofrequency ab lation procedure for cardiac arrhythmia May 08, 2021 acute JANNETH (obstructive sleep apnea) acute Paroxysmal atrial fibrillation acute Atherosclerotic heart diseas e of [place] coronary artery without angina pectoris chronic History of implantable cardi ac defibrillator (ICD) July 24, 2014 chronic Hyperlipidemia chronic Hypertrophic cardiomyopathy [facility] Work Phone: 1(774) 816-536001-21-2022 Evaluation note* Diagnosis Onset Date Resolution Status Obesity acute JANNETH (obstructive sleep apnea) acute History of radiofrequency ab lation procedure for cardiac arrhythmia May 08, 2021 acute Paroxysmal atrial fibrillation acute History of implantable cardi ac defibrillator (ICD) July 24, 2014 chronic Hypertrophic cardiomyopathy chronic History of radiofrequency ab lation procedure for cardiac arrhythmia May 08, 2021 acute JANNETH (obstructive sleep apnea) acute Paroxysmal atrial fibrillation acute Atherosclerotic heart diseas e of [place] coronary artery without angina pectoris chronic History of implantable cardi ac defibrillator (ICD) July 24, 2014 chronic Hyperlipidemia chronic Hypertrophic cardiomyopathy [facility] Work Phone: 1(312) 632-417501-21-2022 Evaluation note* Diagnosis Onset Date Resolution Status History of radiofrequency ab lation procedure for cardiac arrhythmia May 08, 2021 acute History of implantable cardi ac defibrillator (ICD) July 24, 2014 chronic Hypertrophic cardiomyopathy chronic Non-sustained ventricular tachycardia chronic History of radiofrequency ab lation procedure for cardiac arrhythmia May 08, 2021 acute JANNETH (obstructive sleep apnea) acute Paroxysmal atrial fibrillation acute Atherosclerotic heart diseas e of [place] coronary artery without angina pectoris chronic History of implantable cardi ac defibrillator (ICD) July 24, 2014 chronic Hyperlipidemia chronic Hypertrophic cardiomyopathy [facility] Work Phone: [phone]) 927-245401-21-2022 Evaluation note* Diagnosis Onset Date Resolution Status Admit Date History of radiofrequency ablation procedure for cardiac arrhythmia May 08, 2021 acute November 05, 2024 3:02pm Paroxysmal atrial fibrillation acute November 05, 2024 3:02pm History of implantable cardiac defibrillator (ICD) July 24, 2014 chronic November 05, 2024 3:02pm Hypertrophic cardiomyopathy chronic November 05, 2024 3:02pm Acute sinusitis acute November 2:00pm [facility] Work Phone: [phone]) 802-130012-23-2021 History of Present illness Narrative* OUTPATIENT CONSULTATION: Cardiac Electrophysiology * DOS: 04/09/21 * REASON: AF * I had a pleasure seeing Carlos Briones. He is a 56 year old male with: * 1. HTN * 2. Palpitations * 3. Hypertrophic Cardiomyopathy - Diagnosed 16 years ago. MRI in April of 2014 showed EF of 80% basal , inferoseptal and apical thickening. Highest thickness 2 cm. s/p ICD in 2014 for primary prevention (strong family history of sudden cardiac ). ECHO 01/2021 EF of 75%. No gradient is reported. * 4. CAD - s/p PCI mid LCx (JUN 2020) on Brillinta. Catheterization was done as part of the work up for atrial fibrillation * 5. Tachyarrhythmia / AF - started having the AF 1 and a half years ago. He has it very frequently now. Documented with ECG ([place] and [place] a rhythm strip from them). Episodes last from 2-3 hours to 10-13 hours. He is highy symptomatic. Already on a maximal dose of Metoprolol. * Underwent PVI on 05/08/21 by Kiran without complications * TODAY * Routine 3mo s/p AF ablation office visit. He is feeling overall well. Denies any recurrence of his AF symptoms. He states his recent device check did not show any arrhythmia. He denies cp, sob, palpitations, LH/dizziness, orthopnea, edema, fever/chills, bleeding. He is trying to do more walking/swimming for exercise. He admits to some snoring and his saying he does breath funny while sleeping, never been tested for sleep apnea. * ECG 08/06/21 SB 54 bpm, iRBBB QRS 112ms, tw abn [facility] Work Phone: [phone]) 407-188612-23-2021 History of Present illness Narrative* OUTPATIENT CONSULTATION: Cardiac Electrophysiology * DOS: 04/09/21 * REASON: AF * I had a pleasure seeing Carlos Briones. He is a 56 year old male with: * 1. HTN * 2. Palpitations * 3. Hypertrophic Cardiomyopathy - Diagnosed 16 years ago. MRI in April of 2014 showed EF of 80% basal , inferoseptal and apical thickening. Highest thickness 2 cm. s/p ICD in 2015 for primary prevention (strong family history of sudden cardiac ). ECHO 01/2021 EF of 75%. No gradient is reported. * 4. CAD - s/p PCI mid LCx (JUN 2020) on Brillinta. Catheterization was done as part of the work up for atrial fibrillation * 5. Tachyarrhythmia / AF - started having the AF 1 and a half years ago. He has it very frequently now. Documented with ECG (he [place] close to the [place] and has obtained a rhythm strip from them). Episodes last from 2-3 hours to 10-13 hours. He is highy symptomatic. Already on a maximal dose of Metoprolol. * Underwent PVI on 05/08/21 by Kiran without complications * TODAY * Routine 3mo s/p AF ablation office visit. He is feeling overall well. Denies any recurrence of his AF symptoms. He states his recent device check did not show any arrhythmia. He denies cp, sob, palpitations, LH/dizziness, orthopnea, edema, fever/chills, bleeding. He is trying to do more walking/swimming for exercise. He admits to some snoring and his saying he does breath funny while sleeping, never been tested for sleep apnea. * ECG 08/06/21 SB 54 bpm, iRBBB QRS 112ms, tw abn [id number] Work Phone: Evaluation note* Diagnosis Onset Date Resolution Status Obesity acute JANNETH (obstructive sleep apnea) [facility] Work Phone: Evaluation note* Diagnosis Encounter for immunization- Primary Need for other specified prophylactic vaccination against single bacterial disease Mixed hyperlipidemia Hypertension, benign Essential hypertension, benign Obstructive sleep apnea syndrome Obstructive sleep apnea (adult) (pediatric) Hypertrophic obstructive cardiomyopathy (HOCM) (HCC) Hypertrophic obstructive cardiomyopathy [facility] Diagnosis IRB #[id number] HCMR Novel Predictors Registry- Primary [facility]* Diagnosis Wellness examination- Primary Pure hypercholesterolemia Hypertension, essential Unspecified essential hypertension Screening PSA (prostate specific antigen) Special screening for malignant neoplasm of prostate Screening for deficiency anemia Screening for other and unspecified deficiency anemia Screening for colon cancer Special screening for malignant neoplasms, colon documented in this encounter [facility] note* Diagnosis IRB #[id number] HCMR Novel Predictors Registry- Primary documented in this encounter [facility] note* Diagnosis Wellness examination- Primary Advanced care planning/counseling discussion Other specified counseling Hypertension, benign Essential hypertension, benign History of coronary artery stent placement Postsurgical percutaneous transluminal coronary angioplasty status Hypertrophic obstructive cardiomyopathy (HOCM) (HCC) Hypertrophic obstructive cardiomyopathy Pure hyperglyceridemia Screening for deficiency anemia Screening for other and unspecified deficiency anemia Screening PSA (prostate specific antigen) Special screening for malignant neoplasm of prostate documented in this encounter [facility] note* Diagnosis Class 1 obesity due to excess calories with serious comorbidity and body mass index (BMI) of 33.0 to 33.9 in adult- Primary Coronary artery disease involving [place] coronary artery of [place] heart without angina pectoris History of coronary artery stent placement Postsurgical percutaneous transluminal coronary angioplasty status Hypertrophic obstructive cardiomyopathy (HOCM) (HCC) Hypertrophic obstructive cardiomyopathy Hypertension, benign Essential hypertension, benign documented in this encounter [facility] note* Diagnosis Class 1 obesity due to excess calories with serious comorbidity and body mass index (BMI) of 32.0 to 32.9 in adult- Primary documented in this encounter [facility] for referral (narrative)No reason for referral information [facility] Work Phone: Summary Purpose Family History No Family History Records FoundUnknown Family Member Name Dates Details Family history of cardiac di sorder: Father(V17.49, Z82.49) Status:Active Family history of coronary a rtery disease: Father, Paternal Grandfather(V17.3, Z82.49) Status:Active Family history of sudden car diac (SCD): Father, Paternal Grandfather(V17.41, Z82.41) Comments:Father 65 y/o 1st M I early 40's Uncle 41 y/oGrandfather 82 y/o; Status:Active Unknown Family Member Name Dates Details Family history of cardiac di sorder: Father(V17.49, Z82.49) Status:Active Family history of coronary a rtery disease: Father, Paternal Grandfather(V17.3, Z82.49) Status:Active Family history of sudden car diac (SCD): Father, Paternal Grandfather(V17.41, Z82.41) Comments:Father 65 y/o 1st M I early 40's Uncle 41 y/oGrandfather 82 y/o; Status:Active Relationship Condition Age at Onset Recorded Date/T toan father Coronary artery disease Unknown History of coronary artery bypass surgery Unknown Myocardial infarction 41 uncle Coronary artery disease Unknown Myocardial infarction 40 Advance Directives No Advanced Directives Records Found Advance Directive Response Recorded Date/ Time Advance Directives No June 20 8:09am Living Will No June 20, 2020 8:09am Power of Language Asst No June 20 8:09am Advance Directive Response Recorded Date/ Time Advance Directives No June 20 7:09am Living Will No June 20, 2020 7:09am Power of Language Asst No June 20 7:09am Advance Directive Response Recorded Date/ Time Living Will No May 05 9:06am Do you have a Healthcare Power of Language Asst? No May 05, 2023 9:06am Advance Directives No May 05, 2023 9:06am Advance Directive Response Recorded Date/ Time Advance Directives No May 05, 2023 9:06am Chief Complaint CARLOS BRIONES is being seen for a 3 month follow-up of atrial fibrillation and s/p PVI on 05/08/21 by Kiran.CARLOS BRIONES is being seen for a 3 month follow-up of atrial fibrillation and s/p PVI on 05/08/21 by Kiran. Chief Complaint and Reason for Visit Chief Complaint TAYLOR @ 2/1 M [facility] ABLATION 3 MO F/U / TAYLOR 3:00 JANNETH; 09/24 LM Reason for Visit History of radiofreq uency ablation procedure for cardiac arrhythmia Paroxysmal atrial fibrillation History of implantable cardiac defibrillator (ICD) Hypertrophic cardiomyopathy History of radiofrequency ablation procedure for cardiac arrhythmia Paroxysmal atrial fibrillation Atherosclerotic heart disease of [place] coronary artery without angina pectoris History of implantable cardiac defibrillator (ICD) Hyperlipidemia Hypertrophic cardiomyopathy History of radiofrequency ablation procedure for cardiac arrhythmia Paroxysmal atrial fibrillation History of implantable cardiac defibrillator (ICD) Hypertrophic cardiomyopathy Non-sustained ventricular tachycardia History of radiofrequency ablation procedure for cardiac arrhythmia JANNETH (obstructive sleep apnea) Paroxysmal atrial fibrillation Atherosclerotic heart disease of [place] coronary artery without angina pectoris History of implantable cardiac defibrillator (ICD) Hyperlipidemia Hypertrophic cardiomyopathy Chief Complaint 3 MO F/U / TAYLOR 3:00 JANNETH; 6/9 LM Reason for Visit History of radiofreq uency ablation procedure for cardiac arrhythmia Paroxysmal atrial fibrillation History of implantable cardiac defibrillator (ICD) Hypertrophic cardiomyopathy Non-sustained ventricular tachycardia History of radiofrequency ablation procedure for cardiac arrhythmia JANNETH (obstructive sleep apnea) Paroxysmal atrial fibrillation Atherosclerotic heart disease of [place] coronary artery without angina pectoris History of implantable cardiac defibrillator (ICD) Hyperlipidemia Hypertrophic cardiomyopathy Chief Complaint JANNETH; 6/9 LM Sleep problems 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; 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* Reason for Visit Obesity JANNETH (obstructive sleep apnea) Chief Complaint 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; 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* 3 M FU JANNETH Reason for Visit Obesity JANNETH (obstructive sleep apnea) Chief Complaint 3 M FU JANNETH 6 MO F/U / TAYLOR 2:00 HYPERTROPHIC CARDIOMYOPATHY Reason for Visit Obesity JANNETH (obstructive sleep apnea) History of radiofrequency ablation procedure for cardiac arrhythmia Paroxysmal atrial fibrillation History of implantable cardiac defibrillator (ICD) Hypertrophic cardiomyopathy History of radiofrequency ablation procedure for cardiac arrhythmia JANNETH (obstructive sleep apnea) Paroxysmal atrial fibrillation Atherosclerotic heart disease of [place] coronary artery without angina pectoris History of implantable cardiac defibrillator (ICD) Hyperlipidemia Hypertrophic cardiomyopathy Chief Complaint 6 m fu/ 2pm w MMM 6 m fu/ 1:30 w TAYLOR HEART FAILURE Reason for Visit History of radiofreq uency ablation procedure for cardiac arrhythmia History of implantable cardiac defibrillator (ICD) Hypertrophic cardiomyopathy Non-sustained ventricular tachycardia History of radiofrequency ablation procedure for cardiac arrhythmia JANNETH (obstructive sleep apnea) Paroxysmal atrial fibrillation Atherosclerotic heart disease of [place] coronary artery without angina pectoris History of implantable cardiac defibrillator (ICD) Hyperlipidemia Hypertrophic cardiomyopathy Chief Complaint Admit Date 1 Y FU July 19, 2024 7:44 am 6 M FU/SR @ 8:30 August 02, 2024 8:1 3am Pacer Check Remote August 02, 2024 9:0 0am Thinks he received shock November 05, 2024 3:02pm Reason for Visit Admit Date Obesity July 19, 2024 7:44 am JANNETH (obstructive sleep apnea) July 19, 2024 7:44am Paroxysmal atrial fibrillation July 8:13am History of implantable cardiac defibrill ator (ICD) August 02, 2024 8:13am Hypertrophic cardiomyopathy August 02, 2024 8:13am Non-sustained ventricular tachycardia Ap 2024 8:13am History of radiofrequency ab lation procedure for cardiac arrhythmia August 02, 2024 8:13am Atherosclerotic heart diseas e of [place] coronary artery without angina pectoris August 02, 2024 8:13am Hyperlipidemia August 02, 2024 8:1 3am JANNETH (obstructive sleep apnea) July 8:13am History of radiofrequency ab lation procedure for cardiac arrhythmia November 05, 2024 3:02pm Paroxysmal atrial fibrillation October 3:02pm History of implantable cardiac defibrill ator (ICD) November 05, 2024 3:02pm Hypertrophic cardiomyopathy November 05, 2 025 3:02pm Chief Complaint Admit Date 1 Y FU July 19, 2024 7:44 am 6 M FU/SR @ 8:30 August 02, 2024 8:1 3am Pacer Check Remote August 02, 2024 9:0 0am Pacer Check Remote November 05, 2024 9:00 am Thinks he received shock November 05, 2024 3:02pm Chief Complaint Admit Date 6 M FU/SR @ 8:30 August 02, 2024 8:1 3am Pacer Check Remote August 02, 2024 9:0 0am Pacer Check Remote November 05, 2024 9:00 am Thinks he received shock November 05, 2024 3:02pm Cough November 20, 2024 2:0 0pm Reason for Visit Admit Date Paroxysmal atrial fibrillation July 8:13am History of implantable cardiac defibrill ator (ICD) August 02, 2024 8:13am Hypertrophic cardiomyopathy August 02, 2024 8:13am Non-sustained ventricular tachycardia Ap 2024 8:13am History of radiofrequency ab lation procedure for cardiac arrhythmia August 02, 2024 8:13am Atherosclerotic heart diseas e of [place] coronary artery without angina pectoris August 02, 2024 8:13am Hyperlipidemia August 02, 2024 8:1 3am JANNETH (obstructive sleep apnea) July 8:13am History of radiofrequency ab lation procedure for cardiac arrhythmia November 05, 2024 3:02pm Paroxysmal atrial fibrillation October 3:02pm History of implantable cardiac defibrill ator (ICD) November 05, 2024 3:02pm Hypertrophic cardiomyopathy November 05, 2 025 3:02pm Acute sinusitis November 20, 2024 2:0 0pm Chief Complaint Admit Date 6 M FU/SR @ 8:30 August 02, 2024 8:1 3am Pacer Check Remote August 02, 2024 9:0 0am Pacer Check Remote November 05, 2024 9:00 am Thinks he received shock November 05, 2024 3:02pm Cough November 20, 2024 2:0 0pm Pacer Check Remote November 20, 2024 9:3 5pm Chief Complaint Admit Date Pacer Check Remote November 05, 2024 9:00 am Thinks he received shock November 05, 2024 3:02pm Cough November 20, 2024 2:0 0pm Pacer Check Remote November 20, 2024 9:3 5pm Pacer Check Remote December 17, 2024 12:16am Reason for Visit Admit Date History of radiofrequency ab lation procedure for cardiac arrhythmia November 05, 2024 3:02pm Paroxysmal atrial fibrillation October 3:02pm History of implantable cardiac defibrill ator (ICD) November 05, 2024 3:02pm Hypertrophic cardiomyopathy November 05, 2 025 3:02pm Acute sinusitis November 20, 2024 2:0 0pm Reason for Referral Specialty Diagnoses / Procedures Referred By Martine gutierrez Referred To Contact Laci Eller MD [address] [place] [address] Referral ID Status Reason Start Date Expiration Date Visits Re quested Visits Authorized [id number] Denied 1 1 Additional Source Comments (unrecognized sect ion and content) No Status Records FoundNo Status Records FoundNo Status Records FoundNo Status Records FoundNo Status Records FoundNo Status Records FoundNo Status Records Found INFORMATION SOURCE (unrecogn ized section and content) DATE CREATED AUTHOR 06/07/2018 [facility] [facility] ([place]) DATE CREATED AUTHOR AUTHOR'S ORGANIZ ATION 04/04/2021 [facility] [place] DATE CREATED AUTHOR AUTHOR'S ORGANIZ ATION 08/09/2021 [employer] DATE CREATED AUTHOR AUTHOR'S ORGANIZ ATION 08/10/2021 [facility] DATE CREATED AUTHOR AUTHOR'S ORGANIZ ATION 06/07/2023 [facility] DATE CREATED AUTHOR AUTHOR'S ORGANIZ ATION 03/06/2024 [facility] DATE CREATED AUTHOR AUTHOR'S ORGANIZ ATION 02/09/2025 [facility] Goals (unrecognized section and content) Goals may be documented in a n alternate sectionGoals may be documented in an alternate sectionGoals may be documented in an alternate sectionGoals may be documented in an alternate sectionGoals may be documented in an alternate sectionGoals may be documented in an alternate sectionGoals may be documented in an alternate sectionGoals may be documented in an alternate sectionGoals may be documented in an alternate sectionGoals may be documented in an alternate sectionGoals may be documented in an alternate section Source Comments (unrecognize d section and content) In the event this informatio n is protected by the Federal Confidentiality of Alcohol and Drug Abuse Patient Records regulations: The Federal rules restrict any use of the information to criminally investigate or prosecute any alcohol or drug abuse patient.[facility] the event this information is protected by the Federal Confidentiality of Alcohol and Drug Abuse Patient Records regulations: The Federal rules restrict any use of the information to criminally investigate or prosecute any alcohol or drug abuse patient.[facility] Center[facility] the event this information is protected by the Federal Confidentiality of Alcohol and Drug Abuse Patient Records regulations: The Federal rules restrict any use of the information to criminally investigate or prosecute any alcohol or drug abuse patient.[facility] Center[facility] the event this information is protected by the Federal Confidentiality of Alcohol and Drug Abuse Patient Records regulations: The Federal rules restrict any use of the information to criminally investigate or prosecute any alcohol or drug abuse patient.[facility] Center[facility] the event this information is protected by the Federal Confidentiality of Alcohol and Drug Abuse Patient Records regulations: The Federal rules restrict any use of the information to criminally investigate or prosecute any alcohol or drug abuse patient.[facility] Center[facility] the event this information is protected by the Federal Confidentiality of Alcohol and Drug Abuse Patient Records regulations: The Federal rules restrict any use of the information to criminally investigate or prosecute any alcohol or drug abuse patient.[facility] Center[facility] the event this information is protected by the Federal Confidentiality of Alcohol and Drug Abuse Patient Records regulations: The Federal rules restrict any use of the information to criminally investigate or prosecute any alcohol or drug abuse patient.[facility] CenterIn the event this information is protected by the Federal Confidentiality of Alcohol and Drug Abuse Patient Records regulations: The Federal rules restrict any use of the information to criminally investigate or prosecute any alcohol or drug abuse patient.[facility] CenterIn the event this information is protected by the Federal Confidentiality of Alcohol and Drug Abuse Patient Records regulations: The Federal rules restrict any use of the information to criminally investigate or prosecute any alcohol or drug abuse patient.[facility] Center[facility] the event this information is protected by the Federal Confidentiality of Alcohol and Drug Abuse Patient Records regulations: The Federal rules restrict any use of the information to criminally investigate or prosecute any alcohol or drug abuse patient.[facility] Center[facility] the event this information is protected by the Federal Confidentiality of Alcohol and Drug Abuse Patient Records regulations: The Federal rules restrict any use of the information to criminally investigate or prosecute any alcohol or drug abuse patient.[facility] Center[facility] the event this information is protected by the Federal Confidentiality of Alcohol and Drug Abuse Patient Records regulations: The Federal rules restrict any use of the information to criminally investigate or prosecute any alcohol or drug abuse patient.[facility] CenterIn the event this information is protected by the Federal Confidentiality of Alcohol and Drug Abuse Patient Records regulations: The Federal rules restrict any use of the information to criminally investigate or prosecute any alcohol or drug abuse patient.[facility] Center[facility] the event this information is protected by the Federal Confidentiality of Alcohol and Drug Abuse Patient Records regulations: The Federal rules restrict any use of the information to criminally investigate or prosecute any alcohol or drug abuse patient.[facility] Center[facility] the event this information is protected by the Federal Confidentiality of Alcohol and Drug Abuse Patient Records regulations: The Federal rules restrict any use of the information to criminally investigate or prosecute any alcohol or drug abuse patient.[facility] CenterIn the event this information is protected by the Federal Confidentiality of Alcohol and Drug Abuse Patient Records regulations: The Federal rules restrict any use of the information to criminally investigate or prosecute any alcohol or drug abuse patient.[facility] CenterIn the event this information is protected by the Federal Confidentiality of Alcohol and Drug Abuse Patient Records regulations: The Federal rules restrict any use of the information to criminally investigate or prosecute any alcohol or drug abuse patient.[facility] CenterIn the event this information is protected by the Federal Confidentiality of Alcohol and Drug Abuse Patient Records regulations: The Federal rules restrict any use of the information to criminally investigate or prosecute any alcohol or drug abuse patient.[facility] Reason for Visit (unrecogniz ed section and content) Reason Comments 6 month follow up 6 month follow up Specialty Diagnoses / Procedures Referred By Martine gutierrez Referred To Contact FAMILY MEDICINE Diagnoses ESTABLISHED PATIENT/ PHYSICAL Procedures ESTABLISHED LEVEL 3 VISIT Self Yusef Phipps, 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 [address] [place] [address] Referral ID Status Reason Start Date Expiration Date Visits Re quested Visits Authorized [id number] Closed 04/05/2022 04/17/2022 1 1 Reason Comments Research IRB# [id number] [facility] Rickie dy Specialty Diagnoses / Procedures Referred By Contac t Referred To Contact Cardiology / CARD [place] Diagnoses Ph.[id number] [facility] 8Y 05/10-07/09 Res coord [phone] [place] [address] Procedures PHYS/QHP TELEPHONE EVALUATION 5-10 MIN RESEARCH NURSE CARD PHONE CALL Mouna Ingram MD [address] [place] [address] Fl, Research Nurse Card Imaging [address] [place] [address] Referral ID Status Reason Start Date Expiration Date Visits Re quested Visits Authorized [id number] Closed 06/16/2022 04/17/2023 1 0 Reason Comments Yearly Exam Wellness CPE Specialty Diagnoses / Procedures [facility] Referred To Contact Family Medicine / FAMILY MEDICINE Diagnoses Wellness examination Wellness Procedures OFFICE/OUTPATIENT ESTABLISHED MOD MDM 30-39 MIN EST WELL VISIT Self Laci Eller MD [address] [place] [address] Referral ID Status Reason Start Date Expiration Date Visits Re quested Visits Authorized [id number] Closed 10/06/2022 04/17/2023 1 1 Reason Comments Research IRB #[id number] [facility] Nov el Predictors Registry Reason Comments Wellness Reason Comments Pending mounjaro Reason Comments Denied, Mounjaro Reason Comments Weight Problem Reason Onset Date Comments Refill Request 12/12/2023 Reason Comments 3 Month Follow up Care Teams (unrecognized sec tion and content) Business Development Agent Relationship Specialty Start Date End Date Laci Eller MD PCP - General 06/21/07 Business Development Agent Relationship Specialty Start Date End Date Laci Eller MD PCP - General 06/21/07 Team Status: Active Member Role Status Dates Dr. Laci Eller MD Family Provider Active Dr. Laci Eller MD Primary Care Provider Active Team Status: Inactive Member Role Status Dates Dr. Laci Eller MD Primary Care Provider, Referrin g Provider Active Dr. Johann Blunt DO Attending Provider Active Team Status: Inactive Member Role Status Dates Dr. Laci Eller MD Primary Care Provider, Referrin g Provider Active Lauren Haynes PA, PA Attending Provider Active Team Status: Active Member Role Status Dates Dr. Laci Eller MD Primary Care Provider Active Dr. Garrett Noguera MD Attending Provider Active Team Status: Inactive Member Role Status Dates Dr. Laci Eller MD Primary Care Provider Active Dr. Johann Blunt DO Attending Provider Active Team Status: Inactive Member Role Status Dates Dr. Laci Eller MD Primary Care Provider Active Lauren Haynes PA, PA Attending Provider Active Business Development Agent Relationship Specialty Start Date End Date Laci Eller MD PCP - General 06/21/07 Business Development Agent Relationship Specialty Start Date End Date Laci Eller MD PCP - General 06/21/07 Team Status: Inactive Member Role Status Dates Dr. Laci Eller MD Primary Care Provider, Referrin g Provider Active Alexandrea Cedeno Attending Provider Active Team Status: Inactive Member Role Status Dates Dr. Laci Eller MD Primary Care Provider Active Lauren Haynes PA, PA Attending Provider, Referr ing Provider Active Business Development Agent Relationship Specialty Start Date End Date Laci Eller MD PCP - General 06/21/07 Business Development Agent Relationship Specialty Start Date End Date Laci Eller MD PCP - General 06/21/07 Business Development Agent Relationship Specialty Start Date End Date Laci Eller MD PCP - General 06/21/07 Business Development Agent Relationship Specialty Start Date End Date Laci Eller MD PCP - General 06/21/07 Business Development Agent Relationship Specialty Start Date End Date Laci Eller MD PCP - General 06/21/07 Business Development Agent Relationship Specialty Start Date End Date Laci Eller MD PCP - General 06/21/07 Business Development Agent Relationship Specialty Start Date End Date Laci Eller MD PCP - General 06/21/07 Business Development Agent Relationship Specialty Start Date End Date Laci Eller MD PCP - General 06/21/07 Business Development Agent Relationship Specialty Start Date End Date Laci Eller MD PCP - General 06/21/07 Team Status: Active Member Role/Relationship Status Dates Dr. Laci Eller MD Family Provider Active Dr. Laci Eller MD Primary Care Provider Active Team Status: Inactive Member Role/Relationship Status Dates Dr. Laci Eller MD Primary Care Provider Active Start: July 19, 2024 End: July 19, 2024 Dr. Laci Eller MD Referring Provider Active Start: July 19, 2024 End: July 19, 2024 Kaylan Torres MIDDLEWARE ENGINEER, MIDDLEWARE ENGINEER-C Attending Provider Active Start: July 19, 2024 End: July 19, 2024 Team Status: Inactive Member Role/Relationship Status Dates Dr. Laci Eller MD Primary Care Provider Active Start: August 02, 2024 End: August 02, 2024 Dr. Laci Eller MD Referring Provider Active Start: August 02, 2024 End: August 02, 2024 Savannah Parada MIDDLEWARE ENGINEER, MIDDLEWARE ENGINEER-C Attending Provider Active Start: August 02, 2024 End: August 02, 2024 Team Status: Inactive Member Role/Relationship Status Dates Dr. aLci Eller MD Primary Care Provider Active Start: August 02, 2024 End: August 02, 2024 Dr. Garrett Noguera MD Attending Provider Active S tart: August 02, 2024 End: August 02, 2024 Team Status: Inactive Member Role/Relationship Status Dates Dr. Laci Eller MD Primary Care Provider Active Start: November 05, 2024 End: November 05, 2024 Dr. Laci Eller MD Referring Provider Active Start: November 05, 2024 End: November 05, 2024 Alexandrea Cedeno Attending Provider Active Start: 2024 End: November 05, 2024 Team Status: Inactive Member Role/Relationship Status Dates Dr. Laci Eller MD Primary Care Provider Active Start: November 05, 2024 End: November 05, 2024 Dr. Garrett Noguera MD Attending Provider Active S tart: November 05, 2024 End: November 05, 2024 Team Status: Inactive Member Role/Relationship Status Dates Dr. Laci Eller MD Primary Care Provider Active Start: November 05, 2024 End: November 05, 2024 Dr. Laci Eller MD Referring Provider Active Start: November 05, 2024 End: November 05, 2024 Alexandrea Cedeno Attending Provider Active Start: 2024 End: November 05, 2024 Team Status: Active Member Role/Relationship Status Dates Dr. Laci Eller MD Primary Care Provider Active Team Status: Inactive Member Role/Relationship Status Dates Dr. Laci Eller MD Primary Care Provider Active Start: August 02, 2024 End: August 02, 2024 Dr. Laci Eller MD Referring Provider Active Start: August 02, 2024 End: August 02, 2024 Savannah Parada NP, MIDDLEWARE ENGINEER-C Attending Provider Active Start: August 02, 2024 End: August 02, 2024 Team Status: Inactive Member Role/Relationship Status Dates Dr. Laci Eller MD Primary Care Provider Active Start: August 02, 2024 End: August 02, 2024 Dr. Garrett Noguera MD Attending Provider Active S tart: August 02, 2024 End: August 02, 2024 Team Status: Inactive Member Role/Relationship Status Dates Dr. Laci Eller MD Primary Care Provider Active Start: November 05, 2024 End: November 05, 2024 Dr. Garrett Noguera MD Attending Provider Active S tart: November 05, 2024 End: November 05, 2024 Team Status: Inactive Member Role/Relationship Status Dates Dr. Laci Eller MD Primary Care Provider Active Start: November 20, 2024 End: November 20, 2024 Felipe KIM PA Attending Provider Active Sta rt: November 20, 2024 End: November 20, 2024 Team Status: Inactive Member Role/Relationship Status Dates Dr. Laci Eller MD Primary Care Provider Active Start: November 20, 2024 End: November 20, 2024 Dr. Garrett Noguera MD Attending Provider Active S tart: November 20, 2024 End: November 20, 2024 Team Status: Inactive Member Role/Relationship Status Dates Dr. Laci Eller MD Primary Care Provider Active Start: November 05, 2024 End: November 05, 2024 Dr. Garrett Noguera MD Attending Provider Active S tart: November 05, 2024 End: November 05, 2024 Dr. Garrett Noguera MD Referring Provider Active S tart: November 05, 2024 End: November 05, 2024 Team Status: Inactive Member Role/Relationship Status Dates Dr. Laci Eller MD Primary Care Provider Active Start: November 05, 2024 End: November 05, 2024 Dr. Laci Eller MD Referring Provider Active Start: November 05, 2024 End: November 05, 2024 Dr. Garrett Noguera MD Attending Provider Active S tart: November 05, 2024 End: November 05, 2024 Team Status: Inactive Member Role/Relationship Status Dates Dr. Laci Eller MD Primary Care Provider Active Start: November 20, 2024 End: November 20, 2024 Felipe KIM PA Attending Provider Active Sta rt: November 20, 2024 End: November 20, 2024 Team Status: Inactive Member Role/Relationship Status Dates Dr. Laci Eller MD Primary Care Provider Active Start: November 20, 2024 End: November 20, 2024 Dr. Garrett Noguera MD Attending Provider Active S tart: November 20, 2024 End: November 20, 2024 Dr. Garrett Noguera MD Referring Provider Active S tart: November 20, 2024 End: November 20, 2024 Team Status: Inactive Member Role/Relationship Status Dates Dr. Laci Eller MD Primary Care Provider Active Start: December 17, 2024 End: December 17, 2024 Dr. Garrett Noguera MD Attending Provider Active S tart: December 17, 2024 End: December 17, 2024 FOR RECORDS PERTAINING TO PATIENTS WHO ARE OR HAVE BEEN ENROLLED IN A CHEMICAL DEPENDENCY/SUBSTANCEABUSE PROGRAM, SOME INFORMATION MAY BE OMITTED. This clinical summary was aggregated from multiple sources. Caution should be exercised in using it in the provision of clinical care. This summary normalizes information from multiple sources, and as a consequence, information in this document may materially change the coding, format and clinical context of patient data. In addition, data may be omitted in some cases. CLINICAL DECISIONS SHOULD BE BASED ON THE PRIMARY CLINICAL RECORDS. [facility]. provides no warranty or guarantee of the accuracy or completeness of information in this document.
--- NOTE | 2025-03-09 01:12 | EX.ED.DYSGE1 ---
HPI History of Present Illness Chief Complaint: Syncope Informant: patient and spouse/S.O. Narrative Narrative: Patient is a 59-year-old male with past ministry of hypertension hyperlipidemia hypertrophic cardiomyopathy and paroxysmal A-fib currently on Eliquis. He states that he was on the couch and then stood up and walked up the stairs. He states once he reached the top he felt very lightheaded like he was going to pass out. He states he laid down on the ground. According to family he looked blue but he was never unconscious. He states he did not feel like his heart was racing or skipping beats during this time. He states after a few minutes symptoms resolved. However because of the event he presents to the ER for evaluation. He states he feels perfectly normal at this time [facility] Medical History (Updated 03/10/25 @ 22:[address] Moses Reynoso, ) Essential hypertension Paroxysmal atrial fibrillation Myocardial fibrosis determined by magnetic resonance imaging (06/01/14) Atherosclerotic heart disease of [place] coronary artery without angina pectoris Atrial tachycardia Hyperlipidemia Non-sustained ventricular tachycardia Frequent PVCs Obesity Syncope History of melanoma Hypertrophic cardiomyopathy Atrial arrhythmia Home Medications ?Medication ?Instructions ?Recorded ?Last Taken ?Type atorvastatin 40 mg tablet 40 mg PO QHS #90 tabs 06/18/24 03/07/25 Rx metoprolol succinate 100 mg 100 mg PO BID #180 tabs 08/01/24 03/08/25 Rx tablet,extended release 24 hr apixaban 5 mg tablet (Eliquis) 5 mg PO BID #60 tabs 08/10/24 03/08/25 Rx lisinopril 5 mg tablet 5 mg PO DAILY #90 tabs 10/17/24 03/07/25 Rx amlodipine 5 mg tablet (Norvasc) 5 mg PO QDAY #30 tabs 03/05/25 03/07/25 Rx Allergy/AdvReac Type Severity Reaction Status Date / Time cefadroxil (From [facility]) Allergy Severe Rash Verified 03/08/25 23:43 Family History Father CAD (coronary artery disease) Hx of CABG Myocardial infarction, Onset Age: 41 Uncle CAD (coronary artery disease) Myocardial infarction, Onset Age: 40 Surgical History Lipoma History of radiofrequency ablation procedure for cardiac arrhythmia (05/08/21) History of coronary artery stent placement (06/20/20) History of melanoma excision History of left heart catheterization (06/04/05) History of implantable cardiac defibrillator (ICD) (07/24/14) History of arthroscopic knee surgery History of shoulder surgery Social History Smoking Status: Never smoker alcohol intake: current details: Rare substance use type: does not use ROS ROS ED Constitutional Constitutional ED: Denies chills or fever(s) Eyes Eyes: Denies change in vision ENT ENT ED: Denies sore throat Cardiovascular Cardiovascular: Reports other Details: Positive near syncope ; Denies chest pain, palpitations or racing heartbeat Respiratory/Chest Respiratory/Chest: Denies cough or dyspnea Gastrointestinal Gastrointestinal: Denies abdominal pain, diarrhea, nausea or vomiting Musculoskeletal Musculoskeletal: Denies myalgias Integumentary Denies rash Neurologic Neurologic: Denies headache(s) Hematologic/Lymphatic Hematologic/Lymphatic: Reports easy bleeding and easy bruising EXAM Physical Exam Const Vital Signs: 03/08/25 23:33 03/08/25 23:44 03/09/25 00:15 Temperature 97.8 F Temperature Source Oral Pulse Rate 62 Respiratory Rate 16 Respiratory Pattern Normal Blood Pressure 140/71 H Blood Pressure [Lying] 131/67 H Blood Pressure [Sitting (for 1 minute prior to obtaining)] 126/71 H Blood Pressure [Standing (for 1 minute prior to obtaining)] 118/75 Blood Pressure Mean 94 Blood Pressure Mean [Lying] 88 Blood Pressure Mean [Sitting (for 1 minute prior to obtaining)] 89 Blood Pressure Mean [Standing (for 1 minute prior to obtaining)] 89 Pulse Ox 98 Oxygen Delivery Method Room Air Positive well nourished and well developed General Appearance ED: well developed; Negative for pallor HEENT HEENT Narrative: Normocephalic atraumatic No tongue or lip swelling no oral lesions no airway edema or compromise No secondary findings in the posterior pharynx to suggest infection No tongue or cheek biting to suggest seizure activity Eyes PERRL and EOMs intact bilaterally General Eye ED: Negative for pale conjunctiva or scleral icterus Neck supple Resp normal respiratory effort and clear to auscultation bilaterally Cardio regular rate and regular rhythm Rate: other Other Details: Radial and carotid pulses are equal and symmetric GI normal to inspection, nondistended, normoactive bowel sounds, non-tender, non-distended and no masses GI Narrative: No voluntary guarding or rigidity or pulsatile mass Auscultation: normoactive bowel sounds Palpation: soft Extremity normal to inspection Neuro oriented x3, CN's II-XII intact bilaterally and no sensory deficits noted Sensorium / Orientation: alert Motor Exam: strength 5/5 throughout Psych mental status grossly normal Skin no rashes or lesions noted General Skin Exam: Negative for jaundice or pallor MDM MDM MDM Narrative Medical decision making narrative: Patient arrived to ER slightly hypertensive but has a past medical history of this. He reported a near syncopal event at home which resolved spontaneously after lying on the ground. He has a normal neurologic exam and according to patient and family there was no true loss of consciousness or seizure activity witnessed. In order to assess for potential cause of his symptoms such as acute blood loss anemia acute kidney injury electrolyte abnormality or cardiac dysrhythmia basic blood work was obtained. Blood work revealed no clinically significant findings and we did interrogate his ICD to ensure there was no abnormal heart rhythms such as A-fib or ventricular tachycardia or ventricular fibrillation. Interrogation revealed no abnormal rhythms. While he was on the general ophthalmologist there was no cardiac dysrhythmias or pauses noted. The patient at the end of the workup was able to walk throughout the ER without return of symptoms. Therefore this time as vitals are stable overall workup is negative and patient can ambulate without return of symptoms there is no need for further intervention and is otherwise safe for discharge. History & Record Review Discussion w/independent historian: Patient Lab Data Attestation: I reviewed the patient's lab results. Labs: Laboratory Results - last 24 hr 03/08/25 23:51 WBC 9.8 RBC 5.70 Hgb 16.9 H Hct 49.0 MCV 86.0 MCH 29.6 MCHC 34.5 RDW Std Deviation 41.7 RDW Coeff of Marlo 13.4 Plt Count 189 MPV 11.4 Immature Gran % (Auto) 0.300 Neut % (Auto) 45.4 L Lymph % (Auto) 44.4 H [place] % (Auto) 6.4 Eos % (Auto) 2.8 Baso % (Auto) 0.7 Absolute Neuts (auto) 4.5 Absolute Lymphs (auto) 4.35 Nucleated RBC % 0 Sodium 138 Potassium 3.9 Chloride 104 Carbon Dioxide 21.2 Anion Gap 13 BUN 17 Creatinine 1.06 Estim Creat Clear Calc 92.87 Est GFR (MDRD) Non-Af 80 BUN/Creatinine Ratio 16.3 Glucose 104 H Calcium 8.7 Magnesium 2.2 Discharge Plan Triage Chief Complaint: Syncope ED Provider: Moses Reynoso Dx/Rx/DC Orders Clinical Impression: Near syncope, Hyperlipidemia, Essential hypertension, Hypertrophic cardiomyopathy, Paroxysmal atrial fibrillation, Current use of half-way anticoagulation Instructions: Dizziness Fainting Causes Prescriptions: No Action atorvastatin 40 mg tablet 40 mg PO QHS Qty: 90 3RF metoprolol succinate 100 mg tablet extended release 24 hr 100 mg PO BID Qty: 180 3RF Eliquis 5 mg tablet 5 mg PO BID Qty: 60 11RF lisinopril 5 mg tablet 5 mg PO DAILY Qty: 90 4RF amlodipine [Norvasc] 5 mg tablet 5 mg PO QDAY Qty: 30 11RF Primary Care Provider: Duane Ellison Referrals: Duane Ellison MD [Primary Care Provider, Family Practice] Activity Restrictions/Additional Instructions: Your workup today revealed no clinically significant findings. Please follow-up with your family doctor and/or corporate relations director for repeat evaluation. Continue all your home medications as directed by your doctor. Return to the ER should you have any further concern Print Language: Mongolian Disposition Disposition: Home, Self Care Discharge Date/Time: 03/09/25 01:22
[2025-03-09 01:20] VITALS: BP 138/68; PULSE 62; RESP 16; TEMP 37; O2SAT 99
== END 2025-03-09 01:22 | disposition home or self-care (01) ==
PROVIDERS: Emergency Provider Emergency Medicine; PCP Family Medicine; Visit Provider Emergency Medicine
DX: R55 Syncope and collapse (principal); I48.0 Paroxysmal atrial fibrillation; I42.2 Other hypertrophic cardiomyopathy; I10 Essential (primary) hypertension; E78.5 Hyperlipidemia, unspecified; I25.10 Atherosclerotic heart disease of native coronary artery without angina pectoris; Z95.5 Presence of coronary angioplasty implant and graft; Z79.01 Long term (current) use of anticoagulants; Z79.899 Other long term (current) drug therapy; Z95.810 Presence of automatic (implantable) cardiac defibrillator
CPT/HCPCS: 80048; 83735; 85025; 93005; 99285; A4216